=== PATIENT | female | born 1950 | race Caucasian/White ===

== ENCOUNTER 2020-03-02 07:18 | Outpatient (REF) | payer MEDICARE, OTHER, SELFPAY ==
--- NOTE | 2020-03-02 08:00 | MR_ITS ---
EXAMINATION: MR BREAST WITHOUT AND WITH CONTRAST, BILATERAL CLINICAL INFORMATION: 69 year old status post left lumpectomy for breast cancer 2017. COMPARISON: MRI of 05/20/2018 and correlation to mammogram of 08/29/2019. TECHNIQUE: Imaging was performed with a dedicated breast coil. Prior to the administration of contrast, bilateral axial T1 and bilateral axial T2 weighted sequences were obtained. After the uneventful administration of?8 mL of Gadavist, dynamic contrast-enhanced VIBRANT series through the breasts in the axial plane were performed. Subtracted images were performed and reviewed. A delayed sagittal sequence through both breasts was acquired. Additionally, CAD post-processing, including maximum intensity projections, 3-D reconstructions and kinetic analysis, were performed an independent workstation and reviewed by the interpreting radiologist is a portion of this exam. FINDINGS: The patient's fibroglandular tissue demonstrates moderate background enhancement. LEFT BREAST: There is a stable area of architectural distortion in the upper-outer quadrant from prior lumpectomy. There is no associated abnormal enhancement. There are no fluid collections. There are no new areas of mass or non-mass enhancement suspicious of malignancy. Previously described edematous changes in the anterior chest wall are less prominent at this time. There are no additional findings on T2-weighted imaging or kinetic curve analysis. RIGHT BREAST: There are no areas of mass or non-mass enhancements. There are no secondary signs of malignancy. There are no additional findings on T2-weighted imaging or kinetic curve analysis. There is no suspicious internal mammary chain or axillary adenopathy. The previously described area of enhancement along the left chest wall is less pronounced at this time. This may represent resolving postsurgical change. IMPRESSION: 1. Postlumpectomy changes left breast. 2. No new MRI suspicious findings in either breast . ASSESSMENT: LEFT BREAST: BI-RADS 2, benign. RIGHT BREAST: BI-RADS 1, negative. RECOMMENDATIONS: Routine mammographic imaging as per most recent study and MRI as per high-risk protocol.
[2020-03-02 08:01] LABS: Blood Urea Nitrogen 18 mg/dL (9-16); Estimated Glomerular Filt Rate 54
== END 2020-03-02 07:19 | disposition home or self-care (01) ==
LOC: HO.MRI 07:18
PROVIDERS: Surgery; Visit Provider Surgery Plastic and Reconstructive Surgery
DX: C50.412 Malignant neoplasm of upper-outer quadrant of left female breast (principal)
CPT/HCPCS: 77049; 82565; 84520

== ENCOUNTER → 2020-05-01 08:29 | Outpatient (BNVA) | payer MEDICARE, OTHER, SELFPAY | PROVIDERS: PCP Internal Medicine; Referring Provider Internal Medicine; Visit Provider Surgery | DX: Z85.3 Personal history of malignant neoplasm of breast (principal) | CPT/HCPCS: 99212 ==

== ENCOUNTER 2020-07-23 12:19 | Outpatient (REF) | payer MEDICARE, OTHER, SELFPAY ==
[2020-07-23 14:25] LABS: Estimated Average Glucose 105 mg/dL; Hemoglobin A1c % 5.3 %
[2020-07-23 14:55] LABS: Glucose Fasting 102 mg/dL (60-99)
[2020-07-23 15:23] LABS: TSH reflex Free T4 0.55 uIU/mL (0.32-4.0)
== END 2020-07-23 12:20 | disposition home or self-care (01) ==
LOC: HO.LNP 12:19
PROVIDERS: Visit Provider Internal Medicine
DX: E03.9 Hypothyroidism, unspecified (principal); R73.03 Prediabetes
CPT/HCPCS: 82947; 83036; 84443

== ENCOUNTER 2020-10-08 09:45 | Outpatient (REF) | payer MEDICARE, OTHER, SELFPAY ==
--- NOTE | ~2020-10-08 | MM_ITS ---
EXAMINATION: MM SCREENING DIGITAL BREAST TOMOSYNTHESIS, BILATERAL CLINICAL INFORMATION: Screening. Asymptomatic. Status post left lumpectomy for 2016 for invasive ductal cancer with focal DCIS. Due for yearly. COMPARISON: Mammography: 08/29/2019, 08/23/2018, 08/21/2017, 08/29/2016, 08/19/2016 TECHNIQUE: Digital breast tomosynthesis is performed in both the craniocaudal and mediolateral oblique views along with computer-aided detection (CAD). Synthesized 2D images are generated from the tomosynthesis. Additional left MLO view is provided. FINDINGS: There are scattered areas of fibroglandular density (ACR BI-RADS breast composition Category b). There are no significant masses, abnormal calcifications, or other abnormalities. There are post therapy changes again noted on left with mild reduced breast size and stable scarring. No significant changes from prior studies. MM/MM tomosynthesis screening BI IMPRESSION: No mammographic evidence of malignancy. Post therapy changes left breast. ASSESSMENT: BI-RADS 2: Benign RECOMMENDATION: Routine annual mammography screening. This patient's information was entered into a reminder system with a target due date for their next mammogram.
== END 2020-10-08 09:46 | disposition home or self-care (01) ==
LOC: HO.MAMMO 09:45
PROVIDERS: PCP Internal Medicine; Visit Provider Internal Medicine Medical Oncology
DX: Z12.31 Encounter for screening mammogram for malignant neoplasm of breast (principal)
CPT/HCPCS: 77063; 77067

== ENCOUNTER → 2020-10-30 08:48 | Outpatient (BNVA) | payer OTHER, MEDICARE, SELFPAY | PROVIDERS: PCP Internal Medicine; Referring Provider Internal Medicine; Visit Provider Surgery ==

== ENCOUNTER → 2020-12-13 08:54 | Outpatient (BNVA) | payer OTHER, MEDICARE, SELFPAY | PROVIDERS: PCP Internal Medicine; Referring Provider Internal Medicine; Visit Provider Surgery ==

== ENCOUNTER 2021-02-01 10:19 | Outpatient (REF) | payer MEDICARE, OTHER, SELFPAY ==
[2021-02-01 10:23] LABS: MANUAL DIFF FLAG NO
[2021-02-01 11:42] LABS: Basophils Percent Auto 0.6 % (0-2); Eosinophils Absolute Auto 0.3 X10*3/uL (0.0-0.4); Hematocrit 48.9 % (37-47); Hemoglobin 16.3 g/dl (12.0-16.0); Imm Gran Abs Auto 0.02 X10*3/uL (0.00-0.03); Imm Gran Pct Auto 0.3 % (0.0-0.4); Lymphocytes Percent Auto 30.4 % (20-40); Mean Corpuscular HGB Conc 33.3 g/dl (31.0-35.0); Mean Corpuscular Hemoglobin 29.5 pg (27.0-33.0); Mean Corpuscular Volume 88.4 fL (80-98); Mean Platelet Volume 10.2 fL (9.4-12.3); Monocytes Absolute Auto 0.7 X10*3/uL (0.1-1.2); Monocytes Percent Auto 10.2 % (2-11); Neutrophils Absolute Auto 3.6 X10*3/uL (2.0-8.3); Neutrophils Percent Auto 54.5 % (45-73); Platelet Count 250 X10*3/uL (160-400); Red Blood Count 5.53 X10*6/uL (4.20-5.50); Red Cell Distribution Width 12.1 % (11.0-16.0); White Blood Count 6.5 X10*3/uL (4.8-10.8)
[2021-02-01 11:46] LABS: Estimated Average Glucose 108 mg/dL; Hemoglobin A1c % 5.4 %
[2021-02-01 12:04] LABS: Appearance Urine CLEAR; Color Urine YELLOW; Glucose Urine UA NEG (NEG); Leukocyte Esterase Urine 2+ (NEG); Nitrite Urine NEG (NEG); Specific Gravity - Urine 1.015 (1.005-1.025); Urine Blood NEG (NEG); Urine Ketones NEG (NEG); Urine Protein NEG (NEG-TRACE)
[2021-02-01 12:10] LABS: Alanine Aminotransferase 15 U/L (0-31); Albumin Level 4.4 g/dL (3.5-5.0); Alkaline Phosphatase 34 U/L (39-117); Anion Gap 14 (12-20); Aspartate Amino Transferase 19 U/L (5-31); Bilirubin Total 0.8 mg/dL (0.0-1.0); Blood Urea Nitrogen 14 mg/dL (9-16); Calcium 9.6 mg/dL (8.4-10.2); Carbon Dioxide 26 mmol/L (22-29); Chloride 106 mmol/L (96-108); Cholesterol 194 mg/dL; Estimated Glomerular Filt Rate 48; Glucose Fasting 110 mg/dL (60-99); HDL Cholesterol 64 mg/dL; LDL Cholesterol Calculated 102 mg/dl; Potassium 3.8 mmol/L (3.3-5.1); Sodium 142 mmol/L (135-145); Triglycerides 140 mg/dL
[2021-02-01 12:19] LABS: Creatinine Urine 146.94 mg/dL; Microalbum/Creatinine Ratio Ur 5.4 ug/mg cr
[2021-02-01 12:22] LABS: TSH reflex Free T4 0.64 uIU/mL (0.32-4.0)
[2021-02-01 12:42] LABS: Bacteria Urine 4+ /LPF; RBC Urine 0 /HPF (0); Renal Epithelial Cells Urine TRACE /LPF; Squamous Epithelial Cell Urine 1+ /LPF; WBC Clumps Urine NOTED
== END 2021-02-01 10:20 | disposition home or self-care (01) ==
LOC: HO.LNP 10:19
PROVIDERS: Visit Provider Internal Medicine
DX: Z00.00 Encounter for general adult medical examination without abnormal findings (principal); E03.9 Hypothyroidism, unspecified; I10 Essential (primary) hypertension; R73.03 Prediabetes; D72.820 Lymphocytosis (symptomatic)
CPT/HCPCS: 80053; 80061; 81001; 81003; 82043; 83036; 84443; 85025

== ENCOUNTER 2021-03-20 06:49 | Day surgery (SDC) | payer MEDICARE, OTHER, SELFPAY ==
[2021-03-14 12:20] VITALS: BMI 30.9
[2021-03-15 12:22] VITALS: BMI 29.9
--- NOTE | 2021-03-19 10:00 | HO.ANESPROP2 ---
Documented by User: Alysia Bell NP 03/19/21 10:04 HPI - Anesthesia Eval Consult details Narrative: 70yo F for Colonoscopy PMFSH Active Problems Active Problems: All Active Problems (Updated 03/15/21 @ 12:20 by Renetta Stevenson, EVELYN) History of left breast cancer (Acute) Past Medical History Medical History Allergy desensitization therapy GERD (gastroesophageal reflux disease) Hiatal hernia History of left breast cancer Hypertension Hypothyroidism Migraine Murmur Family History Family History Father Hypertension Mother Hypertension Sister Cancer of unknown origin Paternal Grandfather Liver cancer Surgical History Surgical History H/O hysterectomy for benign disease H/O oophorectomy History of bunionectomy of left great toe History of cholecystectomy History of esophagogastroduodenoscopy (EGD) History of tonsillectomy Hx of colonoscopy Status post left breast lumpectomy Social History Social History 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 ( has lung cancer Stage IV) Patient Tobacco Use Status: Never used Tobacco Are you DNR?: No Advance Directives: No (will bring copy dos) Advance Directives Information Provided: No Advance Directives on File: No Meds Allergies Allergy/AdvReac Type Severity Reaction Status Date / Time oxycodone Allergy Unknown diarrhea/upset Verified 03/15/21 12:20 stomach ENVIRONMENTAL Allergy Intermediate HAYFEVER Uncoded 03/15/21 12:20 SYMPTOMS Home Medications Medication Instructions Recorded Confirmed Last Taken Type anastrozole 1 mg tablet 1 mg PO DAILY 05/01/20 03/15/21 Unknown History ascorbate calcium (vitamin C) 500 500 mg PO DAILY 05/01/20 03/15/21 Unknown History mg tablet cholecalciferol (vitamin D3) 25 25 mcg PO DAILY 05/01/20 03/15/21 Unknown History mcg (1,000 unit) capsule irbesartan 150 1 tab PO DAILY 05/01/20 03/15/21 Unknown History mg-hydrochlorothiazide 12.5 mg tablet levothyroxine 88 mcg capsule 88 mcg PO DAILY 05/01/20 03/15/21 03/20/21 History multivit with 1 tab PO DAILY 05/01/20 03/15/21 Unknown History tuqqadcq-qzqk-QP-lutein 8 mg iron-400 mcg-300 mcg tablet (Centrum Silver Women) sumatriptan succinate 100 mg 100 mg PO Q2-4H PRN 05/01/20 03/15/21 Unknown History tablet (Imitrex) calcium 03/15/21 03/15/21 Unknown History Exam Exam Date and Time: March 19, 2021 1000 Height,Weight and Vital Signs: Height 5 ft 5 in Weight 81.647 kg Pertinent Lab Results Pertinent Lab Results: Laboratory Tests 02/01/21 02/01/21 07:50 07:50 WBC 6.5 Hgb 16.3 H Hct 48.9 H Plt Count 250 Sodium 142 Potassium 3.8 Chloride 106 Carbon Dioxide 26 BUN 14 Creatinine 1.12 Assessment and Plan Assessment Anesthesia Assessment: Chart Reviewed Documented by User: Mary Anne Cardenas MD 03/20/21 08:12 [facility] Past Medical History Medical History Allergy desensitization therapy GERD (gastroesophageal reflux disease) Hiatal hernia History of left breast cancer Hypertension Hypothyroidism Migraine Murmur Family History Family History Father Hypertension Mother Hypertension Sister Cancer of unknown origin Paternal Grandfather Liver cancer Surgical History Surgical History H/O hysterectomy for benign disease H/O oophorectomy History of bunionectomy of left great toe History of cholecystectomy History of esophagogastroduodenoscopy (EGD) History of tonsillectomy Hx of colonoscopy Status post left breast lumpectomy History of Problems with Anesthesia: Yes (Ponv) Social History Social History 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 ( has lung cancer Stage IV) Patient Tobacco Use Status: Never used Tobacco Are you DNR?: No Advance Directives: No (will bring copy dos) Advance Directives Information Provided: No Advance Directives on File: No Meds Allergies Allergy/AdvReac Type Severity Reaction Status Date / Time oxycodone Allergy Unknown diarrhea/upset Verified 03/15/21 12:20 stomach ENVIRONMENTAL Allergy Intermediate HAYFEVER Uncoded 03/15/21 12:20 SYMPTOMS Home Medications Medication Instructions Recorded Confirmed Last Taken Type anastrozole 1 mg tablet 1 mg PO DAILY 05/01/20 03/15/21 Unknown History ascorbate calcium (vitamin C) 500 500 mg PO DAILY 05/01/20 03/15/21 Unknown History mg tablet cholecalciferol (vitamin D3) 25 25 mcg PO DAILY 05/01/20 03/15/21 Unknown History mcg (1,000 unit) capsule irbesartan 150 1 tab PO DAILY 05/01/20 03/15/21 Unknown History mg-hydrochlorothiazide 12.5 mg tablet levothyroxine 88 mcg capsule 88 mcg PO DAILY 05/01/20 03/15/21 03/20/21 History multivit with 1 tab PO DAILY 05/01/20 03/15/21 Unknown History yhhgzqwp-vrnb-DG-lutein 8 mg iron-400 mcg-300 mcg tablet (Centrum Silver Women) sumatriptan succinate 100 mg 100 mg PO Q2-4H PRN 05/01/20 03/15/21 Unknown History tablet (Imitrex) calcium 03/15/21 03/15/21 Unknown History Exam Airway Mallampati Class: III (Small mouth) TM Dist: >3cm Neck ROM: Full Loose/Missing/Broken Teeth: No Lungs: RRR Other: CTA Assessment and Plan Assessment Anesthesia Assessment: Anesthesia Plan Discussed Final Anesthetic Review History of Problems with Anesthesia: Yes (Ponv) NPO: Yes ASA Class: II Final Preanesthetic Review: Meds/Allgs Chart Reviewed, Consent Obtained/Reviewed and Anes Risks/Benef Reviewed Patient Risk: Low Procedure Risk: Low Anesthetic Plan Anesthetic Plan: MAC: Disposition: Standard PACU
[2021-03-20] MEDS: Lactated Ringers 1,000 ML 100 ML IVCONT (07:28)
[2021-03-20 09:07] VITALS: BP 105/54; PULSE 76; RESP 18; TEMP 36.6; O2SAT 97
--- NOTE | 2021-03-20 09:10 | P.BOP_ITS ---
Brief Operative Note Date of Service: 03/20/21 Pre-op diagnosis: Screening Post-op diagnosis: other (Colon polyps) Procedure: Colonoscopy to the cecum and TI with cold snare polypectomy x 2 Surgeon: Rubén Romero Anesthesia: MAC Was an Gripper Attacher used for this Procedure?: No Estimated blood loss (mL): 3.0 Pathology: other (A. Distal rectal polyps) Condition: stable Disposition: PACU
[2021-03-20 09:22] VITALS: BP 115/39; PULSE 75; RESP 16; TEMP 36.6; O2SAT 96
--- NOTE | 2021-03-20 10:02 | OP_ITS ---
SURGEON: Rubén Romero MD INDICATIONS: The patient presents for followup of personal history of tubular adenoma of the colon, and need for colorectal cancer screening. Full consent has been obtained from her for this, including risks of bleeding and perforation. PREOPERATIVE DIAGNOSIS: POSTOPERATIVE DIAGNOSIS: PROCEDURE PERFORMED: Colonoscopy to cecum and terminal ileum with snare polypectomy. ESTIMATED BLOOD LOSS: COMPLICATIONS: ANESTHESIA: Monitored anesthesia care. ASSISTANTS: SPECIMENS: PREOPERATIVE DIAGNOSES: Colorectal cancer screening and personal history of tubular adenoma of the colon. POSTOPERATIVE DIAGNOSES: Colorectal cancer screening and personal history of tubular adenoma of the colon, colon polyps, diverticulosis, and internal hemorrhoids. DESCRIPTION OF PROCEDURE: The patient was placed in the left lateral decubitus position. The digital rectal exam revealed no abnormalities. The Olympus video pediatric colonoscope was entered into the rectum and advanced easily to the cecum. Once in the cecum, I did identify normal-appearing cecal pouch with appendiceal orifice and a normal-appearing ileocecal valve. The terminal ileum was cannulated and appeared normal. Scope was withdrawn back in the colon. The entire cecum and ileocecal valve appeared normal. The scope was slowly withdrawn assessing all mucosal surfaces carefully. Preparation was excellent. There was a mild amount of sigmoid diverticulosis. There was no sign of colitis nor angiodysplasia. The only polyps that were visualized was seen in the retroflexed position in the rectum. There were 2 approximately 4 or 5 mm polyps, which were each snared and recovered with the cold snare. The polypectomy sites appeared clean, without any sign of residual polyp nor bleeding. There were internal hemorrhoids noted as well. The scope was straightened out and withdrawn from the patient. She tolerated the procedure well and was returned to the recovery area in stable condition. IMPRESSION: 1. Rectal polyps, status post cold snare polypectomy. 2. Diverticulosis. 3. Internal hemorrhoids. PLAN: The results of the pathology will be checked. I would recommend a repeat colonoscopy in 5 years for further screening. She was advised not to use any aspirin nor NSAIDs for 1 week. MD RAFI Hanks/JAY JAY / [id number] MTDD
== END 2021-03-20 10:23 | disposition home or self-care (01) ==
PROVIDERS: PCP Internal Medicine; Visit Provider Internal Medicine
PROC: 0DJD8ZZ Inspection of Lower Intestinal Tract, Via Natural or Artificial Opening Endoscopic (ICD-10-PCS; CPT 45378; principal; 2021-03-20 08:10)
DX: Z12.11 Encounter for screening for malignant neoplasm of colon (principal); Z86.010 Personal history of colon polyps; K62.1 Rectal polyp; K57.30 Diverticulosis of large intestine without perforation or abscess without bleeding; K64.8 Other hemorrhoids; K21.9 Gastro-esophageal reflux disease without esophagitis; I10 Essential (primary) hypertension; C50.912 Malignant neoplasm of unspecified site of left female breast; Z79.811 Long term (current) use of aromatase inhibitors; Z92.3 Personal history of irradiation; Z79.899 Other long term (current) drug therapy; Z90.49 Acquired absence of other specified parts of digestive tract; Z87.01 Personal history of pneumonia (recurrent)
CPT/HCPCS: 45385; 88305

== ENCOUNTER → 2021-07-02 11:31 | Outpatient (BNVA) | payer MEDICARE, OTHER, SELFPAY | PROVIDERS: PCP Internal Medicine; Referring Provider Internal Medicine; Visit Provider Surgery | DX: Z85.3 Personal history of malignant neoplasm of breast (principal) | CPT/HCPCS: 99212 ==

== ENCOUNTER 2021-10-07 08:50 | Outpatient (REF) | payer MEDICARE, OTHER, SELFPAY ==
--- NOTE | ~2021-10-07 | MR_ITS ---
MR LUMBAR SPINE WITHOUT IV CONTRAST CLINICAL INFORMATION: Lumbar disc disease with radiculopathy. COMPARISON: None available. TECHNIQUE: MRI of the lumbar spine was obtained using routine sequences without contrast. FINDINGS: There is transitional anatomy. For the purposes of this report there are hypoplastic ribs versus articulating transverse processes at L1, there are 5 lumbar-type vertebral bodies, and S1 is lumbarized, sharing a rudimentary disc with S2 and incorporated into the sacrum bilaterally. Please correlate with plain films prior to any percutaneous or surgical intervention. There is grade 1/2 degenerative anterolisthesis of L4 on L5 and there is grade 1 degenerative anterolisthesis of L5 on S1. Vertebral body heights are maintained. Disc desiccation at all lumbar levels with exception of L1 on L2 and L2-L3. There is no bone marrow edema. No acute fractures. Conus terminates at the L1 level. No significant extraspinal soft tissue findings. L1-L2: Slight annular disc bulge. Mild bilateral facet arthropathy and ligamentum flavum thickening. No central canal stenosis and no foraminal stenosis. L2-L3: Small annular disc bulge and moderate bilateral hypertrophic facet arthropathy and ligamentum flavum thickening. No central canal stenosis and no foraminal stenosis. L3-L4: There is a diffuse annular disc bulge with a superimposed left paracentral/left lateral disc protrusion that compresses the traversing left L4 nerve root within the left subarticular zone and that results in moderate left-sided foraminal stenosis and probable mass effect on the extraforaminal left L3 nerve root. A right lateral disc protrusion and facet arthropathy result in moderate right-sided foraminal stenosis and mild mass effect on the exiting right L3 nerve root as well. Mild central canal stenosis at this level. L4-L5: Grade 1/2 degenerative anterolisthesis in the setting of severe bilateral hypertrophic facet arthropathy. Uncovered disc osteophyte and ligamentum flavum thickening. Findings in concert result in severe central canal stenosis as well as moderate bilateral foraminal stenosis with mass effect on the exiting L4 nerve roots bilaterally. L5-S1: Grade 1 degenerative anterolisthesis. Severe bilateral hypertrophic facet arthropathy. No central canal stenosis. Mild right-sided foraminal encroachment. MR/MR lumbar spine wo con IMPRESSION: - There is transitional anatomy. For the purposes of this report there are hypoplastic ribs versus articulating transverse processes at L1, there are 5 lumbar-type vertebral bodies, and S1 is lumbarized, sharing a rudimentary disc with S2 and incorporated into the sacrum bilaterally. Please correlate with plain films prior to any percutaneous or surgical intervention. - At L4-L5, grade 1/2 degenerative anterolisthesis and advanced multifactorial degenerative changes result in severe central canal stenosis as well as moderate bilateral foraminal stenosis with mass effect on the exiting L4 nerve roots bilaterally. - At L3-L4, a left paracentral/left lateral disc protrusion compresses the traversing left L4 nerve root within the left subarticular zone and results in moderate left-sided foraminal stenosis with probable mass effect on the extraforaminal left L3 nerve root. Spondylitic changes at L3-L4 also result in moderate right-sided foraminal stenosis and mild mass effect on the exiting right L3 nerve root as well. - Additional degenerative changes as discussed above. There is grade 1 degenerative anterolisthesis of L5 on S1 in the setting of advanced bilateral facet arthropathy at this level.
== END 2021-10-07 08:51 | disposition home or self-care (01) ==
LOC: HO.MRI 08:50
PROVIDERS: Visit Provider Internal Medicine
DX: M51.16 Intervertebral disc disorders with radiculopathy, lumbar region (principal); Z85.3 Personal history of malignant neoplasm of breast
CPT/HCPCS: 72148

== ENCOUNTER 2021-10-11 07:59 | Outpatient (REF) | payer MEDICARE, OTHER, SELFPAY ==
--- NOTE | ~2021-10-11 | MM_ITS ---
EXAMINATION: MM SCREENING DIGITAL BREAST TOMOSYNTHESIS, BILATERAL CLINICAL INFORMATION: History invasive ductal cancer left breast, status post lumpectomy 09/10/2016. Due for yearly. COMPARISON: Mammography: 10/08/2020, 08/29/2019, 08/23/2018, 08/21/2017 TECHNIQUE: Digital breast tomosynthesis is performed in both the craniocaudal and mediolateral oblique views along with computer-aided detection (CAD). Synthesized 2D images are generated from the tomosynthesis. Additional exaggerated left CC view is provided. FINDINGS: There are scattered areas of fibroglandular density (ACR BI-RADS breast composition Category b). There are no significant masses, abnormal calcifications, or other abnormalities. No developing density or interval architectural changes. The axilla are unremarkable. There are stable post therapy changes left breast with mild reduced breast size and minor scarring similar to prior studies. MM/MM tomosynthesis screening BI IMPRESSION: No mammographic evidence of malignancy. Post therapy changes left breast. ASSESSMENT: BI-RADS 2: Benign RECOMMENDATION: Routine annual mammography screening. This patient's information was entered into a reminder system with a target due date for their next mammogram.
== END 2021-10-11 08:00 | disposition home or self-care (01) ==
LOC: HO.MAMMO 07:59
PROVIDERS: PCP Internal Medicine Medical Oncology; Visit Provider Internal Medicine Medical Oncology
DX: Z12.31 Encounter for screening mammogram for malignant neoplasm of breast (principal); Z85.3 Personal history of malignant neoplasm of breast
CPT/HCPCS: 77063; 77067

== ENCOUNTER 2021-12-09 08:00 | Outpatient (RCR) | payer MEDICARE, SELFPAY ==
--- NOTE | 2021-12-04 15:52 | MHC.PT.EP ---
[facility] [place] Office [place] Office [place] Office [address] [phone] F: [phone] F: [phone] F: [phone] F: [phone] Physical Therapy Plan of Care Date of Evaluation: Date of Surgery: Diagnosis: LBP with R sciatica Assessment: Pt is a 71 y/o female referred to PT for eval and treat of R LE Sciatica resulting in decreased tolerance for trunk bending, walking for duration, driving, sleeping, standing for duration, as well as performing HH chores secondary to increased R LE neural tension with radicular symptoms, decreased R LE strength, gait abnormality, lumbar hypomobility, and pain. Pt is deemed an appropriate candidate to receive skilled PT in order to address her physical limitations to improve her functional ability. Frequency and Duration: The patient will be seen 2 x / wk x 5 wks. Short Term Goals: Initiate HEP. R LE radicular Sx abolished. 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 improve core strength to at least good (-); initial: fair (+). Pt will report at most 1/4 disturbed night's sleep; initial: 1/2 disturbed. Pt will no longer be painful with travel; initial: increases pain though does not seek alternate forms of travel. Treatment Plan: Modalities to reduce pain, spasms and effusion. Manual therapy to restore motion and function. Therapeutic exercise to improve strength and flexibility. Neuromuscular re-education for posture and balance. Therapeutic activities to return to functional activities of daily living. Electronically signed by: Stanford Saab PT. Please sign and return to therapist. Thank you for your referral.
== END 2022-02-04 14:34 | disposition home or self-care (01) ==
LOC: HO.PTWFD 08:00
PROVIDERS: Visit Provider Internal Medicine
DX: M51.16 Intervertebral disc disorders with radiculopathy, lumbar region (principal)
CPT/HCPCS: 97035; 97110; 97161; 97530

== ENCOUNTER → 2022-01-07 09:41 | Outpatient (BNVA) | payer MEDICARE, SELFPAY | PROVIDERS: PCP Internal Medicine; Visit Provider Surgery | DX: Z85.3 Personal history of malignant neoplasm of breast (principal) | CPT/HCPCS: 99212 ==

== ENCOUNTER 2022-01-13 10:59 | Outpatient (REF) | payer MEDICARE, SELFPAY ==
--- NOTE | ~2022-01-13 | US_ITS ---
EXAMINATION: US ABDOMEN COMPLETE CLINICAL INFORMATION: Abdominal pain. COMPARISON: None TECHNIQUE: Real-time imaging of the abdominal viscera. FINDINGS: PANCREAS: Normal. ABDOMINAL AORTA: The proximal, mid, and distal segments are normal in caliber. INFERIOR VENA CAVA: Visualized portions are normal. LIVER: Normal. The liver is normal in size. The liver contour is normal. Parenchymal echogenicity is normal. No focal hepatic lesion. There is no intrahepatic biliary duct dilatation seen. GALLBLADDER: Surgically absent. COMMON BILE DUCT: Normal in caliber measuring 0.6 cm in diameter. RIGHT KIDNEY: Normal. No hydronephrosis. No renal calculi or focal parenchymal lesions. The kidney measures 10.8 cm in maximum dimension. LEFT KIDNEY: Normal. No hydronephrosis. No renal calculi or focal parenchymal lesions. The kidney measures 10.3 cm in maximum dimension. SPLEEN: Normal. The spleen measures 8.4 cm in maximum dimension. FREE FLUID: None. US/US abdomen complete IMPRESSION: Unremarkable complete abdomen ultrasound.
[2022-01-13 16:11] LABS: Appearance Urine Clear; Color Urine Yellow; Glucose Urine UA Negative (Negative); Leukocyte Esterase Urine Negative (Negative); Nitrite Urine Negative (Negative); PH 6.5 (5.0-8.0); Specific Gravity - Urine <= 1.005 (1.005-1.025); Urine Blood Negative (Negative); Urine Ketones Negative (Negative); Urine Protein Negative (Neg-Trace)
[2022-01-13 16:15] LABS: Bacteria Urine None Seen (None Seen); Hyaline Casts Urine 0-2 /LPF (0-2); RBC Urine 0-2 /HPF (0-2); Squamous Epithelial Cell Urine 0-2 /HPF (0-2); WBC Urine 0-5 /HPF (0-5)
== END 2022-01-13 11:00 | disposition home or self-care (01) ==
LOC: HO.US 10:59
PROVIDERS: PCP Internal Medicine; Visit Provider Internal Medicine
DX: R10.9 Unspecified abdominal pain (principal)
CPT/HCPCS: 76700; 81001; 87086

== ENCOUNTER 2022-02-03 11:47 | Outpatient (REF) | payer MEDICARE, SELFPAY ==
[2022-02-03 11:51] LABS: MANUAL DIFF FLAG NO
[2022-02-03 12:17] LABS: Basophils Absolute Auto 0.1 X10*3/uL (0.0-0.2); Basophils Percent Auto 1.1 % (0-2); Eosinophils Absolute Auto 0.4 X10*3/uL (0.0-0.4); Eosinophils Percent Auto 6.9 % (0-4); Hematocrit 44.3 % (37.0-47.0); Imm Gran Abs Auto 0.01 X10*3/uL (0.00-0.03); Imm Gran Pct Auto 0.2 % (0.0-0.4); Lymphocytes Absolute Auto 1.9 X10*3/uL (1.2-4.9); Lymphocytes Percent Auto 33.7 % (20-40); Mean Corpuscular HGB Conc 33.9 g/dl (31.0-35.0); Mean Corpuscular Hemoglobin 30.1 pg (27.0-33.0); Mean Corpuscular Volume 88.8 fL (80.0-98.0); Mean Platelet Volume 10.6 fL (9.4-12.3); Monocytes Absolute Auto 0.7 X10*3/uL (0.1-1.2); Monocytes Percent Auto 11.5 % (2-11); Neutrophils Absolute Auto 2.6 x10*3/uL (2.0-8.3); Neutrophils Percent Auto 46.6 % (45-73); Platelet Count 221 X10*3/uL (160-400); Red Blood Count 4.99 X10*6/uL (4.20-5.50); Red Cell Distribution Width 12.4 % (11.0-16.0); White Blood Count 5.6 X10*3/uL (4.8-10.8)
[2022-02-03 12:20] LABS: Appearance Urine Clear; Color Urine Yellow; Glucose Urine UA Negative (Negative); Leukocyte Esterase Urine Moderate (2+) (Negative); Nitrite Urine Negative (Negative); PH 5.5 (5.0-9.0); Specific Gravity - Urine 1.015 (1.005-1.025); Urine Blood Negative (Negative); Urine Ketones Negative (Negative); Urine Protein Negative (Neg-Trace)
[2022-02-03 12:28] LABS: Bacteria Urine None Seen (None Seen); Hyaline Casts Urine 0-2 /LPF (0-2); RBC Urine 0-2 /HPF (0-2); Squamous Epithelial Cell Urine 0-2 /HPF (0-2)
[2022-02-03 12:34] LABS: Alanine Aminotransferase 24 U/L (0-31); Alkaline Phosphatase 34 U/L (39-117); Anion Gap 15 (12-20); Aspartate Amino Transferase 20 U/L (5-31); Bilirubin Total 0.5 mg/dL (0.0-1.0); Blood Urea Nitrogen 20 mg/dL (9-16); Calcium 8.8 mg/dL (8.4-10.2); Carbon Dioxide 25 mmol/L (22-29); Chloride 104 mmol/L (96-108); Cholesterol 188 mg/dL; Estimated Glomerular Filt Rate 56; Glucose Fasting 106 mg/dL (60-99); HDL Cholesterol 62 mg/dL; LDL Cholesterol Calculated 109 mg/dl; Potassium 3.8 mmol/L (3.3-5.1); Sodium 140 mmol/L (135-145); Total Protein 6.5 g/dL (6.5-8.0); Triglycerides 89 mg/dL
[2022-02-03 12:35] LABS: Estimated Average Glucose 105 mg/dL; Hemoglobin A1c % 5.3 %
[2022-02-03 12:44] LABS: Creatinine Urine 102.13 mg/dL; Microalbum/Creatinine Ratio Ur 7.8 ug/mg cr
[2022-02-03 12:56] LABS: TSH reflex Free T4 0.69 uIU/mL (0.32-4.0)
== END 2022-02-03 11:48 | disposition home or self-care (01) ==
LOC: HO.LNP 11:47
PROVIDERS: Visit Provider Internal Medicine
DX: Z00.00 Encounter for general adult medical examination without abnormal findings (principal); I10 Essential (primary) hypertension; E03.9 Hypothyroidism, unspecified; R73.03 Prediabetes; D72.820 Lymphocytosis (symptomatic)
CPT/HCPCS: 80053; 80061; 81001; 82043; 83036; 84443; 85025

== ENCOUNTER 2022-05-01 17:16 | Outpatient (REF) | payer MEDICARE, SELFPAY ==
--- NOTE | ~2022-05-01 | XR_ITS ---
EXAMINATION: XR knee standing BI, XR knee RT 2V CLINICAL INFORMATION: Reason for Exam M25.569 - Pain in unspecified knee COMPARISON: None. TECHNIQUE: 2 views of the right knee and standing view of the bilateral knee XR/XR knee standing BI FINDINGS/IMPRESSION: * No acute fracture or dislocation. * Mild osteoarthritis of the right knee joint with tricompartmental osteophytosis and narrowing of the medial tibiofemoral compartment. * No soft tissue abnormality.
--- NOTE | ~2022-05-01 | XR_ITS ---
EXAMINATION: XR knee standing BI, XR knee RT 2V CLINICAL INFORMATION: Reason for Exam M25.569 - Pain in unspecified knee COMPARISON: None. TECHNIQUE: 2 views of the right knee and standing view of the bilateral knee XR/XR knee RT 2V FINDINGS/IMPRESSION: * No acute fracture or dislocation. * Mild osteoarthritis of the right knee joint with tricompartmental osteophytosis and narrowing of the medial tibiofemoral compartment. * No soft tissue abnormality.
== END 2022-05-01 17:17 | disposition home or self-care (01) ==
LOC: HO.HOSX 17:16
PROVIDERS: Visit Provider Orthopaedic Surgery
DX: M25.561 Pain in right knee (principal)
CPT/HCPCS: 73560; 73565

== ENCOUNTER → 2022-05-02 10:47 | Outpatient (BNVA) | payer MEDICARE, SELFPAY | PROVIDERS: PCP Internal Medicine; Visit Provider Orthopaedic Surgery | DX: M17.11 Unilateral primary osteoarthritis, right knee (principal); M21.061 Valgus deformity, not elsewhere classified, right knee; M25.561 Pain in right knee | CPT/HCPCS: 20610; 99202; J1100 ==

== ENCOUNTER → 2022-07-10 10:51 | Outpatient (BNVA) | payer MEDICARE, SELFPAY | PROVIDERS: PCP Internal Medicine; Visit Provider Surgery | DX: Z85.3 Personal history of malignant neoplasm of breast (principal) | CPT/HCPCS: 99212 ==

== ENCOUNTER 2022-08-11 11:01 | Outpatient (REF) | payer MEDICARE, SELFPAY ==
[2022-08-11 11:55] LABS: TSH reflex Free T4 0.55 uIU/mL (0.32-4.0)
== END 2022-08-11 11:02 | disposition home or self-care (01) ==
LOC: HO.LNP 11:01
PROVIDERS: Visit Provider Internal Medicine
DX: E03.9 Hypothyroidism, unspecified (principal)
CPT/HCPCS: 84443

== ENCOUNTER 2022-08-18 10:43 | Outpatient (REF) | payer MEDICARE, SELFPAY ==
[2022-08-19 18:28] LABS: Lyme Abs Screen <0.90 index
== END 2022-08-18 10:44 | disposition home or self-care (01) ==
LOC: HO.LNP 10:43
PROVIDERS: Visit Provider Internal Medicine
DX: M25.521 Pain in right elbow (principal)
CPT/HCPCS: 86617; 86618

== ENCOUNTER 2022-10-14 08:10 | Outpatient (REF) | payer MEDICARE, SELFPAY ==
--- NOTE | ~2022-10-14 | MM_ITS ---
EXAMINATION: MM SCREENING DIGITAL BREAST TOMOSYNTHESIS, BILATERAL CLINICAL INFORMATION: Due for yearly. Left IDC status post lumpectomy 09/10/2016. COMPARISON: Mammography: 10/11/2021, 10/08/2020, 08/29/2019 TECHNIQUE: Digital breast tomosynthesis is performed in both the craniocaudal and mediolateral oblique views along with computer-aided detection (CAD). Synthesized 2D images are generated from the tomosynthesis. FINDINGS: There are scattered areas of fibroglandular density (ACR BI-RADS breast composition Category b). Parenchymal pattern is similar to prior studies. There is no developing density or interval architectural abnormality. There are no significant masses, abnormal calcifications, or other abnormalities. Again, there are minor post therapy changes on the left with mild reduced breast size and stable scarring. No significant changes. MM/MM tomosynthesis screening BI IMPRESSION: No mammographic evidence of malignancy. ASSESSMENT: BI-RADS 2: Benign RECOMMENDATION: Routine annual mammography screening. This patient's information was entered into a reminder system with a target due date for their next mammogram.
== END 2022-10-14 08:11 | disposition home or self-care (01) ==
LOC: HO.MAMMO 08:10
PROVIDERS: PCP Internal Medicine; Visit Provider Internal Medicine Medical Oncology
DX: Z12.31 Encounter for screening mammogram for malignant neoplasm of breast (principal)
CPT/HCPCS: 77063; 77067

== ENCOUNTER 2023-02-05 14:16 | Outpatient (REF) | payer MEDICARE, SELFPAY ==
[2023-02-05 14:25] LABS: MANUAL DIFF FLAG NO
[2023-02-05 14:33] LABS: Basophils Percent Auto 0.8 % (0-2); Eosinophils Absolute Auto 0.2 X10*3/uL (0.0-0.4); Hematocrit 46.4 % (37.0-47.0); Hemoglobin 15.7 g/dl (12.0-16.0); Imm Gran Abs Auto 0.02 X10*3/uL (0.00-0.03); Imm Gran Pct Auto 0.4 % (0.0-0.4); Lymphocytes Absolute Auto 1.7 X10*3/uL (1.2-4.9); Lymphocytes Percent Auto 34.3 % (20-40); Mean Corpuscular HGB Conc 33.8 g/dl (31.0-35.0); Mean Corpuscular Volume 88.5 fL (80.0-98.0); Mean Platelet Volume 10.2 fL (9.4-12.3); Monocytes Absolute Auto 0.6 X10*3/uL (0.1-1.2); Monocytes Percent Auto 11.5 % (2-11); Neutrophils Absolute Auto 2.4 x10*3/uL (2.0-8.3); Platelet Count 223 X10*3/uL (160-400); Red Blood Count 5.24 X10*6/uL (4.20-5.50); Red Cell Distribution Width 12.5 % (11.0-16.0)
[2023-02-05 14:36] LABS: Appearance Urine Clear; Color Urine Yellow; Glucose Urine UA Negative (Negative); Leukocyte Esterase Urine Small (1+) (Negative); Nitrite Urine Negative (Negative); UMIC TRIGGER UACC YES; Urine Blood Negative (Negative); Urine Ketones Negative (Negative); Urine Protein Negative (Neg-Trace)
[2023-02-05 14:39] LABS: Bacteria Urine Trace (None Seen); Hyaline Casts Urine 0-2 /LPF (0-2); RBC Urine 0-2 /HPF (0-2); UACC Culture Trigger YES
[2023-02-05 14:41] LABS: Estimated Average Glucose 105 mg/dL; Hemoglobin A1c % 5.3 % (<6.0)
[2023-02-05 15:00] LABS: Alanine Aminotransferase 24 U/L (0-31); Albumin Level 4.1 g/dL (3.5-5.0); Alkaline Phosphatase 39 U/L (39-117); Anion Gap 13 (12-20); Aspartate Amino Transferase 24 U/L (5-31); Bilirubin Total 0.5 mg/dL (0.0-1.0); Blood Urea Nitrogen 22 mg/dL (9-16); Calcium 8.9 mg/dL (8.4-10.2); Carbon Dioxide 25 mmol/L (22-29); Chloride 108 mmol/L (96-108); Cholesterol 203 mg/dL (<200); Estimated Glomerular Filt Rate 52; Glucose Fasting 95 mg/dL (60-99); HDL Cholesterol 74 mg/dL (>40); LDL Cholesterol Calculated 109 mg/dL (<100); Sodium 142 mmol/L (135-145); Total Protein 6.6 g/dL (6.5-8.0); Triglycerides 104 mg/dL (<150)
[2023-02-05 15:04] LABS: TSH reflex Free T4 0.47 uIU/mL (0.32-4.0)
[2023-02-05 15:21] LABS: Creatinine Urine 146.03 mg/dL; Microalbum/Creatinine Ratio Ur 6.8 ug/mg cr (<30)
== END 2023-02-05 14:17 | disposition home or self-care (01) ==
LOC: HO.LNP 14:16
PROVIDERS: Visit Provider Internal Medicine
DX: Z00.00 Encounter for general adult medical examination without abnormal findings (principal); I10 Essential (primary) hypertension; E03.9 Hypothyroidism, unspecified; R73.03 Prediabetes; D72.820 Lymphocytosis (symptomatic)
CPT/HCPCS: 80053; 80061; 81001; 82043; 82570; 83036; 84443; 85025; 87086

== ENCOUNTER 2023-07-09 09:00 | Outpatient (AMB) | payer MEDICARE, SELFPAY ==
--- NOTE | 2023-07-09 09:00 | MHC.OFFVIS ---
Intake Vital Signs 07/09/23 09:11 Height 5 ft 5 in Weight 190 lb 6 oz BMI 31.7 BP 130/82 Blood Pressure Location Lt brachial Position Sitting Intake Visit Reasons: Yearly Breast Exam Intake Note: Patient is seen in office for yearly breast exam. Pt c/o: under arm feels tender on occasions, all done with Anastrozole since 10/2022 mm sched:10/21/23 Compliance Auditor Required: No Accompanied by: Self / Same As Patient Allergies oxycodone Allergy (Unknown, Verified 07/09/23 09:07) diarrhea/upset stomach ENVIRONMENTAL Allergy (Intermediate, Uncoded 07/09/23 09:07) HAYFEVER SYMPTOMS Medication List - Last Reconciled 07/09/23 by Ivan Sanders MD amlodipine 5 mg PO DAILY calcium carbonate 650 mg PO DAILY cholecalciferol (vitamin D3) 25 mcg PO DAILY irbesartan-hydrochlorothiazide 300-12.5 mg 1 tab PO levothyroxine 88 mcg PO DAILY zjevcgza-wsk-fslo-FA-vit K-lut 8 mg iron-400 mcg-50 mcg (Centrum Silver Women) 1 tab PO DAILY sumatriptan succinate (Imitrex) 100 mg PO Q2-4H PRN HPI HPI Comments History of Present Illness Details 72-year-old female patient for patient of Dr. Simeon returning for a breast cancer examination. She presented on July 2016 with an abnormal mammogram which revealed a rounded heterogeneous lesion at the 1 o'clock position, 3 cm from the nipple measuring 5 x 5 mm. She subsequent underwent a left breast lumpectomy with needle localization and left axillary sentinel node biopsy on 09/10/2016. Pathology was positive for infiltrating ductal carcinoma, grade 1, 7 mm in diameter, ER/NV positive, HER2 Nickolas negative, with 1 benign axillary lymph node. She underwent radiation therapy at [facility] which was completed on 11/14/2016. She was subsequently started on anastrozole and followed by Dr. Sanchez. She was treated with anastrozole for [address] Sanchez. Her last breast MRI of 06/05/2022 revealed benign findings bilaterally (BI-RADS 2 bilaterally). Her daughter was diagnosed with a low suspicion finding on mammogram and is awaiting a six-month follow-up study. The patient's last mammogram performed on 10/14/2022 revealed no mammographic evidence of malignancy ( BI-RADS 2 ). Annual screening mammography is recommended in 1 year. She feels well and denies any ongoing breast symptoms. 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 care 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 at home: Yes ( has lung cancer Stage IV) Patient Tobacco Use Status: Never used Tobacco Current occupational status: retired Review of Systems Const All systems reviewed & are unremarkable except as noted in HPI and below Denies anorexia, Denies chills and Denies fever(s) Card Denies chest pain, Denies palpitations and Denies dyspnea Resp Denies chest congestion, Denies cough, Denies hemoptysis and Denies dyspnea Denies nipple discharge Skin/Breast Denies breast swelling, Denies breast skin changes, Denies breast pain, Denies breast mass, Denies change in breast shape and Denies nipple discharge Psych Denies anxiety Endo Denies palpitations Physical Exam Const General: cooperative, comfortable, no acute distress and well developed Nutritional Appearance: well nourished Orientation/consciousness: patient oriented x3 Limitations: no limitations Chest Other: Left breast: No skin change, no nipple retraction, no nipple discharge, no palpable mass, no enlarged lymph nodes. Well-healed incision in the left upper outer quadrant. Right breast: No skin change, no nipple retraction, no nipple discharge, no palpable mass, no enlarged lymph nodes Skin General skin exam: no rashes or lesions noted Neuro General: patient oriented x3 Extrem General: Yes no clubbing, cyanosis or edema Assessment & Plan Assessment & Plan (1) History of left breast cancer: Code(s): Z85.3 - Personal history of malignant neoplasm of breast Plan: Patient returns for a follow-up breast examination , 7 years after left breast carcinoma surgery. She feels well and denies any ongoing breast symptoms. Examination today reveals no evidence of recurrence disease in either breast. Her most recent mammogram dated 10/14/2022 revealed no suspicious findings in either breast (BiRADS 2) . An annual screening mammogram is scheduled for 10/21/2023. She will follow-up in 1 year, sooner p.r.n. Coding Level of Care Code Est Pt Level 3 (90435) Diagnoses History of left breast cancer Z85.3
[2023-07-09 09:11] VITALS: BP 130/82; BMI 31.7
== END 2023-07-09 09:24 | disposition home or self-care (01) ==
PROVIDERS: PCP Internal Medicine; Visit Provider Surgery
DX: Z85.3 Personal history of malignant neoplasm of breast (principal)
CPT/HCPCS: 99213

== ENCOUNTER → 2023-07-09 09:00 | Outpatient (BNVA) | payer MEDICARE, SELFPAY | PROVIDERS: PCP Internal Medicine; Visit Provider Surgery | DX: Z85.3 Personal history of malignant neoplasm of breast (principal) | CPT/HCPCS: 99212 ==

== ENCOUNTER 2023-08-28 11:15 | Outpatient (REF) | payer MEDICARE, SELFPAY ==
[2023-08-28 13:08] LABS: TSH reflex Free T4 0.93 uIU/mL (0.32-4.0)
== END 2023-08-28 11:16 | disposition home or self-care (01) ==
LOC: HO.LNP 11:15
PROVIDERS: Visit Provider Internal Medicine
DX: E03.9 Hypothyroidism, unspecified (principal)
CPT/HCPCS: 84443

== ENCOUNTER 2023-10-21 08:08 | Outpatient (REF) | payer MEDICARE, SELFPAY ==
--- NOTE | ~2023-10-21 | MM_ITS ---
EXAMINATION: MM SCREENING DIGITAL BREAST TOMOSYNTHESIS, BILATERAL CLINICAL INFORMATION: Screening. Asymptomatic. Patient is status post left breast cancer treatment in 2017. COMPARISON: Mammography: This study is compared with prior exams dating back to 2020. TECHNIQUE: Digital breast tomosynthesis is performed in both the craniocaudal and mediolateral oblique views along with computer-aided detection (CAD). Synthesized 2D images are generated from the tomosynthesis. FINDINGS: There are scattered areas of fibroglandular density (ACR BI-RADS breast composition Category b). There are no significant masses, abnormal calcifications, or other abnormalities. Postsurgical changes are present in the upper outer quadrant of the left breast. MM/MM tomosynthesis screening BI IMPRESSION: No mammographic evidence of malignancy. ASSESSMENT: BI-RADS BI-RADS 2 - Benign Findings RECOMMENDATION: Routine annual mammography screening. 1 year F/U This examination should not preclude the clinical evaluation of a suspicious palpable abnormality. This patient's information was entered into a reminder system with a target due date for their next mammogram.
== END 2023-10-21 08:09 | disposition home or self-care (01) ==
LOC: HO.MAMMO 08:08
PROVIDERS: Absent Provider Internal Medicine Medical Oncology; PCP Internal Medicine; Visit Provider Internal Medicine
DX: Z12.31 Encounter for screening mammogram for malignant neoplasm of breast (principal)
CPT/HCPCS: 77063; 77067

== ENCOUNTER → 2023-10-21 08:15 | Outpatient (BNV) | payer MEDICARE, SELFPAY | PROVIDERS: Absent Provider Internal Medicine Medical Oncology; PCP Internal Medicine; Visit Provider Radiology Diagnostic Radiology | DX: Z12.31 Encounter for screening mammogram for malignant neoplasm of breast (principal) | CPT/HCPCS: 77063; 77067 ==

== ENCOUNTER 2024-02-05 10:42 | Outpatient (REF) | payer MEDICARE, SELFPAY ==
[2024-02-05 10:45] LABS: MANUAL DIFF FLAG NO
[2024-02-05 11:14] LABS: Appearance Urine Cloudy; Color Urine Yellow; Glucose Urine UA Negative (Negative); Leukocyte Esterase Urine Large (3+) (Negative); Nitrite Urine Negative (Negative); UMIC TRIGGER UACC YES; Urine Blood Trace (Negative); Urine Ketones Negative (Negative); Urine Protein Negative (Neg-Trace)
[2024-02-05 11:23] LABS: Bacteria Urine 4+ (None Seen); Estimated Average Glucose 108 mg/dL; Hemoglobin A1c % 5.4 % (<6.0); Hyaline Casts Urine 0-2 /LPF (0-2); RBC Urine 0-2 /HPF (0-2); Squamous Epithelial Cell Urine 0-2 /HPF (0-2); UACC Culture Trigger YES; WBC Urine >50 /HPF (0-5)
[2024-02-05 11:36] LABS: Basophils Absolute Auto 0.1 X10*3/uL (0.0-0.2); Basophils Percent Auto 0.9 % (0-2); Eosinophils Absolute Auto 0.3 X10*3/uL (0.0-0.4); Eosinophils Percent Auto 6.1 % (0-4); Hematocrit 42.8 % (37.0-47.0); Hemoglobin 14.6 g/dl (12.0-16.0); Imm Gran Abs Auto 0.02 X10*3/uL (0.00-0.03); Imm Gran Pct Auto 0.4 % (0.0-0.4); Lymphocytes Absolute Auto 1.6 X10*3/uL (1.2-4.9); Lymphocytes Percent Auto 28.7 % (20-40); Mean Corpuscular HGB Conc 34.1 g/dl (31.0-35.0); Mean Corpuscular Hemoglobin 30.3 pg (27.0-33.0); Mean Corpuscular Volume 88.8 fL (80.0-98.0); Mean Platelet Volume 10.4 fL (9.4-12.3); Monocytes Absolute Auto 0.5 X10*3/uL (0.1-1.2); Monocytes Percent Auto 9.7 % (2-11); Neutrophils Percent Auto 54.2 % (45-73); Platelet Count 265 X10*3/uL (160-400); Red Blood Count 4.82 X10*6/uL (4.20-5.50); Red Cell Distribution Width 12.4 % (11.0-16.0); White Blood Count 5.6 X10*3/uL (4.8-10.8)
[2024-02-05 11:50] LABS: Alanine Aminotransferase 23 U/L (0-31); Albumin Level 3.7 g/dL (3.5-5.0); Alkaline Phosphatase 37 U/L (39-117); Anion Gap 13 (12-20); Aspartate Amino Transferase 22 U/L (5-31); Bilirubin Total 0.7 mg/dL (0.0-1.0); Blood Urea Nitrogen 16 mg/dL (9-16); Calcium 9.4 mg/dL (8.4-10.2); Carbon Dioxide 26 mmol/L (22-29); Chloride 108 mmol/L (96-108); Cholesterol 175 mg/dL (<200); Estimated Glomerular Filt Rate 58; Glucose Fasting 107 mg/dL (60-99); HDL Cholesterol 61 mg/dL (>40); LDL Cholesterol Calculated 79 mg/dL (<100); Potassium 3.9 mmol/L (3.3-5.1); Sodium 143 mmol/L (135-145); Total Protein 6.3 g/dL (6.5-8.0); Triglycerides 179 mg/dL (<150)
[2024-02-05 11:54] LABS: TSH reflex Free T4 0.49 uIU/mL (0.32-4.0)
[2024-02-05 12:35] LABS: Creatinine Urine 178.67 mg/dL; Microalbum/Creatinine Ratio Ur 10.6 ug/mg cr (<30)
== END 2024-02-05 10:43 | disposition home or self-care (01) ==
LOC: HO.LNP 10:42
PROVIDERS: Visit Provider Internal Medicine
DX: Z00.00 Encounter for general adult medical examination without abnormal findings (principal); I10 Essential (primary) hypertension; E03.9 Hypothyroidism, unspecified; R73.09 Other abnormal glucose
CPT/HCPCS: 80053; 80061; 81001; 82043; 82570; 83036; 84443; 85025; 87086; 87088; 87186

== ENCOUNTER 2024-02-22 11:54 | Outpatient (REF) | payer MEDICARE, SELFPAY ==
[2024-02-22 12:12] LABS: Appearance Urine Clear; Color Urine Yellow; Glucose Urine UA Negative (Negative); Leukocyte Esterase Urine Trace (Negative); Nitrite Urine Negative (Negative); Specific Gravity - Urine 1.015 (1.005-1.025); UMIC TRIGGER UACC YES; Urine Blood Negative (Negative); Urine Ketones Negative (Negative); Urine Protein Negative (Neg-Trace)
[2024-02-22 12:17] LABS: Bacteria Urine None Seen (None Seen); Hyaline Casts Urine 0-2 /LPF (0-2); RBC Urine 0-2 /HPF (0-2); Squamous Epithelial Cell Urine 0-2 /HPF (0-2); WBC Urine 0-5 /HPF (0-5)
== END 2024-02-22 11:55 | disposition home or self-care (01) ==
LOC: HO.LNP 11:54
PROVIDERS: Visit Provider Internal Medicine
DX: Z48.89 Encounter for other specified surgical aftercare (principal)
CPT/HCPCS: 81001; 81003

== ENCOUNTER → 2024-02-23 10:23 | Outpatient (REF) | payer MEDICARE, SELFPAY ==
--- NOTE | 2024-02-23 10:28 | CA_ITS ---
Acquisition Time: 2024-02-23 10:24:53 Total Exercise Time: 00:03:29 Test Indications: CP Medications: LEVOTHYROXINE GABAPENTIN AMLODIPINE IRBESARTAN/HCTZ Protocol: MAHIN Max HR: 193 BPM 133% of Pred: 145 BPM Max BP: 166/080 mmHG Max Work Load: 4.6 METS Exercise stress test exercise 3 min 29 sec of Mahin protocol stage one (terminated to to HR) approximately 111% MPHR (artifact noted throughout test), with moderate SOB, no chest discofmort, with isolated PVC noted through artifact, with normotensive response to exercise, without EKG changes for ischemia. Test reviewed with Dr Huerta. Recommend if further testing needed pharmacological stress test with nuclear imaging. Referred By: Sonny Llanes Overread By: Farnaz Howe
== END ==
LOC: HO.CARD 10:23
PROVIDERS: PCP Internal Medicine; Visit Provider Internal Medicine
DX: R07.89 Other chest pain (principal)
CPT/HCPCS: 93017

== ENCOUNTER → 2024-02-23 10:28 | Outpatient (BNV) | payer MEDICARE, SELFPAY | PROVIDERS: PCP Internal Medicine; Visit Provider Nurse Practitioner | DX: R06.02 Shortness of breath (principal); I49.3 Ventricular premature depolarization | CPT/HCPCS: 93016; 93018 ==

== ENCOUNTER 2024-02-26 10:14 | Outpatient (AMB) | payer MEDICARE, SELFPAY ==
--- NOTE | 2024-02-26 10:16 | A.OFFVIS_ITS ---
Intake Visit Reasons: OV- Right Knee pain, last inj 05/02/22 Intake Note: Renetta is a 73 year old female who presents today for a follow up visit of her right knee OA. Last right knee cortisone injection was on 05/02/2022. Patient reports that this last injection was helpful and she is interested in repeat in repeat injection if the doctor reccomends. Patient reports that she has intermittent pain of the right knee, some days are better than others. She takes occasionally ibuprofen with good releif. Allergies oxycodone Allergy (Unknown, Verified 07/09/23 09:07) diarrhea/upset stomach ENVIRONMENTAL Allergy (Intermediate, Uncoded 07/09/23 09:07) HAYFEVER SYMPTOMS HPI HPI OV- Right Knee pain, last inj 05/02/22: Details: Renetta is a 73 year old female who presents today for a follow up visit of her right knee OA. Last right knee cortisone injection was on 05/02/2022. Patient reports that this last injection was helpful and she is interested in repeat in repeat injection if the doctor recommends. Patient reports that she has intermittent pain of the right knee, some days are better than others. She takes occasionally ibuprofen with good relief. [facility] Medical History Murmur Allergy desensitization therapy Hiatal hernia Hypothyroidism Migraine GERD (gastroesophageal reflux disease) Hypertension History of left breast cancer Surgical History Hx of colonoscopy History of esophagogastroduodenoscopy (EGD) History of bunionectomy of left great toe Status post left breast lumpectomy History of tonsillectomy History of cholecystectomy H/O hysterectomy for benign disease H/O oophorectomy Family History Father Hypertension Mother Hypertension Sister Cancer of unknown origin Paternal Grandfather Liver cancer Social History 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 care 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 a 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 at home: Yes ( has lung cancer Stage IV) Patient Tobacco Use Status: Never used Tobacco Current occupational status: retired Physical Exam Const General: no acute distress, alert and awake Orientation/consciousness: patient oriented x3 HEENT Head: Yes normocephalic and Yes atraumatic Eyes EOM: EOMs intact bilaterally Resp Effort & Inspection: normal respiratory effort and able to speak in complete sentences Cardio Jugular venous distension: no JVD Skin General skin exam: turgor normal Rashes: no rashes Neuro General: patient oriented x3 Extrem Other: Right Knee: mild-moderate valgus deformity minimal ttp posterolaterally Psych Appearance: grossly normal Affect: normal affect Attitude: cooperative Assessment & Plan Assessment & Plan (1) Osteoarthritis of right knee: Code(s): M17.11 - Unilateral primary osteoarthritis, right knee Category: Medical Plan: 73-year-old woman with osteoarthritis, valgus alignment, of the right knee. No really having that much discomfort now and I do not think an injection would make that any better. I think the injection should be reserved for when her pain is worse. I discussed this with her. She agrees and will follow up with me accordingly. Continue activity as tolerated. No additional orthopedic intervention warranted at this time. Coding Level of Care Code Est Pt Level 3 (07742) Diagnoses Osteoarthritis of right knee M17.11
== END 2024-02-26 10:54 | disposition home or self-care (01) ==
PROVIDERS: PCP Internal Medicine; Visit Provider Orthopaedic Surgery
DX: M17.11 Unilateral primary osteoarthritis, right knee (principal)
CPT/HCPCS: 99213

== ENCOUNTER → 2024-02-26 10:14 | Outpatient (BNVA) | payer MEDICARE, SELFPAY | PROVIDERS: PCP Internal Medicine; Visit Provider Orthopaedic Surgery | DX: M17.11 Unilateral primary osteoarthritis, right knee (principal) | CPT/HCPCS: 99212 ==

== ENCOUNTER 2024-07-05 08:50 | Outpatient (AMB) | payer MEDICARE, SELFPAY ==
--- NOTE | 2024-07-05 08:52 | A.OFFVIS_ITS ---
Vital Signs 07/05/24 08:58 Height 5 ft 5 in Weight 198 lb BMI 32.9 BP 146/72 H Blood Pressure Location Rt brachial Position Sitting Pulse 94 Intake Visit Reasons: Yearly Breast Exam Intake Note: Patient is seen in office for yearly breast exam. Pt c/o: no concerns. Denies breast rash, nipple discharge. mm sched:10/24/24 Traveling Passenger Agent Required: No Accompanied by: Self / Same As Patient Allergies oxycodone Allergy (Unknown, Verified 07/05/24 08:58) diarrhea/upset stomach ENVIRONMENTAL Allergy (Intermediate, Uncoded 07/05/24 08:58) HAYFEVER SYMPTOMS Medication List - Last Reconciled 07/05/24 by Juan Carlos Sandoval, RN amlodipine 5 mg PO DAILY calcium carbonate 650 mg PO DAILY cetirizine (Zyrtec) 10 mg PO DAILY PRN cholecalciferol (vitamin D3) 25 mcg PO DAILY gabapentin 100 mg PO DAILY irbesartan-hydrochlorothiazide 300-12.5 mg 1 tab PO levothyroxine 88 mcg PO DAILY nsvpptwl-uww-btzh-FA-vit K-lut 8 mg iron-400 mcg-50 mcg (Centrum Silver Women) 1 tab PO DAILY sumatriptan succinate (Imitrex) 100 mg PO Q2-4H PRN HPI Comments Details: 73-year-old female patient for patient of Dr. Simeon returning for a breast cancer examination. She presented on July 2016 with an abnormal mammogram which revealed a rounded heterogeneous lesion at the 1 o'clock position, 3 cm from the nipple measuring 5 x 5 mm. She subsequent underwent a left breast lumpectomy with needle localization and left axillary sentinel node biopsy on 09/10/2016. 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 She underwent radiation therapy at [facility] which was completed on 11/14/2016. She was subsequently started on anastrozole and followed by Dr. Sanchez. She was treated with anastrozole for [address] Sanchez. Her last breast MRI of 06/05/2022 revealed benign findings bilaterally (BI-RADS 2 bilaterally). Her daughter was diagnosed with a low suspicion finding on mammogram and is awaiting a six-month follow-up study. The patient's last mammogram performed on 10/21/2023 revealed no mammographic evidence of malignancy ( BI-RADS 2 ). Annual screening mammography is recommended in 1 year. She feels well and denies any ongoing breast symptoms. [facility] Medical History Murmur Allergy desensitization therapy Hiatal hernia Hypothyroidism Migraine GERD (gastroesophageal reflux disease) Hypertension History of left breast cancer Surgical History Hx of colonoscopy History of esophagogastroduodenoscopy (EGD) History of bunionectomy of left great toe Status post left breast lumpectomy History of tonsillectomy History of cholecystectomy H/O hysterectomy for benign disease H/O oophorectomy Family History Father Hypertension Mother Hypertension Sister Cancer of unknown origin Paternal Grandfather Liver cancer Social History Are you a primary manager care management to a 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 at home: Yes ( has lung cancer Stage IV) Patient Tobacco Use Status: Never used Tobacco Current occupational status: retired Review of Systems Const All systems reviewed & are unremarkable except as noted in HPI and below Denies anorexia, Denies chills and Denies fever(s) Card Denies chest pain, Denies palpitations and Denies dyspnea Resp Denies chest congestion, Denies cough, Denies hemoptysis and Denies dyspnea Denies nipple discharge Skin/Breast Denies breast swelling, Denies breast skin changes, Denies breast pain, Denies breast mass, Denies change in breast shape and Denies nipple discharge Psych Denies anxiety Endo Denies palpitations Physical Exam Const General: cooperative, comfortable, no acute distress and well developed Nutritional Appearance: well nourished Orientation/consciousness: patient oriented x3 Limitations: no limitations Chest Other: Left breast: No skin change, no nipple retraction, no nipple discharge, no palpable mass, no enlarged lymph nodes. Well-healed incision in the left upper outer quadrant. Right breast: No skin change, no nipple retraction, no nipple discharge, no palpable mass, no enlarged lymph nodes Skin General skin exam: no rashes or lesions noted Neuro Other: Mobility Assessment: 1. 3 meter assessment time (seconds) 5 2. Gait observations: Normal balance and gait General: patient oriented x3 Extrem General: Yes no clubbing, cyanosis or edema Assessment & Plan Assessment & Plan (1) History of left breast cancer: Code(s): Z85.3 - Personal history of malignant neoplasm of breast Category: Medical Plan: Patient returns for a follow-up breast examination , 8 years after left breast carcinoma surgery. She feels well and denies any ongoing breast symptoms. Examination today reveals no evidence of recurrence disease in either breast. Her most recent mammogram dated 10/21/2023 revealed no mammographic evidence of malignancy either breast (BiRADS 2) . An annual screening mammogram is scheduled for 10/24/2024. She will follow-up in 1 year, sooner p.r.n. Orders: Orders MM screening mammo BI 10/24/24 Z85.3 - Personal history of malignant neoplasm of breast Coding Level of Care Code Est Pt Level 3 (66896) Diagnoses History of left breast cancer Z85.3
[2024-07-05 08:58] VITALS: BP 146/72; PULSE 94; BMI 32.9
== END 2024-07-05 09:13 | disposition home or self-care (01) ==
PROVIDERS: PCP Internal Medicine; Visit Provider Surgery
DX: Z85.3 Personal history of malignant neoplasm of breast (principal)
CPT/HCPCS: 99213

== ENCOUNTER → 2024-07-05 08:50 | Outpatient (BNVA) | payer MEDICARE, SELFPAY | PROVIDERS: PCP Internal Medicine; Visit Provider Surgery | DX: Z12.39 Encounter for other screening for malignant neoplasm of breast (principal); Z85.3 Personal history of malignant neoplasm of breast | CPT/HCPCS: 99212 ==

== ENCOUNTER 2024-08-12 11:30 | Outpatient (REF) | payer MEDICARE, SELFPAY ==
[2024-08-12 12:52] LABS: TSH reflex Free T4 0.91 uIU/mL (0.32-4.0)
== END 2024-08-12 11:31 | disposition home or self-care (01) ==
LOC: HO.LNP 11:30
PROVIDERS: Visit Provider Internal Medicine
DX: E03.9 Hypothyroidism, unspecified (principal)
CPT/HCPCS: 84443

== ENCOUNTER 2024-10-24 08:03 | Outpatient (REF) | payer MEDICARE, SELFPAY ==
--- OUTSIDE RECORDS SUMMARY | 2024-10-24 08:08 | XMS_ITS | Patient Health Record ---
Author Organization Sonny Llanes MD Address [address] [place] [phone] Care Team Providers Care Dental Hygienist Name Role Phone Sonny Llanes Primary Care Provider Allergies No Known Allergies Results Component Value Reference Range Notes Complete Blood Count Auto Di ff Reviewed date:02/05/2024 03:48:43 PM Interpretation: Performing Lab:[facility], [address] [place] [phone] Notes/Report: White Blood Count 5.6 4.8-10.8 X10*3/uL Red Blood Count 4.82 4.20-5.50 X10*6/uL Hemoglobin 14.6 12.0-16.0 g/dl Hematocrit 42.8 37.0-47.0 % Mean Corpuscular Volume 88.8 80.0-98.0 fL Mean Corpuscular Hemoglobin 30.3 27.0-33.0 pg Mean Corpuscular HGB Conc 34.1 31.0-35.0 g/dl Red Cell Distribution Width 12.4 11.0-16.0 % Platelet Count 265 160-400 X10*3/uL Mean Platelet Volume 10.4 9.4-12.3 fL Neutrophils Percent Auto 54.2 45-73 % Imm Gran Pct Auto 0.4 0.0-0.4 % Lymphocytes Percent Auto 28.7 20-40 % Monocytes Percent Auto 9.7 2-11 % Eosinophils Percent Auto 6.1 0-4 % Basophils Percent Auto 0.9 0-2 % NRBC Pct Auto 0.0 0.0-0.2 /100WBC Neutrophils Absolute Auto 3.0 2.0-8.3 x10*3/u L Imm Gran Abs Auto 0.02 0.00-0.03 X10*3/uL Lymphocytes Absolute Auto 1.6 1.2-4.9 X10*3/u L Monocytes Absolute Auto 0.5 0.1-1.2 X10*3/uL Eosinophils Absolute Auto 0.3 0.0-0.4 X10*3/u L Basophils Absolute Auto 0.1 0.0-0.2 X10*3/uL NRBC Abs Auto 0.000 0.0-0.012 X10*3/uL Comprehensive Davis. Panel Fa st Reviewed date:02/05/2024 03:49:32 PM Interpretation: Performing Lab:[facility], [address] [place] [phone] Notes/Report: Sodium 143 135-145 mmol/L Potassium 3.9 3.3-5.1 mmol/L Chloride 108 96-108 mmol/L Carbon Dioxide 26 22-29 mmol/L Anion Gap 13 12-20 Blood Urea Nitrogen 16 9-16 mg/dL Creatinine 0.94 0.5-1.4 mg/dL Estimated Glomerular Filt Rate 58 NOTE: For -Cypriot individuals, multiply the result by 1.210. Chronic Kidney Disease: Estimated GFR < 60 mL/min/1.73m2 Severe Kidney Disease: Estimated GFR < 15 mL/min/1.73m2 Glucose Fasting 107 60-99 mg/dL A fasting glucose from 100-125 mg/dl is considered impaired (pre-diabetes). Calcium 9.4 8.4-10.2 mg/dL Bilirubin Total 0.7 0.0-1.0 mg/dL Aspartate Amino Transferase 22 5-31 U/L Alanine Aminotransferase 23 0-31 U/L Total Protein 6.3 6.5-8.0 g/dL Albumin Level 3.7 3.5-5.0 g/dL Alkaline Phosphatase 37 39-117 U/L Lipid Panel Reviewed date:02/05/2024 03:48:52 PM Interpretation: Performing Lab:[address] [phone] Notes/Report: Triglycerides 179 <150 mg/dL Desirable Triglyceride: less than 150 mg/dL Borderline High Triglyceride 150-199 mg/dL High Triglyceride: 200-499 mg/dL Very High Triglyceride: greater than or equal to 5OO mg/dL Cholesterol 175 <200 mg/dL Desirable Cholesterol: less than 200 mg/dL Borderline High Cholesterol: 200-239 mg/dL High Cholesterol: greater than 239 mg/dL LDL Cholesterol Calculated 79 <100 mg/dL Desirable LDL: less than 100 mg/dL Near Optimal/Above Optimal LDL: 110-129 mg/dL Borderline High LDL: 130-159 mg/dL High LDL: 160-189 mg/dL Very High LDL: greater than or equal to 190 mg/dL HDL Cholesterol 61 >40 mg/dL Desirable HDL: greater than 40 mg/dL Note: This HDL assay may give artificially low results in patients with liver disease. TSH reflex Free T4 Reviewed date:02/05/2024 03:47:18 PM Interpretation: Performing Lab:[address] [phone] Notes/Report: TSH reflex Free T4 0.49 0.32-4.0 uIU/mL Microalbumin, Random Reviewed date:02/05/2024 03:52:10 PM Interpretation: Performing Lab:[address] [phone] Notes/Report: Creatinine Urine 178.67 Microalbumin Urine 19.0 Microalbum/Creatinine Ratio Ur 10.6 <30 ug/mg cr Albumin/Creatinine Ratio Reference Ranges: Normal: < 30 ug/mg creatinine Microalbuminuria: 30 - 300 ug/mg creatinine Clinical Albuminuria: > 300 ug/mg creatinine Hemoglobin A1c Reviewed date:02/05/2024 03:50:32 PM Interpretation: Performing Lab:[facility], [address] [place] [phone] Notes/Report: Hemoglobin A1c % 5.4 <6.0 % Hemoglobin A1C Reference Range Adults: 4.8 - 6.0 % Non diabetic: < 6.0 % Goal: < 7.0 % Additional Action Suggested: > 8.0 % Note: Hemoglobin A1c results are invalid for patients with abnormal amounts of HbF. Blood transfusions may impact the HbA1c concentration in the patient sample. Estimated Average Glucose 108 eAG = Estimated average glucose which is %A1C expressed as average glucose, using the formula of the [id number] Average Glucose study (ADAG), Diabetes Care, Vol.31,#8, 2007 UA ClnCatch+Micro w/rflx Cul t Reviewed date:02/07/2024 05:02:30 PM Interpretation: Performing Lab:[facility], [address] [place] [phone] Notes/Report: Urine, Clean Catch Color Urine Yellow Appearance Urine Cloudy PH 6.0 5.0-9.0 Glucose Urine UA Negative Negative mg/dL Urine Blood Trace Negative Specific [place] - Urine 1.020 1.005-1.025 Urine Protein Negative Neg-Trace mg/dL Urine Ketones Negative Negative mg/dL Nitrite Urine Negative Negative Leukocyte Esterase Urine Large (3+) Negative RBC Urine 0-2 0-2 /HPF WBC Urine >50 0-5 /HPF Squamous Epithelial Cell Urine 0-2 0-2 /HPF Bacteria Urine 4+ None Seen Hyaline Casts Urine 0-2 0-2 /LPF UA ClnCatch+Micro w/rflx Cul t Reviewed date:02/22/2024 12:29:26 PM Interpretation: Performing Lab:[facility], [address] [place] [phone] Notes/Report: Urine, Clean Catch Color Urine Yellow Appearance Urine Clear PH 6.0 5.0-9.0 Glucose Urine UA Negative Negative mg/dL Urine Blood Negative Negative Specific [place] - Urine 1.015 1.005-1.025 Urine Protein Negative Neg-Trace mg/dL Urine Ketones Negative Negative mg/dL Nitrite Urine Negative Negative Leukocyte Esterase Urine Trace Negative RBC Urine 0-2 0-2 /HPF WBC Urine 0-5 0-5 /HPF Squamous Epithelial Cell Urine 0-2 0-2 /HPF Bacteria Urine None Seen None Seen Hyaline Casts Urine 0-2 0-2 /LPF TSH reflex Free T4 Reviewed date:08/12/2024 12:55:39 PM Interpretation: Performing Lab:[facility], [address] [place] [phone] Notes/Report: TSH reflex Free T4 0.91 0.32-4.0 uIU/mL Jimena Treviño Reviewed date:02/05/2024 03:45:51 PM Interpretation: Performing Lab:[facility], [address] [place] [phone] Notes/Report: Hold Hudson See Note Specimen held untested for 24 hours; Call to request Chemistry testing. Urine Culture Reviewed date:02/08/2024 12:48:41 PM Interpretation: Performing Lab:[facility], [address] [place] [phone] Notes/Report: O:KLEPNE Klebsiella pneumoniae Urine Culture Quant Urine Culture > 100,000 cfu/mL Ampicillin 16 Cefazolin <=4 Ceftriaxone <=0.25 Gentamicin <=1 Levofloxacin <=0.12 Nitrofurantoin <=16 Trimethoprim/Sulfamethoxaz ole <=20 Jimena Hudson Reviewed date:08/12/2024 12:23:17 PM Interpretation: Performing Lab:[facility], [address] [place] [phone] Notes/Report: Jimena Treviño See Note Specimen held untested for 24 hours; Call to request Chemistry testing. Reason For Referral No Information Medications Medication SIG (Take, Route, Frequency, Duration) Notes Start Date End Date Status Gabapentin 100 MG 1 capsule Orally Onc e a day for 30 day(s) Active traMADol HCl 50 MG 1 tablet as needed Orally 3 times a day as needed for 10 days 10/01/2021 Not-Taking Calcium 500 MG 1 tablet with meals Orally Twice a day for 30 day(s) Active Imitrex 100 MG 1 tablet Orally once a day for 30 days Not-Taking Centrum Silver Ultra Womens Orally Active Ciclopirox 0.77% as directed applied topically twice a day for 14 days 02/07/2021 Not-Taking Vitamin D 1000 UNIT 1 tablet Orally Once a day Active ProAir RespiClick 108 (90 Base) MCG/ACT 1 puff as needed Inhalation every 4 hrs for 90 days 02/16/2017 Not-Taking Anastrozole 1 MG 1 tablet Orally Once a day Not-Taking Ativan 0.5 MG 1 tablet Orally as needed for 10 days 08/18/2022 Not-Taking dexAMETHasone 4 MG 1 tablet Orally Thre e times a day for 7 days 10/01/2021 Not-Takin g traMADol HCl 50 MG 1 tablet as needed Orally 3 times a day as needed for 10 days 10/01/2021 Not-Taking ZyrTEC 10mg Once a day Not-Kyree ing amLODIPine Besylate 5 MG TAKE 1 TABLET B Y MOUTH EVERY DAY Active Levothyroxine Sodium 88 MCG take one by mouth every morning Orally Once a day Active Irbesartan-hydroCHLOROthia zide 300-12.5 MG 1 tablet Orally Once a day Active Immunizations Vaccine Route Administration Date Status Comme nts Flu Vaccine IM Intramuscular 02/24/2011 Administered Shingles IM Intramuscular 09/01/2011 Administered Flu Vaccine IM Intramuscular 03/15/2012 Administered Flu Vaccine IM Intramuscular 03/28/2013 Administered PPSV23 (Pnemovax) IM Intramuscular 10/20/2013 Administered Flu Vaccine Unknown 02/24/2014 Administered [facility] Prevnar 13 IM Intramuscular 11/09/2014 Administered TDaP IM Intramuscular 11/09/2014 Administered Fluarix Quadrivalent IM Intramuscular 02/20/2015 Administe red Fluarix Quadrivalent IM Intramuscular 02/12/2016 Administe red Fluarix Quadrivalent IM Intramuscular 04/09/2017 Administe red Fluarix Quadrivalent IM Intramuscular 02/08/2018 Administe red PPSV23 (Pnemovax) IM Intramuscular 01/03/2019 Administered Fluarix Quadrivalent IM Intramuscular 02/15/2019 Administe red Influenza High Dose Unknown 02/07/2020 [address] [facility] Covid Vaccine Unknown 07/21/2020 Administered Moderna Covid Vaccine Unknown 08/18/2020 Administered Moderna Influenza High Dose IM Intramuscular 02/01/2021 Administer ed SARS-COV-2 Moderna Unknown 03/22/2021 Administered SARS-COV-2 Moderna Unknown 09/05/2021 Administered Influenza High Dose IM Intramuscular 02/03/2022 Administer ed Influenza High Dose IM Intramuscular 02/05/2024 Administer ed Social History Tobacco Use: Social History Observation Description Date Details (start date - stop date) Former Smoker NA - NA Tobacco Use/Smoking Question Answer Notes Patient is a former smoker How long has it been since y ou last smoked? > 10 years Additional Findings: Tobacco Non-User Fo rmer smoker, currently using no form of tobacco Alcohol Screen Question Answer Notes Did you have a drink contain ing alcohol in the past year? Yes How often did you have a dri nk containing alcohol in the past year? Monthly or less (1 point) How many drinks did you have on a typical day when you were drinking in the past year? 1 or 2 drinks (0 point) How often did you have 6 or more drinks on one occasion in the past year? Never (0 point) Points 1 Interpretation Negative Problems Problem Type SNOMED Code ICD Code Onset Dates Problem Status W/U Status Risk Notes Problem 86274194 Lymphocytosis (D72.820) Active confirmed Problem 626701340 Tubular adenoma (D36.9) Active confirmed Problem 615867547 Other specified menopausal and perimenopausal disorders (N95.8) Active confirmed Problem Disorder of lumbar disc (676429282) Lumbar disc disease (M51.9) Active confirmed Problem 612607212 Gastroesophageal reflux disease without esophagitis (K21.9) Active confirmed Problem 47678428 Essential hypertension (I10) Active confirmed Problem 699256533 Acquired hypothyroidism (E03.9) Active confirmed Problem 2067787 Prediabetes (R73.09) Active confirmed Problem 879360648 History of breas t cancer (Z85.3) Active confirmed Problem 2336705 Migraine with au ra and without status migrainosus, not intractable (G43.109) Active confirmed Problem 547671737 Lymphocele (I89.8) Active confirmed Problem Grief (902333525) Grief (F43.20) Active confirmed Problem 657611706 Arthritis of kne e (M17.10) Active confirmed Problem 5637488640381 Wrist arthritis (M19.039) Active confirmed Problem 384331503 Age-related incipient cataract, unspecified laterality (H25.099) Active confirmed Vital Signs Blood pressure diastolic 80 mm Hg 08/15/2024 juan jose ght is up 3 pounds since 02-15-24 Height 65 in 08/15/2024 weight is up 3 pounds since 02-15-24 Blood pressure systolic 142 mm Hg 08/15/2024 weig ht is up 3 pounds since 02-15-24 Weight 200 lbs 08/15/2024 weight is up 3 pounds since 02-15-24 BMI 33.28 kg/m2 08/15/2024 weight is up 3 pounds since 02-15-24 Encounters Encounter Location Date Provider Diagnosis Sonny Llanes MD [address] [place] [address] [id number] 02/05/2024 Sonny Llanes Annual physical exam Z00.00 ; Encounter for immunization Z23 ; Essential hypertension I10 ; Acquired hypothyroidism E03.9 and Prediabetes R73.09 Sonny Llanes MD [address] [place] [id number] 02/22/2024 Sonny Llanes After-treatment Z51. 89 Sonny Llanes MD [address] [place] [address] [id number] 08/12/2024 Sonny Llanes Acquired hypothyroidism E03.9 Sonny Llanes MD [address] [place] [id number] 02/15/2024 Sonny Llanes Atypical chest pain R07.89 ; Annual physical exam Z00.00 ; Acute UTI N39.0 ; Essential hypertension I10 ; Acquired hypothyroidism E03.9 ; Prediabetes R73.09 and Depression screening Z13.31 Sonny Llanes MD [address] [place] [address] [id number] 08/15/2024 Sonny Llanes Essential hypertensi on I10 and Acquired hypothyroidism E03.9 Sonny Llanes MD [address] [place] [address] [id number] 02/08/2024 Sonny Llanes MD [address] [place] [address] [id number] 02/15/2024 Sonny Llanes MD [address] [place] [address] [id number] 04/01/2024 Sonny Llanes Acquired hypothyroidism E03.9 Sonny Llanes MD [address] [place] [address] [id number] 04/05/2024 Sonny Llanes Acquired hypothyroidism E03.9 Sonny Llanes MD [address] [place] [address] [id number] 06/07/2024 Sonny Llanes Essential hypertensi on I10 Assessments Encounter Date Diagnosis (ICD Code) Assessment Notes Treatment Notes Treatment Clinical Notes Section Notes 02/05/2024 Annual physical exam (ICD-10 - Z00.00) 02/05/2024 Encounter for immunization (ICD-10 - Z23) 08/12/2024 Acquired hypothyroidism (ICD-10 - E03.9) 02/15/2024 Atypical chest pain (ICD-10 - R07.89) seems very unlikely to be cardiac. but will get stress test to be certain/ STRESS TEST SCHEDULED FOR 02/23/24 AT 10:30AM 02/15/2024 Annual physical exam (ICD-10 - Z00.00) labs reviewed and discussed with patient 08/15/2024 Essential hypertension (ICD-10 - I10) doing well on meds, will continue current regiment 04/01/2024 Acquired hypothyroidism (ICD-10 - E03.9) 04/05/2024 Acquired hypothyroidism (ICD-10 - E03.9) 06/07/2024 Essential hypertension (ICD-10 - I10) 02/05/2024 Essential hypertension (ICD-10 - I10) 02/22/2024 After-treatment (ICD-10 - Z51.89) 02/15/2024 Acute UTI (ICD-10 - N39.0) pending labs 08/15/2024 Acquired hypothyroidism (ICD-10 - E03.9) good tsh.will continue current regiment 02/05/2024 Acquired hypothyroidism (ICD-10 - E03.9) 02/15/2024 Essential hypertension (ICD-10 - I10) stable, at goal, will contnue current regiment 02/05/2024 Prediabetes (ICD-10 - R73.09) 02/15/2024 Acquired hypothyroidism (ICD-10 - E03.9) stable, at goal, will continue current regiment 02/15/2024 Prediabetes (ICD-10 - R73.09) stable, no need for medication at this time 02/15/2024 Depression screening (ICD-10 - Z13.31) negative screen 08/15/2024 Other depression well controlled Plan Of Treatment Pending Test Test Name Order Date Electrocardiogram (EKG) 11/22/2015 Electrocardiogram (EKG) 12/09/2016 Electrocardiogram (EKG) 01/06/2019 BONE DENSITY DEXA 10/14/2012 US ABD 01/13/2022 Stress Test 02/15/2024 US BREAST LEFT 08/21/2016 Next Appt Details Provider Name:Sonny Hartman ier, 02/13/2025 07:30:00 AM, [address], [address], [place], [place], [id number], Provider Name:Sonny Hartman ier, 02/20/2025 08:30:00 AM, [address], [address], [place], [place], [phone], Insurance Providers Payer Name Payer Address Payer Phone Subscriber Number Group Number Insured Name Patient Relationship to Insured Coverage Start Date Coverage End Date [employer] [address] [place], [place] [phone] [id number] Renetta Walters Self - patient is the insured Medical (General) History Medical History History ICD Code herpes zoster 2009 colonoscopy 02/2008 hyperpla stic due in 2017 Dr. Romero; 01/28/18 colonoscopy w/Dr. Romero - repeat 2020: Colonoscopy 2020 due 5yrs ( 2025) ANESTHESIA DIRECTOR, Dr. Brink Endo 01/28/18 - Dr. Romero fecal occult blood 2024 negative Surgical History Surgery Date(Month/Year) cholecystectomy hysterectomy, total with bilateral salpi fallon-oophorectomy (BSO) partial lt breast mastectomy 08/2016
== END 2024-10-24 08:04 | disposition home or self-care (01) ==
LOC: HO.MAMMO 08:03
PROVIDERS: PCP Internal Medicine; Visit Provider Internal Medicine
DX: Z12.31 Encounter for screening mammogram for malignant neoplasm of breast (principal)
CPT/HCPCS: 77063; 77067

== ENCOUNTER → 2024-10-24 08:15 | Outpatient (BNV) | payer MEDICARE, SELFPAY | PROVIDERS: PCP Internal Medicine; Visit Provider Internal Medicine | DX: Z12.31 Encounter for screening mammogram for malignant neoplasm of breast (principal) | CPT/HCPCS: 77063; 77067 ==

== ENCOUNTER 2025-01-16 10:10 | Outpatient (AMB) | payer MEDICARE, SELFPAY ==
--- OUTSIDE RECORDS SUMMARY | 2025-01-16 11:15 | XMS_ITS | Encounter Summary ---
Author Organization [facility] Address [address] [place] [phone] Phone Care Team Providers Care Alternative Dispute Resolution Mediator Name Role Phone Sonny Llanes MD Primary Care Provider Encounter Details Date Type Department Care Team (Latest Contact Info) Description 03/29/2024 Ancillary Orders [facility], X-Ray - [address] [address] Mary Pressley, [facility] [address] [place] [phone] [email or web address] Bilateral primary osteoarthritis of knee (Primary Dx) Social History Tobacco Use Types Packs/Day Years Used Date Smoking Tobacco: Never Assessed Education Answer Date Recorded Are you interested in more education? Not on shahid e 09/19/2022 Are you concerned about learning? Not on file 09/19/2022 No 09/19/2022 No 09/19/2022 Digital Access Answer Date Recorded No 10/18/2022 No 10/18/2022 Reliable internet access at home? Not on file 10/18/2022 Device with a working camera? Not on file Comments Unknown Sex and Gender Information Value Date Recorded Sex Assigned at Not on file Legal Sex Female 10:04 PM EDT Gender Identity Not on file Sexual Orientation Not on file documented as of this encounter Plan of Treatment Not on file documented as of this encounter Results * XR KNEE 1-2 VIEWS (BILATERAL) (03/29/2024 9:58 AM EST) Anatomical Region Laterality Modality Knee Bilateral, Knee Right, Knee Left Computed Radiography 03/29/2024 11:4 7 AM EST Impressions 03/29/2024 11:48 AM EST No acute fracture or dislocation in either knee. Bilateral tricompartmental changes greatest in the lateral femoral tibial compartments Narrative 03/29/2024 11:48 AM EST XR KNEE 1-2 VIEWS (BILATERAL) Referring clinician's provided indication for this examination in [facility]: Pain COMPARISON: None FINDINGS: Left knee: No acute fracture or dislocation. There is mild tricompartmental degenerative changes greatest in the lateral femoral tibial compartment with some mild marginal osteophytes off the femoral condyles and tibial plateau. No significant joint effusion Right knee: No acute fracture or dislocation. Moderate joint space narrowing in the lateral femoral tibial compartment and lesser extent patellofemoral joint and medial femoral tibial compartment with mild marginal osteophytes off the femoral condyles tibial plateau and patella. No significant joint effusion Procedure Note David Chapman MD - 03/29/2024 XR KNEE 1-2 VIEWS (BILATERAL) Referring clinician's provided indication for this examination in Epic:Pain COMPARISON: None FINDINGS: Left knee: No acute fracture or dislocation. There is mildtricompartmental degenerative changes greatest in the lateral femoraltibial compartment with some mild marginal osteophytes off the femoralcondyles and tibial plateau. No significant joint effusion Right knee: No acute fracture or dislocation. Moderate joint spacenarrowing in the lateral femoral tibial compartment and lesser extentpatellofemoral joint and medial femoral tibial compartment with mildmarginal osteophytes off the femoral condyles tibial plateau and patella.No significant joint effusion IMPRESSION: No acute fracture or dislocation in either knee. Bilateral tricompartmental changes greatest in the lateral femoral tibialcompartments us Mary Pressley [facility] IMG XR LOWER EXTREMITY Final Res ult documented in this encounter Visit Diagnoses Diagnosis Bilateral primary osteoarthritis of knee- Primary Bilateral primary osteoarthritis of knee documented in this encounter Care Teams Alternative Dispute Resolution Mediator Relationship Specialty Start Date End Date Sonny Llanes MD [address] [place] [address] [place], [place] [address] PCP - General 05/28/17 documented as of this encounter Additional Source Comments The information contained in this document represents components of the legal health record. It is not the complete legal health record.[facility]
--- OUTSIDE RECORDS SUMMARY | 2025-01-16 11:15 | XMS_ITS | Clinical Summary ---
Author Organization [facility] Address [address] [place] [address] Care Team Providers Care Gear Shaper Name Role Phone Sonny Llanes MD Primary Care Provider [phone] Allergies No known active allergies Medications Medication Sig Dispensed Refills Start Date End Date Status levothyroxine (SYNTHROID, LEVOXYL) tablet 100 mcg Take 1 tablet (100 mcg total) by mouth every morning on an empty stomach. 0 Active valsartan 80 MG TABS 1 tablet, hydrochlorothiazide 12.5 MG CAPS 1 capsule Take 1 tablet by mouth daily. 0 Active omeprazole (PRILOSEC) 20 MG capsule Take 1 capsule (20 mg total) by mouth daily. 0 Active Multiple Vitamins-Minerals (CENTRUM SILVER PO) Take by mouth. 0 A ctive Cetirizine HCl (ZYRTEC PO) Take by mouth as needed. 0 Active SUMAtriptan Succinate (IMITREX PO) Take by mouth. 0 Active levothyroxine (SYNTHROID, LEVOXYL) tablet 88 mcg Take 1 tablet (88 mcg total) by mouth every morning on an empty stomach. 0 Active cholecalciferol (VITAMIN D3) 1000 UNITS tablet Take 1 tablet (1,000 Units total) by mouth daily. 0 Active valsartan 160 MG TABS 1 tablet, hydrochlorothiazide 12.5 MG CAPS 1 capsule Take 1 tablet by mouth daily. 0 Active irbesartan-hydroCHLOROthi azide (AVALIDE) 300-12.5 MG per tablet Take 1 tablet by mouth daily. 0 Active nystatin (MYCOSTATIN) powder Apply topically to axillary region twice a day. 30 g 1 10/12/2020 Active anastrozole (ARIMIDEX) 1 MG tablet TAKE 1 TABLET(1 MG) BY MOUTH DAILY 90 tablet 3 10/22/2022 Active amLODIPine (NORVASC) tablet 5 mg Take 1 tablet (5 mg total) by mouth daily. 0 Active Active Problems Problem Noted Date Diagnosed Date Malignant neoplasm of lower- outer quadrant of left female breast 12/31/2016 Family History Medical History Relation Name Comments Hypertension Father Cancer Maternal Aunt liver Diabetes Maternal Grandmother Cancer Mother Hypotension Mother Cancer Paternal Grandfather liver Cancer Sister Vulva Relation Name Status Comments Father Maternal Aunt Maternal Grandmother Mother Paternal Grandfather Sister Social History Tobacco Use Types Packs/Day Years Used Date Smoking Tobacco: Never Smokeless Tobacco: Never Alcohol Use Standard Drinks/Week Comments No 0 (1 standard drink = 0.6 oz pur e alcohol) Sex and Gender Information Value Date Recorded Sex Assigned at Not on file Gender Identity Not on file Sexual Orientation Not on file Job Start Date Occupation Industry Not on file Not on file Not on file Last Filed Vital Signs Vital Sign Reading Time Taken Comments Blood Pressure 174/71 10/27/2023 9:02 AM EDT Pulse 70 10/27/2023 9:02 AM EDT Temperature 36.4 C (97.6 F) 10/27/2023 9:02 AM EDT Respiratory Rate - - Oxygen Saturation 95% 10/27/2023 9:02 AM EDT Inhaled Oxygen Concentration - - Weight 86.2 kg (190 lb) 12/09/2022 9:28 AM EDT Height 165.1 cm (5' 5 ) 12/09/2022 9:28 AM EDT Body Mass Index 31.62 12/09/2022 9:28 AM EDT Plan of Treatment Health Maintenance Due Date Last Done Comments Hepatitis C Screening 1950 COVID-19 Vaccine (#1) 1953 Pneumococcal Vaccine (1 of 2 - PCV) 1954 Depression Screening 1960 BMI Counseling 1966 Preventative Health Evaluation 1966 DTap / Tdap / Td (1 - Tdap) 09/01/1967 Shingrix-Zoster Vaccine (1 of 2) 09/01/1967 Fall Risk Assessment 2013 Osteoporosis Screening (DEXA Scan) 2013 RSV Adult > 60+ Yrs or Pregn ant (1 - 1-dose 75+ series) 09/01/2023 Influenza Vaccine (#1) 2025 Hepatitis B Vaccines Aged Out No long er eligible based on patient's age to complete this topic RSV Ped < 20 months Aged Out No longe r eligible based on patient's age to complete this topic Care Teams Gear Shaper Relationship Specialty Start Date End Date Sonny Llanes MD [address] [place] [phone] PCP - General Internal Medicine 12/24/16
--- OUTSIDE RECORDS SUMMARY | 2025-01-16 11:15 | XMS_ITS | Patient Health Record ---
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 Panel Fa st Reviewed date:02/05/2024 03:49:32 PM Interpretation: Performing Lab:[facility], [address] [place] [phone] Notes/Report: Sodium 143 135-145 mmol/L Potassium 3.9 3.3-5.1 mmol/L Chloride 108 96-108 mmol/L Carbon Dioxide 26 22-29 mmol/L Anion Gap 13 12-20 Blood Urea Nitrogen 16 9-16 mg/dL Creatinine 0.94 0.5-1.4 mg/dL Estimated Glomerular Filt Rate 58 NOTE: For -[place]and[place] individuals, multiply the result by 1.210. Chronic [...] Panel Reviewed date:02/05/2024 03:48:52 PM Interpretation: Performing Lab:[address] [phone] Notes/Report: Triglycerides 179 <150 mg/dL Desirable Triglyceride: [...] T4 Reviewed date:02/05/2024 03:47:18 PM Interpretation: Performing Lab:[address] [phone] Notes/Report: TSH reflex Free T4 0.49 0.32-4.0 uIU/mL Microalbumin, Random Reviewed date:02/05/2024 03:52:10 PM Interpretation: Performing Lab:[address] [phone] Notes/Report: Creatinine Urine 178.67 Microalbumin Urine 19.0 Microalbum/Creatinine Ratio Ur 10.6 <30 ug/mg cr Albumin/Creatinine Ratio Reference Ranges: Normal: < 30 ug/mg creatinine Microalbuminuria: 30 - 300 ug/mg creatinine Clinical Albuminuria: > 300 ug/mg creatinine Hemoglobin A1c Reviewed date:02/05/2024 03:50:32 PM Interpretation: Performing Lab:[facility], [address] [place] [phone] Notes/Report: Hemoglobin A1c % 5.4 <6.0 % [...] average glucose, using the formula of the H8W-Rpjyhwn Average Glucose study (ADAG), Diabetes Care, Vol.31,#8, 2007 UA ClnCatch+Micro w/rflx Cul t Reviewed date:02/07/2024 05:02:30 PM Interpretation: Performing Lab:[facility], [address] [place] [phone] Notes/Report: Urine, Clean Catch Color Urine Yellow Appearance Urine Cloudy PH 6.0 5.0-9.0 Glucose Urine UA Negative Negative mg/dL Urine Blood Trace Negative Specific Tanner - Urine 1.020 1.005-1.025 Urine Protein Negative Neg-Trace mg/dL Urine Ketones Negative Negative mg/dL Nitrite Urine Negative Negative Leukocyte Esterase Urine Large (3+) Negative RBC Urine 0-2 0-2 /HPF WBC Urine >50 0-5 /HPF Squamous Epithelial Cell Urine 0-2 0-2 /HPF Bacteria Urine 4+ None Seen Hyaline Casts Urine 0-2 0-2 /LPF UA ClnCatch+Micro w/rflx Cul t Reviewed date:02/22/2024 12:29:26 PM Interpretation: Performing Lab:[facility], [address] [place] [phone] Notes/Report: Urine, Clean Catch Color Urine Yellow Appearance Urine Clear PH 6.0 5.0-9.0 Glucose Urine UA Negative Negative mg/dL Urine Blood Negative Negative Specific Tanner - Urine 1.015 1.005-1.025 Urine Protein Negative Neg-Trace mg/dL Urine Ketones Negative Negative mg/dL Nitrite Urine Negative Negative Leukocyte Esterase Urine Trace Negative RBC Urine 0-2 0-2 /HPF WBC Urine 0-5 0-5 /HPF Squamous Epithelial Cell Urine 0-2 0-2 /HPF Bacteria Urine None Seen None Seen Hyaline Casts Urine 0-2 0-2 /LPF TSH reflex Free T4 Reviewed date:08/12/2024 12:55:39 PM Interpretation: Performing Lab:[facility], [address] [place] [phone] Notes/Report: TSH reflex Free T4 0.91 0.32-4.0 uIU/mL Hold Gold Reviewed date:02/05/2024 03:45:51 PM Interpretation: Performing Lab:[facility], [address] [place] [phone] Notes/Report: Hold Gold See Note Specimen held untested for 24 hours; Call to request Chemistry testing. Urine Culture Reviewed date:02/08/2024 12:48:41 PM Interpretation: Performing Lab:[facility], [address] [place] [phone] Notes/Report: O:KLEPNE Klebsiella pneumoniae Urine Culture Quant Urine Culture > 100,000 cfu/mL Ampicillin 16 Cefazolin <=4 Ceftriaxone <=0.25 Gentamicin <=1 Levofloxacin <=0.12 Nitrofurantoin <=16 Trimethoprim/Sulfamethoxa zole <=20 Hold Gold Reviewed date:08/12/2024 12:23:17 PM Interpretation: Performing Lab:[facility], [address] [place] [phone] Notes/Report: Hold Gold See Note Specimen held untested for 24 hours; Call to request Chemistry testing. MM tomosynthesis screening B I Reviewed date:10/31/2024 05:04:11 PM Interpretation: Performing Lab: Notes/Report: [facility] [address] [place] [address] Mammography Report Signed Patient: Renetta Walters MR#: [id number] : 1950 Acct:[id number] Age/Sex: 74 / F ADM Date: 10/24/24 Loc: HO.MAMMO Attending Dr: Sonny Llanes MD Ordering Physician: Ivan Sanders MD Results: 2Beni gn Findings Date of Service: 10/24/24 Follow Up: 1 Year From Orig inal Mammogram Procedure(s): MM tomosynthesis screening BI Accession Number(s): [id number] cc: Sonny Llanes MD; CHERY SILVA MD; Ivan Sanders MD; Cadence Capone DO EXAMINATION: MM SCREENING DIGITAL BREAST TOMOSYNTHESIS, BILATERAL CLINICAL INFORMATION: Screening. Asymptomatic. COMPARISON: Mammography: Comparison is made with available priors TECHNIQUE: Digital breast mammography with tomosynthesis is performed in both the craniocaudal and mediolateral oblique views along with computer-aided detection (CAD). FINDINGS: There are scattered areas of fibroglandular density (ACR BI-RADS breast composition Category b). Left lumpectomy changes are stable. There are no significant masses, abnormal calcifications, or other abnormalities. MM/MM tomosynthesis screening BI IMPRESSION: No mammographic evidence of malignancy. ASSESSMENT: BI-RADS BI-RADS 2 - Benign Findings RECOMMENDATION: Routine annual mammography screening. 1 year F/U This examination should not preclude the clinical evaluation of a suspicious palpable abnormality. This patient's information was entered into a reminder system with a target due date for their next mammogram. 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 [place] [id number] Mammography Report Signed Patient: Renetta Walters MR#: [id number] : 1950 Acct:[id number] Age/Sex: 74 / F ADM Date: 10/24/24 Loc: SAM Attending Dr: Sonny Llanes MD Ordering Physician: Ivan Sanders MD Results: 2Beni gn Findings Date of Service: 10/24/24 Follow Up: 1 Year From Orig inal Mammogram Procedure(s): MM tomosynthesis screening BI Accession Number(s): [id number] cc: Sonny Llanes MD; CHERY SILVA MD; Ivan Sanders MD; Cadence Capone DO EXAMINATION: MM SCREENING DIGITAL BREAST TOMOSYNTHESIS, BILATERAL CLINICAL INFORMATION: Screening. Asymptomatic. COMPARISON: Mammography: Comparison is made with available priors TECHNIQUE: Digital breast mammography with tomosynthesis is performed in both the craniocaudal and mediolateral oblique views along with computer-aided detection (CAD). FINDINGS: There are scattered areas of fibroglandular density (ACR BI-RADS breast composition Category b). Left lumpectomy changes are stable. There are no significant masses, abnormal calcifications, or other abnormalities. MM/MM tomosynthesis screening BI IMPRESSION: No mammographic evidence of malignancy. ASSESSMENT: BI-RADS BI-RADS 2 - Benign Findings RECOMMENDATION: Routine annual mammography screening. 1 year F/U This examination should not preclude the clinical evaluation of a suspicious palpable abnormality. This patient's information was entered into a reminder system with a target due date for their next mammogram. Electronically leila d by: Monika Guerrero DO 10/29/2024 04:07 PM EDT Dictated By: Monika Guerrero DO Signed By: <Electronically signed by Monika Guerrero DO in OV> 10/29/24 1607 DD/ 0815 TD/TT: 10/24/24 0830 Maintenance Supervisor Electrical: Reason For Referral No Information Medications Medication SIG (Take, Route, Frequency, Duration) Notes Start Date End Date Status Levothyroxine Sodium 88 MCG TAKE ONE BY MOUTH EVERY MORNING for 90 Active Gabapentin 100 MG 1 capsule Orally Onc [...] TABLET B Y MOUTH EVERY DAY Active Irbesartan-hydroCHLOROthia zide 300-12.5 MG 1 tablet [...] Problem Status W/U Status Risk Notes Problem 65850828 Lymphocytosis (D72.820) Active confirmed Problem 414184967 Tubular adenoma (D36.9) Active confirmed Problem 648006022 Other specified menopausal and perimenopausal disorders (N95.8) Active confirmed Problem Disorder of lumbar disc (296729715) Lumbar disc disease (M51.9) Active confirmed Problem 447350230 Gastroesophageal reflux disease without esophagitis (K21.9) Active confirmed Problem 35069669 Essential hypertension (I10) Active confirmed Problem 058521250 Acquired hypothyroidism (E03.9) Active confirmed Problem 2089089 Prediabetes (R73.09) Active confirmed Problem 112820893 History of breas t cancer (Z85.3) Active confirmed Problem 9792187 Migraine with au ra and without status migrainosus, not intractable (G43.109) Active confirmed Problem 589765602 Lymphocele (I89.8) Active confirmed Problem Grief (422371180) Grief (F43.20) Active confirmed Problem 444508585 Arthritis of kne e (M17.10) Active confirmed Problem 3340182757680 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 89 Sonny Llanes MD [address] [place] [address] [id number] 08/12/2024 Sonny Llanes Acquired hypothyroidism E03.9 Sonny Llanes MD [address] [place] [address] [id number] 02/15/2024 Sonny Llanes Atypical chest pain R07.89 ; Annual physical exam Z00.00 ; Acute UTI N39.0 ; Essential hypertension I10 ; Acquired hypothyroidism E03.9 ; Prediabetes R73.09 and Depression screening Z13.31 Sonny Llanes MD [address] [place] [address] [id number] 08/15/2024 Sonny Llaens Essential hypertensi on I10 and Acquired hypothyroidism E03.9 Sonny Llanes MD [address] [place] [address] [id number] 02/08/2024 Sonny Llanes MD [address] [place] [address] [id number] 02/15/2024 Sonny Llanes MD [address] [place] [address] [id number] 04/01/2024 Sonny Llanes Acquired hypothyroidism E03.9 Sonny Llanes MD [address] [place] [address] [id number] 04/05/2024 Sonny Llanes Acquired hypothyroidism E03.9 Sonny Llanes MD [address] [place] [address] [id number] 06/07/2024 Sonny Llanes Essential hypertensi on I10 [...] Name:Sonny Hartman ier, 02/13/2025 07:30:00 AM, [address], [address], [place], [place], [phone], Provider Name:Sonny Hartman ier, 02/20/2025 08:30:00 AM, [address], [address], [place], [place], [phone], Insurance Providers Payer Name Payer Address Payer Phone Subscriber Number Group Number Insured Name Patient Relationship to Insured Coverage Start Date Coverage End Date [employer] [address] [place], [place] [id number] Renetta Walters Self - patient is the insured Medical (General) History Medical History History ICD Code herpes zoster 2009 colonoscopy 02/2008 hyperpla stic due in 2017 Dr. Romero; 01/28/18 colonoscopy w/Dr. 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 Birnk Endo 01/28/18 - Dr. Romero fecal occult blood 2024 negative Surgical History Surgery Date(Month/Year) cholecystectomy hysterectomy, total with bilateral salpi fallon-oophorectomy (BSO) partial lt breast mastectomy 08/2016
--- OUTSIDE RECORDS SUMMARY | 2025-01-16 11:16 | XMS_ITS | Patient Health Record ---
Author Organization [facility] Address [address] [place] [address] Care Team Providers Care Cost Clerk Name Role Phone Mario Alberto GARCIA, Sonny Primary Care Provider Shikha Chapman Unavailable [phone] Allergies No Known Allergies Reason For Referral No Information Medications Medication SIG (Take, Route, Frequency, Duration) Notes Start Date End Date Status Calcium Active Centrum Silver 50+Women - one tablet Ora lly once a day Active Imitrex 100 MG 1 tablet as needed Orally Once a day Active Vitamin D3 25 MCG (1000 UT) 1 capsule Or ally Once a day Active Anastrozole 1 MG 1 tablet Orally Once a day Active Irbesartan-hydroCHLOROthiazi de 150-12.5 MG 1 tablet Orally Once a day Active Levothyroxine Sodium 88 MCG 1 tablet on an empty stomach in the morning Orally Once a day Active Immunizations Vaccine Route Administration Date Status Comme nts Influenza Unknown 04/24/2017 Administered Influenza Unknown 01/23/2021 Administered Social History Tobacco Use: Social History Observation Description Date Details (start date - stop date) Never Smoker NA - NA Tobacco Use/Smoking Question Answer Notes Patient is a nonsmoker Alcohol Screen Question Answer Notes Did you have a drink contain ing alcohol in the past year? Yes How often did you have a dri nk containing alcohol in the past year? 2 to 4 times a month (2 points) How many drinks did you have on a typical day when you were drinking in the past year? 1 or 2 drinks (0 point) How often did you have 6 or more drinks on one occasion in the past year? Never (0 point) Points 2 Interpretation Negative Section Notes: Nonsmoker; no sig alcohol Nonsmoker; no sig alcohol Problems Problem Type SNOMED Code ICD Code Onset Dates Problem Status W/U Status Risk Notes Problem 904261198 Encounter for screening for malignant neoplasm of colon (Z12.11) Active confirmed Problem 761785688 History of adenomatous polyp of colon (Z86.010) Active confirmed Problem 542518789755283 Preprocedural examination (Z01.818) Active confirmed Problem 353981690 Gastroesophageal reflux disease, esophagitis presence not specified (K21.9) Active confirmed Problem Diverticulosis of colon (910862732) Diverticulosis of colon (K57.30) Active confirmed Plan Of Treatment Future Test Test Name Order Date UPPER GI ENDOSCOPY 12/16/2017 COLONOSCOPY 12/16/2017 COLONOSCOPY 02/21/2021 Insurance Providers Payer Name Payer Address Payer Phone Subscriber Number Group Number Insured Name Patient Relationship to Insured Coverage Start Date Coverage End Date MEDICARE OF [place] [address] [place] [address] [id number] KENDRA SOTO Self - patient is the insured [employer] [employer] [address] [place] [address] [id number] KENDRA SOTO Self - patient is the insured Medical (General) History Medical History History ICD Code Breast cancer 07/2016--left--surgery as b elow Pneumonia 2016 Denies [place],DM,CVA,Lung disease,renal dise ase Seasonal allergies HTN GERD--EGD in January revealed a minimal hiatal hernia and benign gastric polyp, without any evidence of esophagitis nor Rosa's esophagus Neg screening colonoscopy in 09/2007--diverticulosis, internal hemorrhoids, hyperplastic polyps Screening colonoscopy in Jan revealed a flat tubular adenoma removed from the transverse colon Surgical History Surgery Date(Month/Year) Lumpectomy, left breast and XRT for nitesh st cancer 08/2016 Cholecystectomy 2001 [facility] Bunionectomy left foot
--- OUTSIDE RECORDS SUMMARY | 2025-01-16 11:16 | XMS_ITS | Clinical Summary ---
Author Organization [facility] Address [address] [place] [address] Phone Care Team Providers Care Director Of Music Therapy Name Role Phone Sonny Llanes MD Primary Care Provider [phone] Allergies No known active allergies Medications amLODIPine (NORVASC) 5 mg tablet Take 1 tablet (5 mg total) by mouth daily. Active cetirizine HCl (ZYRTEC ORAL) Take by mouth as needed. Active cholecalciferol (VITAMIN D-3) 25 mcg (1,000 unit) tablet Take 1 tablet (1,000 Units total) by mouth daily. Active irbesartan-hydr oCHLOROthiazide (AVALIDE) 300-12.5 mg per tablet Take 1 tablet by mouth daily. Active levothyroxine (SYNTHROID, LEVOTHROID) 88 mcg tablet Take 1 tablet (88 mcg total) by mouth every morning on an empty stomach. Active folic acid/multivit-m in/lutein (CENTRUM SILVER ORAL) Take by mouth. Activ e nystatin (MYCOSTATIN) 100,000 unit/gram powder Apply topically to axillary region twice a day. 1 Active SUMATRIPTAN SUCCINATE ORAL Take by mouth. Active gabapentin (NEURONTIN) 100 mg capsule Take 2 capsules (200 mg total) by mouth 1 (one) time each day in the evening. 5 Active Active Problems Problem Noted Date Diagnosed Date Other specified hypothyroidism 11/07/2024 Primary hypertension 11/07/2024 Malignant neoplasm of lower- outer quadrant of left female breast (CMS/HCC V24, CMS/HCC V28) 12/31/2016 Encounters Date Type Department Care Team Description 11/07/2024 9:00 AM EDT Office Visit [facility] Hematology Oncology [address] [place] [address] Cadence Capone DO Malignant neoplasm of lower-outer quadrant of left breast of female, estrogen receptor positive ([facility] V24, [facility] V28) (Primary Dx) from Last 3 Months Surgical History Surgery Date Site/Laterality Comments CHOLECYSTECTOMY PROCEDURE:CHOLECYSTECTOMY TONSILLECTOMY PROCEDURE:TONSILLECTOMY HYSTERECTOMY PROCEDURE:HYSTERECTOMY OOPHORECTOMY PROCEDURE:OOPHORECTOMY BUNIONECTOMY PROCEDURE:BUNIONECTOMY Medical History Medical History Date Comments Hypertension DX:Hypertension GERD (gastroesophageal reflux disease) DX:GERD (gastroesophageal reflux disease) Disease of thyroid gland DX:Dise ase of thyroid gland Breast cancer ([facility] V24, [facility] V28) DX:Breast cancer (HCC) Heart murmur DX:Heart murmur Pneumonia DX:Pneumonia Pneumonia DX:Pneumonia Family History Medical History Relation Name Comments Hypertension Father Diabetes Maternal Grandmother Cancer Mother Hypotension Mother Cancer Mother's Sister liver Cancer Paternal Grandfather liver Cancer Sister Vulva Relation Name Status Comments Father Maternal Grandmother Mother Mother's Sister Paternal Grandfather Sister Social History Tobacco Use Types Packs/Day Years Used Date Smoking Tobacco: Never Smokeless Tobacco: Never Alcohol Use Standard Drinks/Week Comments No 0 (1 standard drink = 0.6 oz pur e alcohol) Comments Unknown Sex and Gender Information Value Date Recorded Sex Assigned at Not on file Legal Sex Female 9:26 PM EST Gender Identity Not on file Sexual Orientation Not on file Obstetrics History Last Filed Vital Signs Vital Sign Reading Time Taken Comments Blood Pressure 143/77 11/07/2024 9:11 AM EDT Pulse 91 11/07/2024 9:11 AM EDT Temperature 36.6 C (97.9 F) 11/07/2024 9:11 AM EDT Respiratory Rate - - Oxygen Saturation 96% 11/07/2024 9:11 AM EDT Inhaled Oxygen Concentration - - Weight 89.9 kg (198 lb 3.2 oz) 11/07/2024 9:11 A M EDT Height 165.1 cm (5' 5 ) 11/07/2024 9:11 AM EDT Body Mass Index 32.98 11/07/2024 9:11 AM EDT Plan of Treatment Upcoming Encounters Date Type Department Care Team (Late st Contact Info) Description 11/07/2025 9:00 AM EDT Office Visit [facility] Hematology Oncology [address] [place] [phone] Cadence Capone, DO [address] [place] [address] Health Maintenance Due Date Last Done Comments DTaP,Tdap,and Td Vaccines (1 - Tdap) 09/01/1967 Zoster Vaccines (1 of 2) 09/01/1967 Pneumococcal Vaccine: 50+ Years (2 of 2 - PCV) 01/04/2020 01/03/2019 Cholesterol Screening (Lipid Panel) 05/01/2022 Falls Risk Assessment 05/01/2022 Hepatitis C Screening 05/01/2022 Social Influencers of Health Screening 05/01/2022 Depression Screening 05/25/2024 COVID-19 Vaccine (8 - Moderna risk season) 2024 02/24/2024, 02/24/2023, 03/17/2022, Additional history exists Hypertension/CHF/CAD Annual BMP Blood Test 11/07/2024 Influenza Vaccine (#1) 2025 , 02/12/2023, 02/03/2022, Additional history exists Osteoporosis Screening (Bone Density Screening) 03/04/2033 03/04/2023, 02/24/2022, 02/22/2019 RSV Immunization Adult Patients Completed 03/19/2023 HIB Vaccines Aged Out No longer eligi ble based on patient's age to complete this topic HPV Vaccines Aged Out No longer eligi ble based on patient's age to complete this topic Hepatitis A Vaccines Aged Out No long er eligible based on patient's age to complete this topic Hepatitis B Vaccines Aged Out No long er eligible based on patient's age to complete this topic IPV Vaccines Aged Out No longer eligi ble based on patient's age to complete this topic MMR Vaccines Aged Out No longer eligi ble based on patient's age to complete this topic Meningococcal ACWY Vaccine Aged Out N o longer eligible based on patient's age to complete this topic Meningococcal B Vaccine Aged Out No l onger eligible based on patient's age to complete this topic RSV Immunization Patients Under 20 months Aged Out No longer eligible based on patient's age to complete this topic Varicella Vaccines Aged Out No longer eligible based on patient's age to complete this topic Procedures Procedure Name Priority Date/Time Associated Diagnosis Comments HISTORICAL IMAGING SCAN RESULT 11/07/2024 [facility] DEXA AXIAL SKELETON Routine 03/04/2023 10:03 AM EDT Other specified disorders of bone density and structure, multiple sites from Last 3 Months or Most Recently Relevant to Health Maintenance Results * HISTORICAL IMAGING SCAN RESULT (11/07/2024) Anatomical Region Laterality Modality Ultrasound us Provider Onbase MD BOX US PROCEDURES Final Resul t * [facility] DEXA AXIAL SKELETON (03/04/2023 10:03 AM EDT) Anatomical Region Laterality Modality Mammography 03/04/2023 8:47 AM EDT Narrative 03/04/2023 10:03 AM EDT [facility] Diagnostic Imaging Department [address] [place] [address] Patient: YAWYENNYRENETTA /Age/Sex: 1950 - 72 - F Unit#: [id number] Location/Status: SPDIMAM/REG CLI Mnem[facility] Ordering Physician: ELIER SILVA MD [facility] Dexa Axial Skeleton - 10/11/23 - 0923 Report Status:Signed HISTORY: The patient is a 72-year-old postmenopausal female with clinical concern for metabolic bone disease. FINDINGS: Dual energy x-ray absorptiometry of the lumbar spine and femurs is performed. The mean bone mineral density at L1-L4 (with the exclusion of L3) is 1.415 gm/cm2 which is 121% of that of young normals and 135% of that of age matched controls. This yields a T-score of 2.0 and a Z-score of 3.0 and there is therefore no evidence of osteoporosis or osteopenia here. The mean bone mineral density of the femurs bilaterally is 0.917 gm/cm2 which is 91% of that of young normals and 107% of that of age matched controls. This yields a T-score of -0.7 and a Z-score of 0.5 and there is therefore no evidence of osteoporosis or osteopenia here. However, the T-score of the right femoral neck is -1.3 and that of the left femoral neck is -1.2 which is diagnostic of osteopenia. IMPRESSION: 1. Osteopenia. There has been a decrease of 1.3% in bone mineral density in the lumbar spine since the prior examination of 02/24/2022. There has been a decrease of 2.2% in bone mineral density in the right femur and an increase of 2.2% in bone mineral density in the left femur. 2. FRAX analysis yields a 10-year probability of major osteoporotic fracture of 10.0% and a 10-year probability of hip fracture of 1.7%. Code 59096 Dictating Physician: VAIBHAV MUIR MD Electronically Signed by: VAIBHAV MUIR MD Dic Date/Time: 03/04/23 1001 Sign date/Time: 03/04/23 1003 Procedure Note Vaibhav Muir MD - 06/30/2023 [facility] Diagnostic Imaging Department [address] [place] [address] Patient: RENETTA WALTERS /Age/Sex: 1950 - 72 - F Unit#: [id number] [facility] Ordering Physician: ELIER SILVA MD [facility] Dexa Axial Skeleton - 03/04/23922 Report Status:Signed HISTORY: The patient is a 72-year-old postmenopausal female withclinical concern for metabolic bone disease. FINDINGS: Dual energy x-ray absorptiometry of the lumbar spine and femursis performed. The mean bone mineral density at L1-L4 (with the exclusion ofL3) is 1.415 gm/cm2 which is 121% of that of young normals and 135% of that ofage matched controls. This yields a T-score of 2.0 and a Z-score of 3.0 andthere is therefore no evidence of osteoporosis or osteopenia here. The mean bone mineral density of the femurs bilaterally is 0.917 gm/cy0kjttr is 91% of that of young normals and 107% of that of age matched controls.This yields a T-score of -0.7 and a Z-score of 0.5 and there is therefore noevidence of osteoporosis or osteopenia here. However, the T-score of the rightfemoral neck is -1.3 and that of the left femoral neck is -1.2 which is diagnosticof osteopenia. IMPRESSION: 1. Osteopenia. There has been a decrease of 1.3% in bone mineral densityin the lumbar spine since the prior examination of 02/24/2022. There has joseph decrease of 2.2% in bone mineral density in the right femur and anincrease of 2.2% in bone mineral density in the left femur. 2. FRAX analysis yields a 10-year probability of major osteoporoticfracture of 10.0% and a 10-year probability of hip fracture of 1.7%. Code 43188 Dictating Physician: VAIBHAV MUIR MD Electronically Signed by: VAIBHAV MUIR MD Dic Date/Time: 03/04/23 1001 Sign date/Time: 03/04/23 1003 Elier Silva MD IMG BI PROCEDURES Final Result from Last 3 Months or Most Recently Relevant to Health Maintenance Insurance [facility]) Care Teams Director Of Music Therapy Relationship Specialty Start Date End Date Sonny Llanes MD [address] [place] [address] PCP - General Internal Medicine 12/24/16
== END 2025-01-16 16:17 | disposition home or self-care (01) ==
LOC: HO.HMGAL 10:10
PROVIDERS: PCP Internal Medicine; Visit Provider Registered Nurse Emergency
DX: J30.89 Other allergic rhinitis (principal)
CPT/HCPCS: 95117; 95165

== ENCOUNTER 2025-02-06 09:56 | Outpatient (AMB) | payer MEDICARE, SELFPAY ==
--- OUTSIDE RECORDS SUMMARY | 2024-04-01 07:04 | XMS_ITS ---
Author Organization Sonny Llanes MD Address [address] [place] [phone] Care Team Providers Care Toy Department Manager Name Role Phone Sonny Llanes Primary Care Provider REASON FOR VISIT RF Medications Medication SIG (Take, Route, Frequency, Duration) Notes Start Date End Date Status Levothyroxine Sodium 88 MCG take one by mouth every morning Orally Once a day for 90 days Active Encounters Encounter Location Date Provider Diagnosis Sonny Llanes MD [address] [place] [phone] 04/01/2024 Sonny Llanes Acquired hypothyroidism E03.9 Assessments Encounter Date Diagnosis (ICD Code) Assessment Notes Treatment Notes Treatment Clinical Notes Section Notes 04/01/2024 Acquired hypothyroidism (ICD-10 - E03.9) Plan Of Treatment Medication Medication Name Sig Start Date Stop Date Notes Levothyroxine Sodium 88 MCG take one by mouth every morning Orally Once a day for 90 days Next Appt Details Provider Name:Sonny Hartman ier, 02/13/2025 08:30:00 AM, [address] [place] [address], [place] [address], [place], [place], [phone], Provider Name:Sonny Hartman ier, 02/20/2025 08:30:00 AM, [address] [place] [address], [place] [address], [place], [place], [phone], Progress Notes * Renetta WALTERS LDOB:[birth year] (73 yo F)Acc No.[id number]:04/01/2024 Patient: Victor Hugo Renetta geller :1950 A ge:73 Y S ex:Female Address:[address] [place] [id number] * Refills Refill Levothyroxine Sodium Tablet, 88 MCG, Orally, 90, take one by mouth every morning, Once a day, 90 days, Refills=3 * true * Date: Generated for Ramsey copeland/Abilio/Willsmitting on: 0 02/06/2025 12:19 PM EDT
--- OUTSIDE RECORDS SUMMARY | 2024-04-05 04:02 | XMS_ITS ---
Author Organization Sonny Llanes MD Address [address] [place] [phone] Care Team Providers Care Retail Director Name Role Phone Sonny Llanes Primary Care Provider REASON FOR VISIT RF Levothyroxine Medications Medication SIG (Take, Route, Frequency, Duration) Notes Start Date End Date Status Levothyroxine Sodium 88 MCG take one by mouth every morning Orally Once a day for 90 days Active Encounters Encounter Location Date Provider Diagnosis Sonny Llanes MD [address] [place] [phone] 04/05/2024 Sonny Llanes Acquired hypothyroidism E03.9 Assessments [...] Provider Name:Sonny Hartman ier, 02/13/2025 08:30:00 AM, [address] [place] [address], [place] [address], [place], [place], [phone], Provider Name:Sonny Hartman ier, 02/20/2025 08:30:00 AM, [address] [place] [address], [place] [address], [place], [place], [phone], Progress Notes * Renetta WALTERS LDOB:[birth year] (73 yo F)Acc No.[id number]:04/05/2024 Patient: Victor Hugo Renetta geller :1950 A ge:73 Y S ex:Female Address:[address] [place] [address] , [place] [address] * Refills Refill Levothyroxine Sodium Tablet, 88 MCG, Orally, 90, take one by mouth every morning, Once a day, 90 days, Refills=3 * true * Date: Generated for Ramsey copeland/Abilio/Willsmitting on: 0 02/06/2025 12:19 PM EDT
--- OUTSIDE RECORDS SUMMARY | 2024-06-07 06:34 | XMS_ITS ---
Author Organization Sonny Llanes MD Address [address] [place] [phone] Care Team Providers Care Shop Manager Name Role Phone Sonny Llanes Primary Care Provider [phone] REASON FOR VISIT refill Medications Medication SIG (Take, Route, Frequency, Duration) Notes Start Date End Date Status Irbesartan-hydroCHLOROthia zide 300-12.5 MG 1 tablet Orally Once a day for 90 days Active Encounters Encounter Location Date Provider Diagnosis Sonny Llanes MD [address] [place] [phone] 06/07/2024 Sonny Llaens Essential hypertension I10 Assessments Encounter Date Diagnosis (ICD Code) Assessment Notes Treatment Notes Treatment Clinical Notes Section Notes 06/07/2024 Essential hypertension (ICD-10 - I10) Plan Of Treatment Medication Medication Name Sig Start Date Stop Date Notes Irbesartan-hydroCHLOROthiazi de 300-12.5 MG 1 tablet Orally Once a day for 90 days Next Appt Details Provider Name:Sonny Hartman ier, 02/13/2025 08:30:00 AM, [address] [place] [address], [place] [address], [place], [place], [phone], Provider Name:Sonny Hartman ier, 02/20/2025 08:30:00 AM, [address] [place] [address], [place] [address], [place], [place], [phone], Progress Notes * Renetta WALTERS LDOB:[birth year] (73 yo F)Acc No.[id number]:06/07/2024 Patient: Victor Hugo Renetta geller :1950 A ge:73 Y S ex:Female Address:[address] [place] [address] , [place] [address] * Refills Refill Irbesartan-hydroCHLOROthiazide Tablet, 300-12.5 MG, Orally, 90 Tablet, 1 tablet, Once a day, 90 days, Refills=3 * true * Date: Generated for Ramsey copeland/Abilio/Justineitting on: 0 02/06/2025 12:20 PM EDT
--- OUTSIDE RECORDS SUMMARY | 2024-08-12 05:00 | XMS_ITS ---
Author Organization Sonny Llanes MD Address [address] [place] [phone] Care Team Providers Care Tumbler Plater Name Role Phone Sonny Llanes Primary Care Provider [phone] Results Component Value Reference Range Notes TSH reflex Free T4 Reviewed date:08/12/2024 12:55:39 PM Interpretation: Performing Lab:[facility], [address] [place] [phone] Notes/Report: TSH reflex Free T4 0.91 0.32-4.0 uIU/mL REASON FOR VISIT TSH Encounters Encounter Location Date Provider Diagnosis Sonny Llanes MD [address] [place] [phone] 08/12/2024 Sonny Llanes Acquired hypothyroidism E03.9 Assessments Encounter Date Diagnosis (ICD Code) Assessment Notes Treatment Notes Treatment Clinical Notes Section Notes 08/12/2024 Acquired hypothyroidism (ICD-10 - E03.9) Plan Of Treatment Next Appt Details Provider Name:Sonny Hartman ier, 02/13/2025 08:30:00 AM, [address], Suite [facility], [place], [place], [phone], Provider Name:Sonny Hartman ier, 02/20/2025 08:30:00 AM, 10 [facility], Suite [place] [facility], [place], [place], [phone], Progress Notes * Renetta WALTERS LDOB:[birth year] (74 yo F)Acc No.[id number]:08/12/2024 Progress Note Patient: Renetta POTTER Provider: Cliff Llanes MD :1950 A ge:73 Y S ex:Female Date:08/12/2024 Address:[address] [place], [place] [phone] Subjective: * Chief Complaints: * 1 . [...] Pending * Provider: Cliff Llanes MD Date: 08/12/2024 Generated for Ramsey copeland/Abilio/Willsmitting on: 0 02/06/2025 12:19 PM EDT
--- OUTSIDE RECORDS SUMMARY | 2024-08-15 05:00 | XMS_ITS ---
Author Organization Sonny Llanes MD Address [address] [place] [phone] Care Team Providers Care Diorama Model Maker Name Role Phone Sonny Llanes Primary Care Provider [phone] Allergies No Known Allergies REASON FOR VISIT [...] Location Date Provider Diagnosis Sonny Llanes MD [address] [place] [address] [place] [phone] 08/15/2024 Sonny Llanes Essential hypertensi on I10 [...] Name:Sonny Hartman ier, 02/13/2025 08:30:00 AM, [address] [facility] [address], [address], [place], [place], [phone], Provider Name:Sonny Hartman ier, 02/20/2025 08:30:00 AM, 10 [facility], [address], [place], [place], [phone], Progress Notes * Renetta WALTERS LDOB:[birth year] (73 yo F)Acc No.[id number]:08/15/2024 Progress Notes Patient: Renetta POTTER Provider: Cliff Llanes MD :1950 A ge:73 Y S ex:Female Date:08/15/2024 Address:[address] [place] [address] , [facility] Subjective: * Chief Complaints: * 6 MO [...] true * Provider: Cliff Llanes MD Date: 08/15/2024 Generated for Ramsey copeland/Abilio/eTransmitting on: 02/06/2025 12:19 PM EDT History and Physical Notes * [...]
--- OUTSIDE RECORDS SUMMARY | 2025-02-06 12:19 | XMS_ITS | Patient Health Record ---
Author Organization [facility] Address [address] [place] [address] Care Team Providers Care Ell Tutor Name Role Phone Mario Alberto GARCIA, Sonny Primary Care Provider Shikha Chapman Unavailable [phone] Allergies No Known Allergies Reason For Referral [...] Problem Status W/U Status Risk Notes Problem 686646176 Encounter for screening for malignant neoplasm of colon (Z12.11) Active confirmed Problem 875466320 History of adenomatous polyp of colon (Z86.010) Active confirmed Problem [id number] Preprocedural examination (Z01.818) Active confirmed Problem 689088238 Gastroesophageal reflux disease, esophagitis presence not specified (K21.9) Active confirmed Problem Diverticulosis of colon (269076151) Diverticulosis of colon (K57.30) Active confirmed Plan Of Treatment Future Test Test Name Order Date UPPER GI ENDOSCOPY 12/16/2017 COLONOSCOPY 12/16/2017 COLONOSCOPY 02/21/2021 Insurance Providers Payer Name Payer Address Payer Phone Subscriber Number Group Number Insured Name Patient Relationship to Insured Coverage Start Date Coverage End Date MEDICARE OF [place] [address] [place] [address] [id number] KENDRA SOTO Self - patient is the insured [place] [employer] [address] [place] [address] [id number] KENDRA SOTO Self - patient is the insured Medical (General) History Medical History History ICD Code Breast cancer 07/2016--left--surgery as b elow Pneumonia 2016 Denies IN,DM,CVA,Lung disease,renal dise ase Seasonal allergies HTN GERD--EGD [...]
--- OUTSIDE RECORDS SUMMARY | 2025-02-06 12:19 | XMS_ITS | Encounter Summary ---
Author Organization [facility] Address [address] [facility] [address] [place] [address] Phone Care Team Providers Care Educational Institution President Name Role Phone Sonny Llanes MD Primary Care Provider Encounter Details Date Type Department Care Team (Latest Contact Info) Description 03/29/2024 Ancillary Orders [facility], X-Ray - [address] [address] Mary Pressley, TRIMMER OPERATOR [address] [place] [phone] [email or web address] Bilateral primary osteoarthritis of knee (Primary Dx) [...] clinician's provided indication for this examination in [facility]: Pain COMPARISON: None FINDINGS: Left knee: [...] the lateral femoral tibialcompartments us Mary Pressley TRIMMER OPERATOR IMG XR LOWER EXTREMITY Final Res ult documented in this encounter Visit Diagnoses Diagnosis Bilateral primary osteoarthritis of knee- Primary Bilateral primary osteoarthritis of knee documented in this encounter Care Teams Educational Institution President Relationship Specialty Start Date End Date Sonny Llanes MD [address] [place] [address] Dr [place], [place] [address] PCP - General 05/28/17 documented as of this encounter Additional Source Comments The information contained in this document represents components of the legal health record. It is not the complete legal health record.[facility]
--- OUTSIDE RECORDS SUMMARY | 2025-02-06 12:19 | XMS_ITS | Clinical Summary ---
Author Organization [facility] Address [address] [facility] [address] [place] [address] Phone Care Team Providers Care Cotton Feeder Name Role Phone Sonny Llanes MD Primary Care Provider Medications Medication-Free Text Vitamin D 2000 UNIT Tablet, Si tablet Orally Once a day Active levothyroxine (TIROSINT) 88 mcg Cap Take 88 mcg by mouth daily. Active multivitamin-mi nerals-lutein (CENTRUM SILVER) Tab Take 1 tablet by mouth daily. Active SUMATRIPTAN SUCCINATE ORAL 1 cap(s) p.o. Once a day Active valsartan-hydro CHLOROthiazide (DIOVAN HCT) 160-12.5 mg per tablet 1 cap(s) Orally daily Active omeprazole (PRILOSEC) 20 mg TbEC 1 tab(s) p.o. Once daily Active anastrozole (ARIMIDEX) 1 mg tablet Take 1 tablet by mouth daily. 11/22/2016 Active CETIRIZINE HCL (ZYRTEC ORAL) 1 cap(s) orally daily Active Family History Medical History Relation Comments COPD Father Heart attack Maternal Grandfather Asthma Maternal Grandmother Asthma Mother Other Mother ? lung embolism Pneumonia Mother Liver cancer Paternal Grandfather Heart attack Paternal Grandmother Relation Status Comments Father Alive Maternal Grandfather Maternal Grandmother Mother Paternal Grandfather Paternal Grandmother Social History Tobacco Use Types Packs/Day Years [...] on file Sexual Orientation Not on file Last Filed Vital Signs Vital Sign Reading Time Taken Comments Blood Pressure 126/80 02/06/2017 8:37 AM EDT Pulse - - Temperature - - Respiratory Rate - - Oxygen Saturation - - Inhaled Oxygen Concentration - - Weight 84.7 kg (186 lb 12.8 oz) 02/06/2017 8:37 AM EDT Height 162.6 cm (5' 4 ) 02/06/2017 8:37 AM EDT Body Mass Index 32.06 02/06/2017 8:37 AM EDT Plan of Treatment Health Maintenance Due Date Last Done Comments Adult Td,Tdap Booster 1950 CREATININE LEVEL 1950 LIPID PANEL 1950 POTASSIUM LEVEL 1950 TSH LEVEL 1950 DEPRESSION SCREENING 1960 SMOKING Hx and SMOKELESS TOBACCO SCREENING 1961 HEPATITIS C SCREENING 1966 ZOSTER VACCINES (1 of 2) 1998 OSTEOPOROSIS SCREENING INITIAL (ONE-TIME) 2013 PNEUMOCOCCAL VACCINES (50+ years) (2 of 2 - PCV) 01/04/2020 01/03/2019 RSV VACCINE (1 - 1-dose 75+ series) 09/01/2023 INFLUENZA VACCINE (#1) 2024 0, 02/15/2019, 02/08/2018, Additional history exists COVID-19 VACCINE (2 - 2024- season) 2025 07/21/2020 HEPATITIS A VACCINES Aged Out No long er eligible based on patient's age to complete this topic HIB VACCINES Aged Out No longer eligi ble based on patient's age to complete this topic MENINGOCOCCAL VACCINES (ACWY) Aged Out No longer eligible based on patient's age to complete this topic MENINGOCOCCAL VACCINES (B) Aged Out N o longer eligible based on patient's age to complete this topic Medical Devices Not on file Insurance MEDICARE PART A & B [facility] MEDICARE PART A & B [facility] MEDICARE PART A & B MEDICARE PART A & B MEDICARE PART A & [place] [address] [place] [address] MEDICARE PART A & B MEDICARE PART A & B Member Subscriber Plan / Payer (Ef fective 2013-Present) Name:Renetta Walters Member ID:[id number] Relation to Subscriber:Self Name:Renetta Walters Subscriber ID:[id number] Payer ID:[id number] Group ID:Not on file Type:Medicare Address: [facility] [address] [place] [address] [place] [address] MEDICARE PART A & B Member Subscriber Plan / Payer (Ef fective 2013-Present) Name:Renetta Walters Member ID:[id number] Relation to Subscriber:Self Name:Renetta Walters Subscriber ID:[id number] Payer ID:[id number] Group ID:Not on file Type:Medicare Address: [facility] [address] [facility] MEDICARE PART A & B [facility] Care Teams Cotton Feeder Relationship Specialty Start Date End Date Sonny Llanes MD [address] [place] [address] [place] [address] PCP - General 05/28/17 Additional Source Comments The information contained in this document represents components of the legal health record. It is not the complete legal health record.[facility]
--- OUTSIDE RECORDS SUMMARY | 2025-02-06 12:19 | XMS_ITS | Clinical Summary ---
Author Organization [facility] Address [address] [place] [address] Care Team Providers Care Itinerant Teacher Assistant Name Role Phone Sonny Llanes MD Primary Care Provider [phone] Allergies No known active allergies Medications Medication [...] age to complete this topic Care Teams Itinerant Teacher Assistant Relationship Specialty Start Date End Date Sonny Llanes MD [address] [place] [phone] PCP - General Internal Medicine 12/24/16
--- OUTSIDE RECORDS SUMMARY | 2025-02-06 12:19 | XMS_ITS | Patient Health Record ---
Author Organization Sonny Llanes MD Address [address] [place] [phone] Care Team Providers Care Bowling Teacher Name Role Phone Sonny Llanes Primary Care Provider [phone] Allergies No Known Allergies Results Component Value Reference Range Notes UA ClnCatch+Micro w/rflx Cul t Reviewed date:02/22/2024 12:29:26 PM Interpretation: Performing Lab:[facility], [address] [place] [phone] Notes/Report: Urine, Clean Catch Color Urine Yellow Appearance Urine Clear PH 6.0 5.0-9.0 Glucose Urine UA Negative Negative mg/dL Urine Blood Negative Negative Specific [place] - Urine 1.015 1.005-1.025 Urine Protein Negative Neg-Trace mg/dL Urine Ketones Negative Negative mg/dL Nitrite Urine Negative Negative Leukocyte Esterase Urine Trace Negative RBC Urine 0-2 0-2 /HPF WBC Urine 0-5 0-5 /HPF Squamous Epithelial Cell Urine 0-2 0-2 /HPF Bacteria Urine None Seen None Seen Hyaline Casts Urine 0-2 0-2 /LPF TSH reflex Free T4 Reviewed date:08/12/2024 12:55:39 PM Interpretation: Performing Lab:[address] [phone] Notes/Report: TSH reflex Free T4 0.91 0.32-4.0 uIU/mL Hold Gold Reviewed date:08/12/2024 12:23:17 PM Interpretation: Performing Lab:[facility], [address] [place] [phone] Notes/Report: Hold Gold See Note Specimen held untested for 24 hours; Call to request Chemistry testing. MM tomosynthesis screening B I Reviewed date:10/31/2024 05:04:11 PM Interpretation: Performing Lab: Notes/Report: [address] [place] [address] Mammography Report Signed Patient: Renetta Walters MR#: [id number] : 1950 Acct:[id number] Age/Sex: 74 / F ADM Date: 10/24/24 Loc: HO.MAMMO Attending Dr: Sonny Llanes MD Ordering Physician: Ivan Sanders MD Results: 2Beni gn Findings Date of Service: 10/24/24 Follow Up: 1 Year From [facility] Mammogram Procedure(s): MM tomosynthesis screening BI Accession Number(s): [id number] cc: Sonny Llanes MD; CHERY SILVA MD; [...] 10/29/24 1607 DD/ 0815 TD/TT: 10/24/24 0830 Charger Operator: [place] [facility] [address] [place] [address] Mammography Report Signed Patient: Shyanne Walters MR#: [id number] : 1950 Acct:[id number] Age/Sex: 74 / F ADM Date: 10/24/24 Loc: HO.MAMMO Attending Dr: Sonny Llanes MD Ordering Physician: Ivan Sanders MD Results: 2Beni gn Findings Date of Service: 07/19 Follow Up: 1 Year From [facility] Mammogram Procedure(s): MM tomosynthesis screening BI Accession Number(s): [id number] cc: Sonny Llanes MD; CHERY SILVA MD; Ivan Sanders MD; Cadence Capone DO EXAMINATION: MM SCREENING DIGITAL BREAST TOMOSYNTHESIS, BILATERAL CLINICAL INFORMATION: Screening. Asymptomatic. COMPARISON: Mammography: Compari son is made with available priors TECHNIQUE: Digital breast mammography with tomosynthesis is performed in both the craniocaudal and mediolateral oblique views along with computer-aided detection (CAD). FINDINGS: There are scattered areas of fibroglandular density (ACR BI-RADS breast composition Category b). Left lumpectomy black ges are stable. There are no signifi cant masses, abnormal calcifications, or other abnormalities. M M/MM tomosynthesis screening BI IMPRESSION: No mammographic evid ence of malignancy. ASSESSMENT: BI-RADS BI-RADS 2 - Benign Findings RECOMMENDATION: Routine annual mammography screening. 1 year F/U This examination job uld not preclude the clinical evaluation of a suspicious palpable abnormality. This patient's information was entered into a reminder system with a target due date for their next mammogram. Electronically leila d by: Monika Guerrero DO 10/29/2024 04:07 PM EDT Dictated By: Monika Guerrero DO Signed By: <Electronically signed by Monika Guerrero DO in OV> 10/29/24 1607 DD/ 0815 TD/TT: 10/24/24 0830 Charger Operator: Reason For Referral No Information Medications Medication [...] Problem Status W/U Status Risk Notes Problem 84273668 Lymphocytosis (D72.820) Active confirmed Problem 583354307 Tubular adenoma (D36.9) Active confirmed Problem 726627713 Other specified menopausal and perimenopausal disorders (N95.8) Active confirmed Problem Disorder of lumbar disc (622865826) Lumbar disc disease (M51.9) Active confirmed Problem 582246128 Gastroesophageal reflux disease without esophagitis (K21.9) Active confirmed Problem 13090018 Essential hypertension (I10) Active confirmed Problem 238826305 Acquired hypothyroidism (E03.9) Active confirmed Problem 5136461 Prediabetes (R73.09) Active confirmed Problem 960346565 History of breas t cancer (Z85.3) Active confirmed Problem 8498277 Migraine with au ra and without status migrainosus, not intractable (G43.109) Active confirmed Problem 946739579 Lymphocele (I89.8) Active confirmed Problem Grief (406058189) Grief (F43.20) Active confirmed Problem 040759865 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 89 Sonny Llanes MD [address] [place] [id number] 08/12/2024 Sonny Llanes Acquired hypothyroidism E03.9 Sonny Llanes MD [address] [place] [address] [id number] 02/15/2024 Sonny Llanes Atypical chest pain R07.89 ; Annual physical exam Z00.00 ; Acute UTI N39.0 ; Essential hypertension I10 ; Acquired hypothyroidism E03.9 ; Prediabetes R73.09 and Depression screening Z13.31 Sonny Llanes MD [address] [place] [id number] 08/15/2024 Sonny Llanes Essential hypertensi on I10 and Acquired hypothyroidism E03.9 Sonny Llanes MD [address] [place] [id number] 02/08/2024 Sonny Llanes MD [address] [place] [address] [id number] 02/15/2024 Sonny Llanes MD [address] [place] [id number] 04/01/2024 Sonny Llanes Acquired hypothyroidism E03.9 Sonny Llanes MD [address] [place] [id number] 04/05/2024 Sonny Llanes Acquired hypothyroidism E03.9 Sonny Llanes MD [address] [place] [id number] 06/07/2024 Sonny Llanes Essential hypertensi on I10 Assessments Encounter Date Diagnosis (ICD Code) Assessment Notes Treatment Notes Treatment Clinical Notes Section Notes 08/12/2024 Acquired hypothyroidism (ICD-10 - E03.9) 02/15/2024 [...] E03.9) 06/07/2024 Essential hypertension (ICD-10 - I10) 02/22/2024 After-treatment (ICD-10 - Z51.89) 02/15/2024 Acute UTI (ICD-10 - N39.0) pending labs 08/15/2024 Acquired hypothyroidism (ICD-10 - E03.9) good tsh.will continue current regiment 02/15/2024 Essential hypertension (ICD-10 - I10) stable, at goal, will contnue current regiment 02/15/2024 Acquired hypothyroidism (ICD-10 - E03.9) stable, [...] Provider Name:Sonny Hartman ier, 02/13/2025 08:30:00 AM, [address] [place] [address], [address], [phone], Provider Name:Sonny Hartman ier, 02/20/2025 08:30:00 AM, [address] [place] [address], [place] [address], [place], [place], [id number], Insurance Providers Payer Name Payer Address Payer Phone Subscriber Number Group Number Insured Name Patient Relationship to Insured Coverage Start Date Coverage End Date [employer] [address] [place], [place] [id number] Renetta Walters Self - patient is the insured Medical (General) History Medical History History ICD Code herpes zoster 2009 colonoscopy 02/2008 hyperpla stic due in 2017 Dr. Romero; 01/28/18 colonoscopy w/Dr. Romero - repeat 2020: Colonoscopy 2020 due 5yrs ( 2025) [facility], Dr. Keena Callahan 01/28/18 - Dr. Romero fecal occult blood 2024 negative Surgical History Surgery Date(Month/Year) cholecystectomy hysterectomy, total with bilateral salpi fallon-oophorectomy (BSO) partial lt breast mastectomy 08/2016
--- OUTSIDE RECORDS SUMMARY | 2025-02-06 12:20 | XMS_ITS | Patient Health Record ---
Author Organization [facility] Address [address] [place] [address] Care Team Providers Care Television Audio Engineer Name Role Phone Sonny Llanes MD Primary Care Provider Mai Garcia Unavailable [phone] Allergies No Known Allergies Reason For Referral No Information Medications Medication SIG (Take, Route, Frequency, Duration) Notes Start Date End Date Status amLODIPine Besylate 5 MG TAKE 1 TABLET B Y MOUTH EVERY DAY Oral; Duration: 30 Days Active Irbesartan-hydroCHLOROthiazi de 300-12.5 MG TAKE 1 TABLET BY MOUTH EVERY DAY FOR 14 DAYS Oral; Duration: 14 Days Active Imitrex PRN Active Calcium Active Biotin 5000 Active ZyrTEC Allergy PRN Activ e vitamin D Active Levothyroxine Sodium 88 MCG 1 tablet in the morning on an empty stomach Orally Once a day Active Social History Tobacco Use: Social History Observation Description Date Details (start date - stop date) Never Smoker NA - NA Tobacco Use/Smoking Question Answer Notes Are you a: nonsmoker Additional Findings: Tobacco Non-User Aggressive non-smoker Alcohol Screen Question Answer Notes Did you have a drink contain ing alcohol in the past year? Yes How often did you have a dri nk containing alcohol in the past year? Monthly or less (1 point) Points 1 Interpretation Negative Tobacco use other than smoking: Question Answer Notes Are you an other tobacco user? No Problems Problem Type SNOMED Code ICD Code Onset Dates Problem Status W/U Status Risk Notes Problem Acquired hallux valgus (38345740) Hallux valgus (acquired), left foot (M20.12) Active confirmed Problem Acquired hallux valgus (84270867) Hallux valgus (acquired), right foot (M20.11) Active confirmed Plan Of Treatment Pending Test Test Name Order Date X ray : Foot, left 3V 11/28/2022 X ray : Foot, right 3V 11/28/2022 Insurance Providers Payer Name Payer Address Payer Phone Subscriber Number Group Number Insured Name Patient Relationship to Insured Coverage Start Date Coverage End Date [facility] [address] [place] [address] [id number] Contreras Self - patient is the insured Medical (General) History Medical History History ICD Code Back,Hip,and Knee pain Cancer covid-19 Gall bladder Headaches/Migraines High blood pressure Reflux ( GERD) Sciatica chronic sinusitis thyroid Measles Chicken pox Surgical History Surgery Date(Month/Year) tonsillectomy 1969 hysterectomy 1999 gall bladder 2000 bunionectomy L foot 2015
--- OUTSIDE RECORDS SUMMARY | 2025-02-06 12:20 | XMS_ITS | Clinical Summary ---
Author Organization [facility] Address [address] [place] [address] Phone Care Team Providers Care Visual Effects Artist Name Role Phone Sonny Llanes MD Primary Care Provider [phone] Allergies No known active allergies Medications amLODIPine [...] Description 11/07/2024 9:00 AM EDT Office Visit [facility] Hematology Oncology [address] [place] [address] Cadence Capone DO Malignant neoplasm of lower-outer quadrant of left breast of female, estrogen receptor positive ([facility] V24, [facility] V28) (Primary Dx) from Last 3 Months Surgical History Surgery Date Site/Laterality Comments CHOLECYSTECTOMY PROCEDURE:CHOLECYSTECTOMY TONSILLECTOMY PROCEDURE:TONSILLECTOMY HYSTERECTOMY PROCEDURE:HYSTERECTOMY OOPHORECTOMY PROCEDURE:OOPHORECTOMY BUNIONECTOMY PROCEDURE:BUNIONECTOMY Medical History Medical History Date Comments Hypertension DX:Hypertension GERD (gastroesophageal reflux disease) DX:GERD (gastroesophageal reflux disease) Disease of thyroid gland DX:Dise ase of thyroid gland Breast cancer ([facility] V24, [facility] V28) DX:Breast cancer (HCC) Heart murmur DX:Heart [...] Description 11/07/2025 9:00 AM EDT Office Visit [facility] Hematology Oncology [address] [place] [address] Cadence Capone, [address] [place] [address] Health Maintenance Due Date Last Done Comments DTaP,Tdap,and Td Vaccines (1 - Tdap) 09/01/1967 Zoster Vaccines (1 of 2) 09/01/1967 Pneumococcal Vaccine: 50+ Years (2 of 2 - PCV) 01/04/2020 01/03/2019 Cholesterol Screening (Lipid Panel) 05/01/2022 Falls Risk Assessment 05/01/2022 Hepatitis C Screening 05/01/2022 Social Influencers of Health Screening 05/01/2022 Depression Screening 05/25/2024 Hypertension/CHF/CAD Annual BMP Blood Test 11/07/2024 COVID-19 Vaccine (8 - Moderna risk 2023- season) 2025 02/24/2024, 02/24/2023, 03/17/2022, Additional history exists Influenza Vaccine (#1) 2025 , 02/12/2023, 02/03/2022, [...] Diagnosis Comments HISTORICAL IMAGING SCAN RESULT 11/07/2024 [facility] DEXA AXIAL SKELETON Routine 03/04/2023 10:03 AM EDT Other specified disorders of bone density and structure, multiple sites from Last 3 Months or Most Recently Relevant to Health Maintenance Results * HISTORICAL IMAGING SCAN RESULT (11/07/2024) Anatomical Region Laterality Modality Ultrasound us Provider Onbase MD BOX US PROCEDURES Final Resul t * [facility] DEXA AXIAL SKELETON (03/04/2023 10:03 AM EDT) Anatomical Region Laterality Modality Mammography 03/04/2023 8:47 AM EDT Narrative 03/04/2023 10:03 AM EDT [facility] Diagnostic Imaging Department [address] [place] [address] Patient: YAWYENNYRENETTA /Age/Sex: 1950 - 72 - F Unit#: [id number] Location/Status: SPDIMAM/REG CLI Mnemonic[facility] Ordering Physician: ELIER SILVA MD [facility] Dexa Axial Skeleton - 10/11/23 - 0923 [...] probability of hip fracture of 1.7%. Code 68663 Dictating Physician: VAIBHAV MUIR MD Electronically Signed by: VAIBHAV MUIR MD Dic Date/Time: 03/04/23 1001 Sign date/Time: 03/04/23 1003 Procedure Note Vaibhav Muir MD - 06/30/2023 [facility] Diagnostic Imaging Department [address] [place] [address] Patient: RENETTA WALTERS /Age/Sex: 1950 - 72 - F Unit#: [id number] [facility] Ordering Physician: ELIER SILVA MD [facility] Dexa Axial Skeleton - 03/04/23922 Report Status:Signed [...] density of the femurs bilaterally is 0.917 gm/hr5qyavf is 91% of that of young normals [...] probability of hip fracture of 1.7%. Code 41715 Dictating Physician: VAIBHAV MUIR MD Electronically Signed by: VAIBHAV MUIR MD Dic Date/Time: 03/04/23 1001 Sign date/Time: 03/04/23 1003 Elier Silva MD IMG BI PROCEDURES Final Result from Last 3 Months or Most Recently Relevant to Health Maintenance Insurance [facility] Care Teams Visual Effects Artist Relationship Specialty Start Date End Date Sonny Llanes MD [address] [place] [address] PCP - General Internal Medicine 12/24/16
== END 2025-02-06 10:13 | disposition home or self-care (01) ==
LOC: HO.HMGAL 09:56
PROVIDERS: PCP Internal Medicine; Visit Provider Registered Nurse Emergency
DX: J30.89 Other allergic rhinitis (principal)
CPT/HCPCS: 95117; 95165

== ENCOUNTER 2025-02-13 08:30 | Outpatient (REF) | payer MEDICARE, SELFPAY ==
--- OUTSIDE RECORDS SUMMARY | 2024-06-07 06:34 | XMS_ITS ---
Author Organization Sonny Llanes MD Address [address] [place] [phone] Care Team Providers Care Community Theater Actor Name Role Phone Sonny Llanes Primary Care Provider REASON FOR VISIT refill Medications Medication SIG (Take, Route, Frequency, Duration) Notes Start Date End Date Status Irbesartan-hydroCHLOROthia zide 300-12.5 MG 1 tablet Orally Once a day for 90 days Active Encounters Encounter Location Date Provider Diagnosis Sonny Llanes MD [address] [place] [phone] 06/07/2024 Sonny Llanes Essential hypertension I10 Assessments Encounter Date Diagnosis (ICD Code) Assessment Notes Treatment Notes Treatment Clinical Notes Section Notes 06/07/2024 Essential hypertension (ICD-10 - I10) Plan Of Treatment Medication Medication Name Sig Start Date Stop Date Notes Irbesartan-hydroCHLOROthiazi de 300-12.5 MG 1 tablet Orally Once a day for 90 days Next Appt Details Provider Name:Sonny Hartman ier, 02/20/2025 08:30:00 AM, 10 [facility], [place] [address], [place], [place], [phone], Progress Notes * Renetta WALTERS LDOB:[birth year] (73 yo F)Acc No.[id number]:06/07/2024 Patient: Victor Hugo Renetta geller :1950 A ge:73 Y S ex:Female Address:[address] [place] [address] , [place] [address] * Refills Refill Irbesartan-hydroCHLOROthiazide Tablet, 300-12.5 MG, Orally, 90 Tablet, 1 tablet, Once a day, 90 days, Refills=3 * true * Date: Generated for Ramsey copeland/Abilio/Justineitting on: 0 02/13/2025 12:30 PM EDT
--- OUTSIDE RECORDS SUMMARY | 2024-08-15 05:00 | XMS_ITS ---
Author Organization Sonny Llanes MD Address [address] [place] [phone] Care Team Providers Care Civil Preparedness Officer Name Role Phone Sonny Llanes Primary Care Provider [phone] Allergies No Known Allergies REASON FOR VISIT [...] Location Date Provider Diagnosis Sonny Llanes MD [address] [place] [address] [place] [phone] 08/15/2024 Sonny Llanes Essential hypertensi on I10 [...] Name:Sonny Hartman ier, 02/20/2025 08:30:00 AM, [address], [address], [place], [place], [phone], Progress Notes * Renetta WALTERS LDOB:[birth year] (73 yo F)Acc No.[id number]:08/15/2024 Progress Notes Patient: Renetta POTTER Provider: Cliff Llanes MD :1950 A ge:73 Y S ex:Female Date:08/15/2024 Address:[address] [place] [address] , [id number] Subjective: * Chief Complaints: * 6 MO [...] 0 08/15/2024 Generated for Ramsey copeland/Abilio/Justineitting on: 0 02/13/2025 12:29 PM EDT History and Physical Notes * HPI (History [...]
--- OUTSIDE RECORDS SUMMARY | 2025-02-13 04:30 | XMS_ITS ---
Author Organization Sonny Llanes MD Address [address] [place] [phone] Care Team Providers Care Morgue Technician Name Role Phone Sonny Llanes Primary Care Provider Results Component Value Reference Range Notes Complete Blood Count Auto Di ff (Not yet reviewed by provider) Interpretation: Performing Lab:[facility], [address] [place] [phone] Notes/Report: White Blood Count 6.1 4.8-10.8 X10*3/uL [...] NRBC Abs Auto 0.000 0.0-0.012 X10*3/uL Comprehensive [place]. Panel Fa st (Not yet reviewed by provider) Interpretation: Performing Lab:[facility], [address] [place] [phone] Notes/Report: Sodium 140 135-145 mmol/L Potassium 3.8 [...] Alkaline Phosphatase 42 39-117 U/L Lipid Panel (Not yet reviewe d by provider) Interpretation: Performing Lab:[address] [phone] Notes/Report: Triglycerides 163 <150 mg/dL Desirable Triglyceride: [...] with liver disease. TSH reflex Free T4 (Not yet reviewed by provider) Interpretation: Performing Lab:[address] [phone] Notes/Report: TSH reflex Free T4 0.73 0.32-4.0 uIU/mL Microalbumin, Random (Not ye t reviewed by provider) Interpretation: Performing Lab:[address] [phone] Notes/Report: Creatinine Urine 95.53 Microalbumin Urine < 5.0 Microalbum/Creatinine Ratio Ur TNP <30 ug/mg cr Unable to calculate albumin/creatinine ratio due to low microalbumin or creatinine result. UA ClnCatch+Micro w/rflx Cul t (Not yet reviewed by provider) Interpretation: Performing Lab:[address] [phone] Notes/Report: Urine, Clean Catch Color Urine Yellow Appearance Urine Clear PH 5.5 5.0-9.0 Glucose Urine UA Negative Negative mg/dL Urine Blood Negative Negative Specific [place] - Urine 1.015 1.005-1.025 Urine Protein Negative Neg-Trace mg/dL Urine Ketones Negative Negative mg/dL Nitrite Urine Negative Negative Leukocyte Esterase Urine Trace Negative RBC Urine 0-2 0-2 /HPF WBC Urine 0-5 0-5 /HPF Squamous Epithelial Cell Urine 11-20 0-2 /HPF Bacteria Urine None Seen None Seen Hyaline Casts Urine 0-2 0-2 /LPF Hemoglobin A1c Reviewed date:02/13/2025 10:53:20 AM Interpretation: Performing Lab:[facility], [address] [place] [phone] Notes/Report: Hemoglobin A1c % 5.6 <6.0 % [...] average glucose, using the formula of the F8T-Olyqrev Average Glucose study (ADAG), Diabetes Care, Vol.31,#8, Dec. 2007 REASON FOR VISIT FASTING LABS Immunizations Vaccine Route Administration Date Status Comme nts Influenza High Dose IM Intramuscular 02/13/2025 Administer ed Encounters Encounter Location Date Provider Diagnosis Sonny Llanes MD [address] [place] [address] [address] [place], [place] [phone] 02/13/2025 Sonny Llanes Blood tests for routine general physical examination Z00.00 ; Essential hypertension I10 ; Acquired hypothyroidism E03.9 ; Prediabetes R73.09 ; Lymphocytosis D72.820 and Encounter for administration of vaccine Z23 Assessments Encounter Date Diagnosis (ICD Code) Assessment Notes Treatment Notes Treatment Clinical Notes Section Notes 02/13/2025 Blood tests for routine general physical examination (ICD-10 - Z00.00) oo 02/13/2025 Essential hypertension (ICD-10 - I10) oo 02/13/2025 Acquired hypothyroidism (ICD-10 - E03.9) oo 02/13/2025 Prediabetes (ICD-10 - R73.09) oo 02/13/2025 Lymphocytosis (ICD-10 - D72.820) oo 02/13/2025 Encounter for administration of vaccine (ICD-10 - Z23) oo Plan Of Treatment Pending Test Test Name Order Date Complete Blood Count Auto Diff Comprehensive [place]. Panel Fast Lipid Panel 02/13/2025 TSH reflex Free T4 02/13/2025 Microalbumin, Random 02/13/2025 UA ClnCatch+Micro w/rflx Cult 02/13/2025 Next Appt Details Provider Name:Sonny Hartman ier, 02/20/2025 08:30:00 AM, [address] [place] [address], [address], [place], [place], [phone], Progress Notes * Renetta WALTERS LDOB:[birth year] (74 yo F)Acc No.[id number]:02/13/2025 Progress Note Patient: Renetta POTTER Provider: Cliff Llanes MD :1950 A ge:74 Y S ex:Female Date:02/13/2025 Address:[address] [place], [place] [phone] Subjective: * Chief Complaints: * 1 . FASTING LABS. * Medical History: Objective: * Vitals: Assessment: * Assessment: 1. B lood tests for routine general physical examination - Z00.00 (Primary) 2 .?Essential hypertension - I10 3 . A cquired hypothyroidism - E03.9 ? 4 . P rediabetes - R73.09 5 . L ymphocytosis - D72.820 6. E ncounter for administration of vaccine - Z23 oo Plan: * Treatment: 2. E ssential hypertension L AB: Complete Blood Count Auto Diff (Collection Date & Time - 02/13/2025 08:30 AM) L AB: Comprehensive [place]. Panel Fast (Collection Date & Time - [...] - 02/13/2025 08:30 AM) L AB: Comprehensive [place]. Panel Fast (Collection Date & Time - [...] - 02/13/2025 08:30 AM) L AB: Comprehensive [place]. Panel Fast (Collection Date & Time - [...] - 02/13/2025 08:30 AM) L AB: Comprehensive [place]. Panel Fast (Collection Date & Time - [...] * Procedure Codes: 3 6415 VENIPUNCT, ROUTINE*, 42705 FLU VACC PRSV FREE INC ANTIG, 41120 IMMUNIZATION ADMIN * * The named appointment provid er may or may not be the originator of this progress note, and it is not deemed complete until electronically signed by the appointment provider. Sign off status: Pending * Provider: Cliff Llanes MD Date: 0 02/13/2025 Generated for Ramsey copeland/Abilio/Justineitting on: 02/13/2025 12:30 PM EDT
[2025-02-13 10:12] LABS: MANUAL DIFF FLAG NO
[2025-02-13 10:26] LABS: Appearance Urine Clear; Glucose Urine UA Negative (Negative); PH 5.5 (5.0-9.0); Specific Gravity - Urine 1.015 (1.005-1.025); UMIC TRIGGER UACC YES
[2025-02-13 10:27] LABS: Hematocrit 44.6 % (37.0-47.0); Hemoglobin 15.4 g/dl (12.0-16.0); Imm Gran Abs Auto 0.01 X10*3/uL (0.00-0.03); Imm Gran Pct Auto 0.2 % (0.0-0.4); Lymphocytes Absolute Auto 2.1 X10*3/uL (1.2-4.9); Mean Corpuscular HGB Conc 34.5 g/dl (31.0-35.0); Mean Corpuscular Hemoglobin 30.2 pg (27.0-33.0); Mean Corpuscular Volume 87.5 fL (80.0-98.0); NRBC Abs Auto 0.000 X10*3/uL (0.0-0.012); NRBC Pct Auto 0.0 /100WBC (0.0-0.2); Platelet Count 254 X10*3/uL (160-400); Red Blood Count 5.10 X10*6/uL (4.20-5.50); White Blood Count 6.1 X10*3/uL (4.8-10.8)
[2025-02-13 10:42] LABS: Hemoglobin A1C 153.1907 umol/L; Total Hemoglobin (HGBA1C) 4014.1607 umol/L
[2025-02-13 11:16] LABS: Alanine Aminotransferase 25 U/L (0-31); Albumin Level 4.2 g/dL (3.5-5.0); Alkaline Phosphatase 42 U/L (39-117); Anion Gap 12 (12-20); Aspartate Amino Transferase 30 U/L (5-31); Blood Urea Nitrogen 16 mg/dL (9-16); Calcium 9.0 mg/dL (8.4-10.2); Carbon Dioxide 25 mmol/L (22-29); Chloride 107 mmol/L (96-108); Cholesterol 218 mg/dL (<200); Estimated Glomerular Filt Rate 54; HDL Cholesterol 62 mg/dL (>40); Potassium 3.8 mmol/L (3.3-5.1); Sodium 140 mmol/L (135-145); Total Protein 6.7 g/dL (6.5-8.0); Triglycerides 163 mg/dL (<150)
--- OUTSIDE RECORDS SUMMARY | 2025-02-13 12:30 | XMS_ITS | Clinical Summary ---
Author Organization [facility] Address [address] [place] [address] Phone Care Team Providers Care Knockout Man Name Role Phone Sonny Llanes MD Primary Care Provider [phone] Allergies No known active allergies Medications amLODIPine [...] female breast (CMS/HCC V24, CMS/HCC V28) 12/31/2016 Surgical History Surgery Date Site/Laterality Comments CHOLECYSTECTOMY PROCEDURE:CHOLECYSTECTOMY TONSILLECTOMY PROCEDURE:TONSILLECTOMY HYSTERECTOMY PROCEDURE:HYSTERECTOMY OOPHORECTOMY PROCEDURE:OOPHORECTOMY BUNIONECTOMY PROCEDURE:BUNIONECTOMY Medical History Medical History Date Comments Hypertension DX:Hypertension GERD (gastroesophageal reflux disease) DX:GERD (gastroesophageal reflux disease) Disease of thyroid gland DX:Dise ase of thyroid gland Breast cancer (CMS/HCC V24, CMS/HCC V28) DX:Breast cancer (HCC) Heart murmur DX:Heart [...] Description 11/07/2025 9:00 AM EDT Office Visit [facility] Hematology Oncology [address] [place] [phone] Cadence Capone, [address] [place] [address] Health Maintenance Due Date Last Done Comments [...] 11/07/2024 COVID-19 Vaccine (8 - Moderna risk season) 2025 02/24/2024, 02/24/2023, 03/17/2022, Additional history [...] Procedure Name Priority Date/Time Associated Diagnosis Comments SUZANNE DEXA AXIAL SKELETON Routine 03/04/2023 10:03 AM EDT Other specified disorders of bone density and structure, multiple sites from Last 3 Months or Most Recently Relevant to Health Maintenance Results * [place] DEXA AXIAL SKELETON (03/04/2023 10:03 AM EDT) Anatomical Region Laterality Modality Mammography 03/04/2023 8:47 AM EDT Narrative 03/04/2023 10:03 AM EDT [facility] Diagnostic Imaging Department [address] [place] [address] Patient: RENETTA WALTERS /Age/Sex: 1950 - 72 - F Unit#: [id number] [facility] Ordering Physician: ELIER SILVA MD [facility] Dexa Axial Skeleton - 03/04/23922 [...] probability of hip fracture of 1.7%. Code 26959 Dictating Physician: VAIBHAV MUIR MD Electronically Signed by: VAIBHAV MUIR MD Dic Date/Time: 03/04/23 100 Sign date/Time: 03/04/23 100 Procedure Note Vaibhav Muir MD - 06/30/2023 [facility] Diagnostic Imaging Department [address] [place] [address] Patient: RENETTA WALTERS/Age/Sex: 1950 - 72 - F Unit#: [id number] Location/Status: [facility] CLI Mnemonic/Ordering Site[facility] Ordering Physician: ELIER SILVA MD Suzanne Dexa Axial Skeleton - 03/04/23922 Report Status:Signed [...] density of the femurs bilaterally is 0.917 gm/og3dhsxl is 91% of that of young normals [...] probability of hip fracture of 1.7%. Code 66817 Dictating Physician: VAIBHAV MUIR MD Electronically Signed by: VAIBHAV MUIR MD Dic Date/Time: 03/04/23 1001 Sign date/Time: 03/04/23 1003 Elier Silva MD IMG BI PROCEDURES Final Result from Last 3 Months or Most Recently Relevant to Health Maintenance Insurance [employer] ([place]) Care Teams Knockout Man Relationship Specialty Start Date End Date Sonny Llanes MD [address] [place] [address] [place] [address] PCP - General Internal Medicine 12/24/16
--- OUTSIDE RECORDS SUMMARY | 2025-02-13 12:30 | XMS_ITS | Patient Health Record ---
Author Organization [facility] Address [address] [place] [address] Care Team Providers Care Splicing Machine Operator Automatic Name Role Phone Mario Alberto GARCIA, Sonny Primary Care Provider Shikha Chapman Unavailable [phone] Allergies No Known Allergies Reason For Referral [...] Problem Status W/U Status Risk Notes Problem 156581764 Encounter for screening for malignant neoplasm of colon (Z12.11) Active confirmed Problem 973953421 History of adenomatous polyp of colon (Z86.010) Active confirmed Problem 214397798989619 Preprocedural examination (Z01.818) Active confirmed Problem 932824532 Gastroesophageal reflux disease, esophagitis presence not specified (K21.9) Active confirmed Problem Diverticulosis of colon (378030831) Diverticulosis of colon (K57.30) Active confirmed Plan Of Treatment Future Test Test Name Order Date UPPER GI ENDOSCOPY 12/16/2017 COLONOSCOPY 12/16/2017 COLONOSCOPY 02/21/2021 Insurance Providers Payer Name Payer Address Payer Phone Subscriber Number Group Number Insured Name Patient Relationship to Insured Coverage Start Date Coverage End Date MEDICARE OF [place] [address] [facility] [address] [id number] KENDRA SOTO Self - patient is the insured [employer] Workers Benefits [address] [place] [address] [id number] KENDRA SOTO Self - patient is the insured Medical (General) History Medical History History ICD Code Breast cancer 07/2016--left--surgery as b elow Pneumonia 2016 Denies [place],DM,CVA,Lung disease,renal dise ase Seasonal allergies HTN GERD--EGD [...]
--- OUTSIDE RECORDS SUMMARY | 2025-02-13 12:30 | XMS_ITS | Clinical Summary ---
Author Organization [facility] Address [address] [facility] [address] [place] [address] Phone Care Team Providers Care Library Director Name Role Phone Sonny Llanes MD Primary [...] Insurance MEDICARE PART A & B [facility] MEDICARE PART A & B [facility] MEDICARE PART A & B MEDICARE PART A & B MEDICARE PART A & [place] [address] [address] MEDICARE PART A & B MEDICARE PART A & B Member Subscriber Plan / Payer (Ef fective 2013-Present) Name:Renetta Walters Member ID:[id number] Relation to Subscriber:Self Name:Renetta Walters Subscriber ID:[id number] Payer ID:[id number] Group ID:Not on file Type:Medicare Address: [facility] [employer] [facility] [address] [place] [address] [place] [address] MEDICARE PART A & B Member Subscriber Plan / Payer (Ef fective 2013-Present) Name:Renetta Walters Member ID:[id number] Relation to Subscriber:Self Name:Renetta Walters Subscriber ID:[id number] Payer ID:[id number] Group ID:Not on file Type:Medicare [facility] [address] [facility] MEDICARE PART A & B [facility] Care Teams Library Director Relationship Specialty Start Date End Date Sonny Llanes MD [address] [place] [address] [place] [address] PCP - General 05/28/17 Additional Source Comments The information contained in this document represents components of the legal health record. It is not the complete legal health record.[facility]
--- OUTSIDE RECORDS SUMMARY | 2025-02-13 12:30 | XMS_ITS | Patient Health Record ---
Author Organization Sonny Llanes MD Address [address] [place] [phone] Care Team Providers Care Emergency Manager Name Role Phone Sonny Llanes Primary Care Provider [phone] Allergies No Known Allergies Results Component Value Reference Range Notes UA ClnCatch+Micro w/rflx Cul t Reviewed date:02/22/2024 12:29:26 PM Interpretation: Performing Lab:[facility], [address] [place] [phone] Notes/Report: Urine, Clean Catch Color Urine Yellow Appearance Urine Clear PH 6.0 5.0-9.0 Glucose Urine UA Negative Negative mg/dL Urine Blood Negative Negative Specific [place] - Urine 1.015 1.005-1.025 Urine Protein Negative Neg-Trace mg/dL Urine Ketones Negative Negative mg/dL Nitrite Urine Negative Negative Leukocyte Esterase Urine Trace Negative RBC Urine 0-2 0-2 /HPF WBC Urine 0-5 0-5 /HPF Squamous Epithelial Cell Urine 0-2 0-2 /HPF Bacteria Urine None Seen None Seen Hyaline Casts Urine 0-2 0-2 /LPF TSH reflex Free T4 Reviewed date:08/12/2024 12:55:39 PM Interpretation: Performing Lab:[facility], [address] [place] [phone] Notes/Report: TSH reflex Free T4 0.91 0.32-4.0 uIU/mL Complete Blood Count Auto Di ff (Not yet reviewed by provider) Interpretation: Performing Lab:[facility], [address] [place] [phone] Notes/Report: White Blood Count 6.1 4.8-10.8 X10*3/uL [...] NRBC Abs Auto 0.000 0.0-0.012 X10*3/uL Comprehensive [place]. Panel Fa st (Not yet reviewed by provider) Interpretation: Performing Lab:[facility], [address] [place] [phone] Notes/Report: Sodium 140 135-145 mmol/L Potassium 3.8 [...] yet reviewe d by provider) Interpretation: Performing Lab:[facility], [address] [place] [phone] Notes/Report: Triglycerides 163 <150 mg/dL Desirable Triglyceride: [...] (Not yet reviewed by provider) Interpretation: Performing Lab:[address] [phone] Notes/Report: TSH reflex Free T4 0.73 0.32-4.0 uIU/mL Microalbumin, Random (Not ye t reviewed by provider) Interpretation: Performing Lab:[address] [phone] Notes/Report: Creatinine Urine 95.53 Microalbumin Urine < 5.0 Microalbum/Creatinine Ratio Ur TNP <30 ug/mg cr Unable to calculate albumin/creatinine ratio due to low microalbumin or creatinine result. UA ClnCatch+Micro w/rflx Cul t (Not yet reviewed by provider) Interpretation: Performing Lab:[address] [phone] Notes/Report: Urine, Clean Catch Color Urine Yellow Appearance Urine Clear PH 5.5 5.0-9.0 Glucose Urine UA Negative Negative mg/dL Urine Blood Negative Negative Specific [place] - Urine 1.015 1.005-1.025 Urine Protein Negative Neg-Trace mg/dL Urine Ketones Negative Negative mg/dL Nitrite Urine Negative Negative Leukocyte Esterase Urine Trace Negative RBC Urine 0-2 0-2 /HPF WBC Urine 0-5 0-5 /HPF Squamous Epithelial Cell Urine 11-20 0-2 /HPF Bacteria Urine None Seen None Seen Hyaline Casts Urine 0-2 0-2 /LPF Hemoglobin A1c Reviewed date:02/13/2025 10:53:20 AM Interpretation: Performing Lab:[facility], [address] [place] [phone] Notes/Report: Hemoglobin A1c % 5.6 <6.0 % [...] average glucose, using the formula of the Q5W-Xfanwqs Average Glucose study (ADAG), Diabetes Care, Vol.31,#8, 2007 Jimena Treviño Reviewed date:08/12/2024 12:23:17 PM Interpretation: Performing Lab:[facility], [address] [place] [address], [place] [address] Notes/Report: Jimena Treviño See Note Specimen held untested for 24 hours; Call to request Chemistry testing. MM tomosynthesis screening B I Reviewed date:10/31/2024 05:04:11 PM Interpretation: Performing Lab: Notes/Report: [facility] [address] [place] [address] Mammography Report Signed Patient: Renetta Walters MR#: [id number] : 1950 Acct:[id number] Age/Sex: 74 / F ADM Date: 10/24/24 Loc: HO.MAMMO Attending Dr: Sonny Llanes MD Ordering Physician: Ivan Sanders MD Results: 2Beni gn Findings Date of Service: 10/24/24 Follow Up: [facility] Procedure(s): MM tomosynthesis screening BI Accession Number(s): [id number] cc: Sonny Llanes MD; CHERY SILVA MD; [...] 10/29/24 1607 DD/ 0815 TD/TT: 10/24/24 0830 Compensation Coordinator: [place] [facility] [address] [place] [address] Mammography Report Signed Patient: Renetta Walters MR#: [id number] : 1950 Acct:[id number] Age/Sex: 74 / F ADM Date: 10/24/24 Loc: HO.MAMMO Attending Dr: Sonny Llanes MD Ordering Physician: Ivan Sanders MD Results: 2Beni gn Findings Date of Service: 10/24/24 Follow Up: 1 Year From [facility] Mammogram Procedure(s): MM tomosynthesis screening BI Accession Number(s): [id number] cc: Sonny Llanes MD; CHERY SILVA MD; [...] 10/29/24 1607 DD/ 0815 TD/TT: 10/24/24 0830 Compensation Coordinator: Jimena Treviño Reviewed date:02/13/2025 10:53:03 AM Interpretation: Performing Lab:[facility], [address] [place] [phone] Notes/Report: Jimena Treviño See Note Specimen held [...] 10/20/2013 Administered Flu Vaccine Unknown 02/24/2014 Administered Elijahgrjodi's Prevnar 13 IM Intramuscular 11/09/2014 Administered TDaP [...] High Dose IM Intramuscular 02/05/2024 Administer ed Influenza High Dose IM Intramuscular 02/13/2025 Administer ed Social History Tobacco Use: Social [...] Problem Status W/U Status Risk Notes Problem 83266306 Lymphocytosis (D72.820) Active confirmed Problem 208589604 Tubular adenoma (D36.9) Active confirmed Problem 800598027 Other specified menopausal and perimenopausal disorders (N95.8) Active confirmed Problem Disorder of lumbar disc (853111677) Lumbar disc disease (M51.9) Active confirmed Problem 286218604 Gastroesophageal reflux disease without esophagitis (K21.9) Active confirmed Problem 62993195 Essential hypertension (I10) Active confirmed Problem 942231735 Acquired hypothyroidism (E03.9) Active confirmed Problem 9368630 Prediabetes (R73.09) Active confirmed Problem 403208010 History of breas t cancer (Z85.3) Active confirmed Problem 1644781 Migraine with au ra and without status migrainosus, not intractable (G43.109) Active confirmed Problem 901843111 Lymphocele (I89.8) Active confirmed Problem Grief (147862398) Grief (F43.20) Active confirmed Problem 942392588 Arthritis of kne e (M17.10) Active confirmed Problem 1150744446280 Wrist arthritis (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 89 Sonny Llanes MD [address] [place] [id number] 08/12/2024 Sonny Llanes Acquired hypothyroidism E03.9 [address]ny Ll[address] MD [address] [place] [id number] 02/13/2025 Sonny Llanes Blood tests for routine general physical examination Z00.00 ; Essential hypertension I10 ; Acquired hypothyroidism E03.9 ; Prediabetes R73.09 ; Lymphocytosis D72.820 and Encounter for administration of vaccine Z23 Sonny Llanes MD [address] [place] [id number] 02/15/2024 Sonny Llanes Atypical chest pain R07.89 ; Annual physical exam Z00.00 ; Acute UTI N39.0 ; Essential hypertension I10 ; Acquired hypothyroidism E03.9 ; Prediabetes R73.09 and Depression screening Z13.31 Sonny Llanes MD [address] [place] [id number] 08/15/2024 Sonny Llanes Essential hypertensi on I10 and Acquired hypothyroidism E03.9 Sonny Llanes MD [address] [place] [id number] 02/15/2024 Sonny Llanes MD [address] [place] [id number] 04/01/2024 Sonny Llanes Acquired hypothyroidism E03.9 Sonny Llanes MD [address] [place] [id number] 04/05/2024 Sonny Llanes Acquired hypothyroidism E03.9 Sonny Llanes MD [address] [place] [address] [id number] 06/07/2024 Sonny Llanes Essential hypertensi on I10 Assessments Encounter Date Diagnosis (ICD Code) Assessment Notes Treatment Notes Treatment Clinical Notes Section Notes 08/12/2024 Acquired hypothyroidism (ICD-10 - E03.9) 02/13/2025 Blood tests for routine general physical examination (ICD-10 - Z00.00) oo 02/13/2025 Essential hypertension (ICD-10 - I10) oo 02/15/2024 Atypical chest pain (ICD-10 - R07.89) [...] - I10) 02/22/2024 After-treatment (ICD-10 - Z51.89) 02/13/2025 Acquired hypothyroidism (ICD-10 - E03.9) oo 02/15/2024 Acute UTI (ICD-10 - N39.0) pending labs 08/15/2024 Acquired hypothyroidism (ICD-10 - E03.9) good tsh.will continue current regiment 02/13/2025 Prediabetes (ICD-10 - R73.09) oo 02/15/2024 Essential hypertension (ICD-10 - I10) stable, at goal, will contnue current regiment 02/13/2025 Lymphocytosis (ICD-10 - D72.820) oo 02/15/2024 Acquired hypothyroidism (ICD-10 - E03.9) stable, at goal, will continue current regiment 02/13/2025 Encounter for administration of vaccine (ICD-10 - Z23) oo 02/15/2024 Prediabetes (ICD-10 - R73.09) stable, no need for medication at this time 02/15/2024 Depression screening (ICD-10 - Z13.31) negative screen 08/15/2024 Other depression well controlled Plan Of Treatment Pending Test Test Name Order Date Electrocardiogram (EKG) 12/09/2016 Electrocardiogram (EKG) 01/06/2019 Electrocardiogram (EKG) 11/22/2015 BONE DENSITY DEXA 10/14/2012 US ABD 01/13/2022 Stress Test 02/15/2024 US BREAST LEFT 08/21/2016 Complete Blood Count Auto Diff 5 Comprehensive [place]. Panel Fast 5 Lipid Panel 02/13/2025 TSH reflex Free T4 02/13/2025 Microalbumin, Random 02/13/2025 UA ClnCatch+Micro w/rflx Cult 02/13/2025 Next Appt Details Provider Name:Sonny ross, 02/20/2025 08:30:00 AM, [address] [place] [address], [place] [address], [place], [place], [phone], Insurance Providers Payer Name Payer Address Payer Phone Subscriber Number Group Number Insured Name Patient Relationship to Insured Coverage Start Date Coverage End Date [employer] [address] [place], [place] [id number] Renetta Walters Self - patient is the insured Medical (General) History Medical History History ICD Code herpes zoster 2009 colonoscopy 02/2008 hyperpla stic due in 2017 Dr. Romero; 01/28/18 colonoscopy w/Dr. Romero - repeat 2020: Colonoscopy 2020 due 5yrs ( 2025) [facility] MAN, Dr. Brink Endo 01/28/18 - Dr. Romero fecal occult blood 2024 negative Surgical History Surgery Date(Month/Year) cholecystectomy hysterectomy, total with bilateral salpi fallon-oophorectomy (BSO) partial lt breast mastectomy 08/2016
--- OUTSIDE RECORDS SUMMARY | 2025-02-13 12:30 | XMS_ITS | Encounter Summary ---
Author Organization [facility] Address [address] [facility] [address] [place] [address] Phone Care Team Providers Care Band Sawmill Operator Name Role Phone Sonny Llanes MD Primary Care Provider Encounter Details Date Type Department Care Team (Latest Contact Info) Description 03/29/2024 Ancillary Orders [facility], X-Ray - [address] [address] Mary Pressley, FINANCIAL ADVISOR [address] [place] [phone] [email or web address] Bilateral primary osteoarthritis of knee (Primary Dx) [...] clinician's provided indication for this examination in [facility]: Pain COMPARISON: None FINDINGS: Left knee: [...] the lateral femoral tibialcompartments us Mary Pressley FINANCIAL ADVISOR IMG XR LOWER EXTREMITY Final Res ult documented in this encounter Visit Diagnoses Diagnosis Bilateral primary osteoarthritis of knee- Primary Bilateral primary osteoarthritis of knee documented in this encounter Care Teams Band Sawmill Operator Relationship Specialty Start Date End Date Sonny Llanes MD [address] [place] [address] Dr [place], [place] [address] PCP - General 05/28/17 documented as of this encounter Additional Source Comments The information contained in this document represents components of the legal health record. It is not the complete legal health record.[facility]
--- OUTSIDE RECORDS SUMMARY | 2025-02-13 12:30 | XMS_ITS | Patient Health Record ---
Author Organization [facility] Address [address] [place] [address] Care Team Providers Care Accounts Receivable Coordinator Name Role Phone Sonny Llanes MD Primary Care Provider Mai Garcia Unavailable [phone] Allergies No Known Allergies Reason For Referral [...] Status Risk Notes Problem Acquired hallux valgus (85265710) Hallux valgus (acquired), left foot (M20.12) Active confirmed Problem Acquired hallux valgus (32732957) Hallux valgus (acquired), right foot (M20.11) Active confirmed Plan Of Treatment Pending Test Test Name Order Date X ray : Foot, left 3V 11/28/2022 X ray : Foot, right 3V 11/28/2022 Insurance Providers Payer Name Payer Address Payer Phone Subscriber Number Group Number Insured Name Patient Relationship to Insured Coverage Start Date Coverage End Date [employer] [facility] [address] [place] [address] [id number] Contreras Self - patient is the insured Medical (General) History Medical History History ICD Code Back,Hip,and Knee pain Cancer covid-19 Gall bladder Headaches/Migraines High blood pressure Reflux ( GERD) Sciatica chronic sinusitis thyroid Measles Chicken pox Surgical History Surgery Date(Month/Year) tonsillectomy 1969 hysterectomy 1999 gall bladder 2000 bunionectomy L foot 2015
--- OUTSIDE RECORDS SUMMARY | 2025-02-13 12:30 | XMS_ITS | Clinical Summary ---
Author Organization [facility] Address [address] [place] [address] Care Team Providers Care Resource Forester Name Role Phone Sonny Llanes MD Primary Care Provider [phone] Allergies No known active allergies Medications Medication [...] age to complete this topic Care Teams Resource Forester Relationship Specialty Start Date End Date Sonny Llanes MD [address] [place] [phone] PCP - General Internal Medicine 12/24/16
== END 2025-02-13 08:31 | disposition home or self-care (01) ==
LOC: HO.LNP 08:30
PROVIDERS: Visit Provider Internal Medicine
DX: Z00.00 Encounter for general adult medical examination without abnormal findings (principal); I10 Essential (primary) hypertension; E03.9 Hypothyroidism, unspecified; R73.09 Other abnormal glucose; D72.820 Lymphocytosis (symptomatic)
CPT/HCPCS: 80053; 80061; 81001; 82043; 82570; 83036; 84443; 85025

== ENCOUNTER 2025-03-13 10:23 | Outpatient (AMB) | payer MEDICARE, SELFPAY ==
--- OUTSIDE RECORDS SUMMARY | 2025-03-13 12:04 | XMS_ITS | Clinical Summary ---
Author Organization [facility] Address [address] [place] [address] Care Team Providers Care Supply Person Name Role Phone Sonny Llanes MD Primary Care Provider [phone] Allergies No known active allergies Medications Medication [...] age to complete this topic Care Teams Supply Person Relationship Specialty Start Date End Date Sonny Llanes MD [address] [place] [phone] PCP - General Internal Medicine 12/24/16
--- OUTSIDE RECORDS SUMMARY | 2025-03-13 12:04 | XMS_ITS | Encounter Summary ---
Author Organization [facility] Address [address] [facility] [address] [place] [phone] Phone Care Team Providers Care Crab Steamer Name Role Phone Sonny Llanes MD Primary Care Provider Encounter Details Date Type Department Care Team (Latest Contact Info) Description 03/29/2024 Ancillary Orders [facility], X-Ray - [address] [address] Mary Pressley, PLASTICS ENGINEERING TEACHER [address] [place] [phone] [email or web address] Bilateral primary osteoarthritis of knee (Primary Dx) [...] clinician's provided indication for this examination in [facility]: Pain COMPARISON: None FINDINGS: Left knee: No [...] the lateral femoral tibialcompartments us Mary Pressley PLASTICS ENGINEERING TEACHER IMG XR LOWER EXTREMITY Final Res ult documented in this encounter Visit Diagnoses Diagnosis Bilateral primary osteoarthritis of knee- Primary Bilateral primary osteoarthritis of knee documented in this encounter Care Teams Crab Steamer Relationship Specialty Start Date End Date Sonny Llanes MD [address] [place] [address] Dr [place], [place] [address] PCP - General 05/28/17 documented as of this encounter Additional Source Comments The information contained in this document represents components of the legal health record. It is not the complete legal health record.[facility]
--- OUTSIDE RECORDS SUMMARY | 2025-03-13 12:05 | XMS_ITS | Clinical Summary ---
Author Organization [facility] Address [address] [place] [address] Phone Care Team Providers Care General Production Worker Name Role Phone Sonny Llanes MD Primary Care Provider [phone] Allergies No known active allergies Medications amLODIPine [...] Description 11/07/2025 9:00 AM EDT Office Visit [facility] Hematology Oncology [address] [place] [phone] Cadence Capone, [address] [place] [address] Health Maintenance Due Date Last Done Comments [...] Recently Relevant to Health Maintenance Results * [facility] DEXA AXIAL SKELETON (03/04/2023 10:03 AM EDT) Anatomical Region Laterality Modality Mammography 03/04/2023 8:47 AM EDT Narrative 03/04/2023 10:03 AM EDT [facility] Diagnostic Imaging Department [address] [place] [address] Patient: RENETTA WALTERS /Age/Sex: 1950 - 72 - F Unit#: [id number] [facility] Ordering Physician: ELIER SILVA MD [facility] Dexa Axial Skeleton - 03/04/[address]22 Report Status:Signed [...] probability of hip fracture of 1.7%. Code 42787 Dictating Physician: VAIBHAV MUIR MD Electronically Signed by: VAIBHAV MUIR MD Dic Date/Time: 03/04/23 100 Sign date/Time: 03/04/23 100 Procedure Note Vaibhav Muir MD - 06/30/2023 [facility] Diagnostic Imaging Department [address] [place] [address] Patient: RENETTA WALTERS/Age/Sex: 1950 - 72 - F Unit#: [id number] Location/Status: [facility]IMA/REG CLI [facility]em[facility] Ordering Physician: ELIER SILVA MD [...] density of the femurs bilaterally is 0.917 gm/dp1tqhla is 91% of that of young normals [...] probability of hip fracture of 1.7%. Code 44370 Dictating Physician: VAIBHAV MUIR MD Electronically Signed by: VAIBHAV MUIR MD Dic Date/Time: 03/04/23 1001 Sign date/Time: 03/04/23 1003 Elier Silva MD IMG BI PROCEDURES Final Result from Last 3 Months or Most Recently Relevant to Health Maintenance Insurance [place]) Care Teams General Production Worker Relationship Specialty Start Date End Date Sonny Llanes MD [address] [place] [address] [place] [id number] PCP - General Internal Medicine 12/24/16
--- OUTSIDE RECORDS SUMMARY | 2025-03-13 12:05 | XMS_ITS | Clinical Summary ---
Author Organization [facility] Address [address] [facility] [address] [place] [address] Phone Care Team Providers Care Dehydrator Name Role Phone Sonny Llanes MD Primary [...] file Insurance MEDICARE PART A & B [facility] MEDICARE PART A & B [facility] MEDICARE PART A & B MEDICARE PART A & B MEDICARE PART A & [place] [address] [address] [address] MEDICARE PART A & B MEDICARE PART A & B Member Subscriber Plan / Payer (Ef fective 2013-Present) Name:Renetta Walters Member ID:[id number] Relation to Subscriber:Self Name:Renetta Walters Subscriber ID:[id number] Payer ID:[id number] Group ID:Not on file Type:Medicare Address: [facility] [employer] [facility] [address] [place] [address] [place] [address] MEDICARE PART A & B Member Subscriber Plan / Payer (Ef fective 2013-Present) Name:Renetta Walters Member ID:[id number] Relation to Subscriber:Self Name:Renetta Walters Subscriber ID:[id number] Payer ID:[id number] Group ID:Not on file Type:Medicare Address: [facility] [address] [facility] MEDICARE PART A & B [facility] Care Teams Dehydrator Relationship Specialty Start Date End Date Sonny Llanes MD [address] [place] [address] [place] [address] PCP - General 05/28/17 Additional Source Comments The information contained in this document represents components of the legal health record. It is not the complete legal health record.[facility]
== END 2025-03-13 10:23 | disposition home or self-care (01) ==
LOC: HO.HMGAL 10:23
PROVIDERS: PCP Internal Medicine; Visit Provider Registered Nurse Emergency
DX: J30.89 Other allergic rhinitis (principal)
CPT/HCPCS: 95117; 95165

== ENCOUNTER 2025-04-10 10:35 | Outpatient (AMB) | payer MEDICARE, SELFPAY | END 2025-04-10 10:35 | disposition home or self-care (01) | LOC: HO.HMGAL 10:35 | PROVIDERS: PCP Internal Medicine; Visit Provider Registered Nurse Emergency | DX: J30.89 Other allergic rhinitis (principal) | CPT/HCPCS: 95117; 95165 ==

== ENCOUNTER 2025-05-10 10:02 | Outpatient (AMB) | payer MEDICARE, SELFPAY ==
--- OUTSIDE RECORDS SUMMARY | 2024-02-15 03:50 | XMS_ITS ---
Author Organization Sonny Llanes MD Address [address] [place] [phone] Care Team Providers Care Retail Account Representative Name Role Phone Sonny Llanes Primary Care Provider [phone] REASON FOR VISIT STRESS TEST DATE Encounters Encounter Location Date Provider Diagnosis Sonny Llanes MD [facility] [address] [place] [phone] 02/15/2024 Sonny Llanes Plan Of Treatment Next Appt Details Provider Name:Sonny ross, 08/21/2025 07:30:00 AM, [address] [place] [address], [address], [phone], Provider Name:Sonny ross, 08/28/2025 09:00:00 AM, [address] [place] [address], [address], [phone], Provider Name:Sonny Hartman ier, 02/15/2026 07:15:00 AM, [address], [address], [place], [place], [phone], Provider Name:Sonny Hartman ier, 02/22/2026 08:30:00 AM, [address], [address], [place], [place], [phone], Progress Notes * Renetta WALTERS LDOB:[birth year] (73 yo F)Acc No.[id number]:02/15/2024 Patient: Victor Hugo marshbuzzshanice Renetta Medina :1950 A ge:73 Y S ex:Female Address:[address] [place] [address] , [place] [address] * true * Date: Generated for Ramsey copeland/Abilio/Justineitting on: 07/11/2024 12:11 PM EST
--- OUTSIDE RECORDS SUMMARY | 2024-02-22 03:15 | XMS_ITS ---
Author Organization Sonny Llanes MD Address [address] [place] [phone] Care Team Providers Care Lower In Supervisor Name Role Phone Sonny Llanes Primary Care Provider [phone] Results Component Value Reference Range Notes UA ClnCatch+Micro w/rflx Cul t Reviewed date:02/22/2024 12:29:26 PM Interpretation: Performing Lab:[facility], [address] [place] [phone] Notes/Report: Urine, Clean Catch Color Urine Yellow Appearance Urine Clear PH 6.0 5.0-9.0 Glucose Urine UA Negative Negative mg/dL Urine Blood Negative Negative Specific Coyote - Urine 1.015 1.005-1.025 Urine Protein Negative Neg-Trace mg/dL Urine Ketones Negative Negative mg/dL Nitrite Urine Negative Negative Leukocyte Esterase Urine Trace Negative RBC Urine 0-2 0-2 /HPF WBC Urine 0-5 0-5 /HPF Squamous Epithelial Cell Urine 0-2 0-2 /HPF Bacteria Urine None Seen None Seen Hyaline Casts Urine 0-2 0-2 /LPF REASON FOR VISIT U/A Encounters Encounter Location Date Provider Diagnosis Sonny Llanes MD [address] [place] [address] [place] [phone] 02/22/2024 Sonny Llanes After-treatment Z51.89 Assessments Encounter Date Diagnosis (ICD Code) Assessment Notes Treatment Notes Treatment Clinical Notes Section Notes 02/22/2024 After-treatment (ICD-10 - Z51.89) Plan Of Treatment Next Appt Details Provider Name:Sonny Hartman ieyamileth, 08/21/2025 07:30:00 AM, [address] [place] [address], [address] [place] [address], [phone], Provider Name:Sonny ross, 08/28/2025 09:00:00 AM, [address] [place] [address], [address], [phone], Provider Name:Sonny ross, 02/15/2026 07:15:00 AM, [address] [place] [address], Suite [facility], [place], [place], [phone], Provider Name:Sonny ross, 02/22/2026 08:30:00 AM, [address] [place] [address], [address], [phone], Progress Notes * Renetta WALTERS LDOB:[birth year] (74 yo F)Acc No.[id number]:02/22/2024 Progress Note Patient: Renetta POTTER Provider: Cliff Llanes MD :1950 A ge:73 Y S ex:Female Date:02/22/2024 Address:[address] [place], [place] [phone] Subjective: * Chief Complaints: * 1 . U/A. * Medical History: Objective: * Vitals: Assessment: * Assessment: 1. A fter-treatment - Z51.89 Plan: * Treatment: * * The named appointment provid er may or may not be the originator of this progress note, and it is not deemed complete until electronically signed by the appointment provider. Sign off status: Pending * Provider: Cliff Llanes MD Date: 0 02/22/2024 Generated for Ramsey copeland/Abilio/Brendan on: 1 07/11/2024 12:11 PM EST
--- OUTSIDE RECORDS SUMMARY | 2024-04-01 06:04 | XMS_ITS ---
Author Organization Sonny Llanes MD Address [address] [place] [phone] Care Team Providers Care Earth Science Professor Name Role Phone Sonny Llanes Primary Care Provider REASON FOR VISIT RF Medications Medication SIG (Take, Route, Frequency, Duration) Notes Start Date End Date Status Levothyroxine Sodium 88 MCG take one by mouth every morning Orally Once a day for 90 days Active Encounters Encounter Location Date Provider Diagnosis Sonny Llanes MD [address] [place] [phone] 04/01/2024 Sonny Llanes Acquired hypothyroidism E03.9 Assessments Encounter Date Diagnosis (ICD Code) Assessment Notes Treatment Notes Treatment Clinical Notes Section Notes 04/01/2024 Acquired hypothyroidism (ICD-10 - E03.9) Plan Of Treatment Medication Medication Name Sig Start Date Stop Date Notes Levothyroxine Sodium 88 MCG take one by mouth every morning Orally Once a day for 90 days Next Appt Details Provider Name:Sonny Hartman ier, 08/21/2025 07:30:00 AM, [address] [place] [address], [place] [address], [place], [place], [phone], Provider Name:Sonny Hartman ier, 08/28/2025 09:00:00 AM, [address] [place] [address], [place] [address], [place], [place], [phone], Provider Name:Sonny Hartman ier, 02/15/2026 07:15:00 AM, [address] [place] [address], [place] [address], [place], [place], [phone], Provider Name:Sonny Hartman ier, 02/22/2026 08:30:00 AM, [address] [place] [address], [place] [address], [place], [place], [phone], Progress Notes * Renetta WALTERS LDOB:[birth year] (73 yo F)Acc No.[id number]:04/01/2024 Patient: Victor Hugo Renetta geller :1950 A ge:73 Y S ex:Female Address:[address] [place] [address] , [place] [address] * Refills Refill Levothyroxine Sodium Tablet, 88 MCG, Orally, 90, take one by mouth every morning, Once a day, 90 days, Refills=3 * true * Date: Generated for Ramsey copeland/Abilio/Willsmitting on: 07/11/2024 12:11 PM EST
--- OUTSIDE RECORDS SUMMARY | 2024-04-05 03:02 | XMS_ITS ---
Author Organization Sonny Llanes MD Address [address] [place] [phone] Care Team Providers Care Cable Systems Installer Name Role Phone Sonny Llanes Primary Care Provider REASON FOR VISIT RF Levothyroxine Medications Medication SIG (Take, Route, Frequency, Duration) Notes Start Date End Date Status Levothyroxine Sodium 88 MCG take one by mouth every morning Orally Once a day for 90 days Active Encounters Encounter Location Date Provider Diagnosis Sonny Llanes MD [address] [place] [phone] 04/05/2024 Sonny Llanes Acquired hypothyroidism E03.9 Assessments Encounter Date Diagnosis (ICD Code) Assessment Notes Treatment Notes Treatment Clinical Notes Section Notes 04/05/2024 Acquired hypothyroidism (ICD-10 - E03.9) Plan Of Treatment Medication Medication Name Sig Start Date Stop Date Notes Levothyroxine Sodium 88 MCG take one by mouth every morning Orally Once a day for 90 days Next Appt Details Provider Name:Sonny Hartman ier, 08/21/2025 07:30:00 AM, [address] [place] [address], [place] [address], [place], [place], [phone], Provider Name:Sonny Hartman ier, 08/28/2025 09:00:00 AM, [address] [place] [address], [place] [address], [place], [place], [phone], Provider Name:Sonny Hartman ier, 02/15/2026 07:15:00 AM, [address] [place] [address], [place] [address], [place], [place], [phone], Provider Name:Sonny Hartman ier, 02/22/2026 08:30:00 AM, [address] [place] [address], [place] [address], [place], [place], [phone], Progress Notes * Renetta WALTERS LDOB:[birth year] (73 yo F)Acc No.[id number]:04/05/2024 Patient: Victor Hugo Renetta geller :1950 A ge:73 Y S ex:Female Address:[address] [place] [address] , [place] [address] * Refills Refill Levothyroxine Sodium Tablet, 88 MCG, Orally, 90, take one by mouth every morning, Once a day, 90 days, Refills=3 * true * Date: Generated for Ramsey copeland/Abilio/Willsmitting on: 07/11/2024 12:12 PM EST
--- OUTSIDE RECORDS SUMMARY | 2024-06-07 05:34 | XMS_ITS ---
Author Organization Sonny Llanes MD Address [address] [place] [phone] Care Team Providers Care Purchasing Expeditor Name Role Phone Sonny Llanes Primary Care Provider [phone] REASON FOR VISIT refill Medications Medication SIG (Take, Route, Frequency, Duration) Notes Start Date End Date Status Irbesartan-hydroCHLOROthia zide 300-12.5 MG 1 tablet Orally Once a day for 90 days Active Encounters Encounter Location Date Provider Diagnosis Sonny Llanes MD [address] [place] [phone] 06/07/2024 Sonny Llanes Essential hypertension I10 Assessments Encounter Date Diagnosis (ICD Code) Assessment Notes Treatment Notes Treatment Clinical Notes Section Notes 06/07/2024 Essential hypertension (ICD-10 - I10) Plan Of Treatment Medication Medication Name Sig Start Date Stop Date Notes Irbesartan-hydroCHLOROthiazi de 300-12.5 MG 1 tablet Orally Once a day for 90 days Next Appt Details Provider Name:Sonny Hartman ier, 08/21/2025 07:30:00 AM, [address] [place] [address], Suite [facility], [place], [place], [phone], Provider Name:Sonny Hartman ier, 08/28/2025 09:00:00 AM, [address] [place] [address], [place] [address], [place], [place], [phone], Provider Name:Sonny Hartman ier, 02/15/2026 07:15:00 AM, [address] [place] [address], [place] [address], [place], [place], [phone], Provider Name:Sonny Hartman ier, 02/22/2026 08:30:00 AM, [address] [place] [address], [place] [address], [place], [place], [phone], Progress Notes * Renetta WALTERS LDOB:[birth year] (73 yo F)Acc No.[id number]:06/07/2024 Patient: Victor Hugo Renetta geller :1950 A ge:73 Y S ex:Female Address:[address] [place] [address] , [place] [address] * Refills Refill Irbesartan-hydroCHLOROthiazide Tablet, 300-12.5 MG, Orally, 90 Tablet, 1 tablet, Once a day, 90 days, Refills=3 * true * Date: Generated for Ramsey copeland/Abilio/Justineitting on: 1 07/11/2024 12:12 PM EST
--- OUTSIDE RECORDS SUMMARY | 2024-08-12 04:00 | XMS_ITS ---
Author Organization Sonny Llanes MD Address [address] [place] [phone] Care Team Providers Care Wicker Worker Name Role Phone Sonny Llanes Primary Care Provider Results Component Value Reference Range Notes TSH reflex Free T4 Reviewed date:08/12/2024 12:55:39 PM Interpretation: Performing Lab:[facility], [address] [place] [phone] Notes/Report: TSH reflex Free T4 0.91 0.32-4.0 uIU/mL REASON FOR VISIT TSH Encounters Encounter Location Date Provider Diagnosis Sonny Llanes MD [address] [place] [phone] 08/12/2024 Sonny Llanes Acquired hypothyroidism E03.9 Assessments Encounter Date Diagnosis (ICD Code) Assessment Notes Treatment Notes Treatment Clinical Notes Section Notes 08/12/2024 Acquired hypothyroidism (ICD-10 - E03.9) Plan Of Treatment Next Appt Details Provider Name:Sonny Hartman ier, 08/21/2025 07:30:00 AM, [address], Suite [facility], [place], [place], [phone], Provider Name:Sonny Hartman ier, 08/28/2025 09:00:00 AM, [address] [facility], Suite [facility], [place], [place], [phone], Provider Name:Sonny Hartman ier, 02/15/2026 07:15:00 AM, [address], Suite [facility], [place], [place], [phone], Provider Name:Sonny Hartman ier, 02/22/2026 08:30:00 AM, [address] [place] [address], Suite [facility], [place], [place], [phone], Progress Notes * BRITTANY Renetta LDOB:[birth year] (74 yo F)Acc No.[id number]:08/12/2024 Progress Note Patient: Renetta POTTER Provider: Cliff Llanes MD :1950 A ge:73 Y S ex:Female Date:08/12/2024 Address:[address] [place], [place] [phone] Subjective: * Chief Complaints: * 1 . TSH. * Medical History: Objective: * Vitals: Assessment: * Assessment: 1. A cquired hypothyroidism - E03.9 (Primary) Plan: * Treatment: * Procedure Codes: 3 6415 VENIPUNCT, ROUTINE* * * The named appointment provid er may or may not be the originator of this progress note, and it is not deemed complete until electronically signed by the appointment provider. Sign off status: Pending * Provider: Cliff Llanes MD Date: 0 08/12/2024 Generated for Ramsey copeland/Abilio/Willsmitting on: 1 07/11/2024 12:11 PM EST
--- OUTSIDE RECORDS SUMMARY | 2024-08-15 04:00 | XMS_ITS ---
Author Organization Sonny Llanes MD Address [address] [place] [phone] Care Team Providers Care Outsole Rounder Name Role Phone Sonny Llanes Primary Care Provider Allergies No Known Allergies REASON FOR VISIT 6 MO F/U Medications Medication SIG (Take, Route, Frequency, Duration) Notes Start Date End Date Status Gabapentin 100 MG 1 capsule Orally Onc e a day for 30 day(s) Active Calcium 500 MG 1 tablet with meals Orally Twice a day for 30 day(s) Active Centrum Silver Ultra Womens Orally Active Vitamin D 1000 UNIT 1 tablet Orally Once a day Active Irbesartan-hydroCHLOROthia zide 300-12.5 MG 1 tablet Orally Once a day Active Ciclopirox 0.77% as directed applied topically twice a day for 14 days 02/07/2021 Not-Taking ProAir RespiClick 108 (90 Base) MCG/ACT 1 puff as needed Inhalation every 4 hrs for 90 days 02/16/2017 Not-Taking ZyrTEC 10mg Once a day Not-Kyree ing amLODIPine Besylate 5 MG TAKE 1 TABLET B Y MOUTH EVERY DAY Active Levothyroxine Sodium 88 MCG take one by mouth every morning Orally Once a day Active traMADol HCl 50 MG 1 tablet as needed Orally 3 times a day as needed for 10 days 10/01/2021 Not-Taking Imitrex 100 MG 1 tablet Orally once a day for 30 days Not-Taking Ativan 0.5 MG 1 tablet Orally as needed for 10 days 08/18/2022 Not-Taking dexAMETHasone 4 MG 1 tablet Orally Thre e times a day for 7 days 10/01/2021 Not-Takin g traMADol HCl 50 MG 1 tablet as needed Orally 3 times a day as needed for 10 days 10/01/2021 Not-Taking Anastrozole 1 MG 1 tablet Orally Once a day Not-Taking Vital Signs Blood pressure systolic 142 mm Hg 08/16/19 25 Blood pressure diastolic 80 mm Hg 025 Height 65 in 08/15/2024 Weight 200 lbs 08/15/2024 BMI 33.28 kg/m2 08/15/2024 weight is up 3 pounds since 02-15-24 Encounters Encounter Location Date Provider Diagnosis Sonny Llanes MD [address] [place] [address] [place] [phone] 08/15/2024 Sonny Llanes Essential hypertensi on I10 and Acquired hypothyroidism E03.9 Assessments Encounter Date Diagnosis (ICD Code) Assessment Notes Treatment Notes Treatment Clinical Notes Section Notes 08/15/2024 Essential hypertension (ICD-10 - I10) doing well on meds, will continue current regiment 08/15/2024 Acquired hypothyroidism (ICD-10 - E03.9) good tsh.will continue current regiment 08/15/2024 Other depression well controlled Plan Of Treatment Medication Medication Name Sig Start Date Stop Date Notes Irbesartan-hydroCHLOROthiazi de 300-12.5 MG 1 tablet Orally Once a day amLODIPine Besylate 5 MG TAKE 1 TABLET B Y MOUTH EVERY DAY Levothyroxine Sodium 88 MCG take one by mouth every morning Orally Once a day Treatment Notes Assessment Notes Essential hypertension doing well on med s, will continue current regiment Acquired hypothyroidism good tsh.will co ntinue current regiment Other depression well cont rolled Next Appt Details Provider Name:Sonny Hartman ier, 08/21/2025 07:30:00 AM, [address], Suite [facility], [place], [place], [phone], Provider Name:Sonny Hartman ier, 08/28/2025 09:00:00 AM, 10 [facility], Suite [facility], [place], [place], [phone], Provider Name:Sonny Hartman ier, 02/15/2026 07:15:00 AM, [address], [address], [place], [place], [phone], Provider Name:Sonny Hartman ier, 02/22/2026 08:30:00 AM, [address], Suite [facility], [place], [place], [phone], Progress Notes * JONASHARIRenetta RAMON LDOB:[birth year] (73 yo F)Acc No.[id number]:08/15/2024 Progress Notes Patient: Renetta POTTER Provider: Cliff Llanes MD :1950 A ge:73 Y S ex:Female Date:08/15/2024 Address:[address] [place], [place] [phone] Subjective: * Chief Complaints: * 6 MO F/U * HPI: S ymptom(s): patient is a here for 6 month f ollow up. * ROS: G eneral/Constitutional: Denies C hills. D enies F atigue. D enies F ever. D enies H eadache. E NT: Patient denies d ecreased sense of smell, any loss of taste, sore throat. D enies S ore throat. R espiratory: Denies C ough. D enies S hortness of breath at rest. D enies S hortness of breath with exertion. G astrointestinal: Denies D iarrhea. D enies N ausea. M usculoskeletal: Patient denies m uscle aches. P eripheral Vascular: Patient denies r ed and blue toes. * Medical History: * Surgical History: * Hospitalization/Major Diagno stic Procedure: * Medications: T akingGabapentin 100 MG Capsule 1 capsule Orally Once a day Calcium 500 MG Tablet 1 tablet with meals Orally Twice a day Centrum Silver Ultra Womens Tablet Orally Vitamin D 1000 UNIT Tablet 1 tablet Orally Once a day amLODIPine Besylate 5 MG Tablet TAKE 1 TABLET BY MOUTH EVERY DAY Levothyroxine Sodium 88 MCG Tablet take one by mouth every morning Orally Once a day Irbesartan-hydroCHLOROthiazide 300-12.5 MG Tablet 1 tablet Orally Once a day Taking Gabapentin 100 MG Capsule 1 capsule Orally Once a day Taking Calcium 500 MG Tablet 1 tablet with meals Orally Twice a day Taking Centrum Silver Ultra Womens Tablet Orally Taking Vitamin D 1000 UNIT Tablet 1 tablet Orally Once a day Taking amLODIPine Besylate 5 MG Tablet TAKE 1 TABLET BY MOUTH EVERY DAY Taking Levothyroxine Sodium 88 MCG Tablet take one by mouth every morning Orally Once a day Taking Irbesartan-hydroCHLOROthiazide 300-12.5 MG Tablet 1 tablet Orally Once a day Not-Taking/PRNAnastrozole 1 MG Tablet 1 tablet Orally Once a day Ativan 0.5 MG Tablet 1 tablet Orally as needed dexAMETHasone 4 MG Tablet 1 tablet Orally Three times a day traMADol HCl 50 MG Tablet 1 tablet as needed Orally 3 times a day as needed traMADol HCl 50 MG Tablet 1 tablet as needed Orally 3 times a day as needed Imitrex 100 MG Tablet 1 tablet Orally once a day Ciclopirox 0.77% cream as directed applied topically twice a day ProAir RespiClick 108 (90 Base) MCG/ACT Aerosol Powder Breath Activated 1 puff as needed Inhalation every 4 hrs ZyrTEC 10mg Once a day Medication List reviewed and reconciled with the patientNot-Taking/PRN Anastrozole 1 MG Tablet 1 tablet Orally Once a day Not-Taking/PRN Ativan 0.5 MG Tablet 1 tablet Orally as needed Not-Taking/PRN dexAMETHasone 4 MG Tablet 1 tablet Orally Three times a day Not-Taking/PRN traMADol HCl 50 MG Tablet 1 tablet as needed Orally 3 times a day as needed Not-Taking/PRN traMADol HCl 50 MG Tablet 1 tablet as needed Orally 3 times a day as needed Not-Taking/PRN Imitrex 100 MG Tablet 1 tablet Orally once a day Not-Taking/PRN Ciclopirox 0.77% cream as directed applied topically twice a day Not-Taking/PRN ProAir RespiClick 108 (90 Base) MCG/ACT Aerosol Powder Breath Activated 1 puff as needed Inhalation every 4 hrs Not-Taking/PRN ZyrTEC 10mg Once a day Medication List reviewed and reconciled with the patient * Allergies: N .K.D.A.yes[Allergies Verified] Objective: * Vitals: H t: 65, Wt: 200, BMI:33.28, BP:142/80, Repeat BP:120/82, Wt-k.72. weight is up 3 pounds since 02-15-24. * P ast Orders: L ab:TSH reflex Free T4 (Order Date - 08/12/2024) (Collection Date & Time - 08/12/2024 09:00 AM) Value Reference Range TSH reflex Free T4 0.91 0.32-4.0 - uIU/mL * Examination: G eneral Examination: GENERAL APPEARANCE: a lert, well hydrated, in no distress.? HEAD: n ormocephalic. SKIN: g ood turgor. HEART: n o murmurs, regular rate and rhythm. LUNGS: c lear to auscultation bilaterally, good air movement, no wheezes, rales, rhonchi. Assessment: * Assessment: 1. E ssential hypertension - I10 (Primary) 2 . A cquired hypothyroidism - E03.9 Plan: * Treatment: 2. A cquired hypothyroidism Continue Levothyroxine Sodium Tablet, 88 MCG, take one by mouth every morning, Orally, Once a day.? Notes: good tsh.will continue current regiment 3. O thers Notes: depression well controlled * Procedure Codes: * * Sign off status: Completed true * Provider: Cliff Llanes MD Date: 0 08/15/2024 Generated for Ramsey copeland/Abilio/Justineitting on: 1 07/11/2024 12:11 PM EST History and Physical Notes * HPI (History of Present Illness) Category Sub-Category Detail Notes Category Not es Symptom(s) patient is a he re for 6 month follow up Examination Category Sub-Category Detail Notes Category Not es General Examination GENERAL APPEARANCE: alert, w ell hydrated, in no distress HEAD: normocephalic HEART: no murmurs, regular rate and rhythm LUNGS: clear to auscultatio n bilaterally, good air movement, no wheezes, rales, rhonchi SKIN: good turgor
--- OUTSIDE RECORDS SUMMARY | 2025-02-13 03:30 | XMS_ITS ---
Author Organization Sonny Llanes MD Address [address] [place] [phone] Care Team Providers Care Financial Services Rep Name Role Phone Sonny Llanes Primary Care Provider [phone] Results Component Value Reference Range Notes Complete Blood Count Auto Di ff Reviewed date:02/13/2025 05:08:04 PM Interpretation: Performing Lab:[facility], [address] [place] [phone] Notes/Report: White Blood Count 6.1 4.8-10.8 X10*3/uL Red Blood Count 5.10 4.20-5.50 X10*6/uL Hemoglobin 15.4 12.0-16.0 g/dl Hematocrit 44.6 37.0-47.0 % Mean Corpuscular Volume 87.5 80.0-98.0 fL Mean Corpuscular Hemoglobin 30.2 27.0-33.0 pg Mean Corpuscular HGB Conc 34.5 31.0-35.0 g/dl Red Cell Distribution Width 12.5 11.0-16.0 % Platelet Count 254 160-400 X10*3/uL Mean Platelet Volume 10.3 9.4-12.3 fL Neutrophils Percent Auto 47.5 45-73 % Imm Gran Pct Auto 0.2 0.0-0.4 % Lymphocytes Percent Auto 34.7 20-40 % Monocytes Percent Auto 11.7 2-11 % Eosinophils Percent Auto 5.1 0-4 % Basophils Percent Auto 0.8 0-2 % NRBC Pct Auto 0.0 0.0-0.2 /100WBC Neutrophils Absolute Auto 2.9 2.0-8.3 x10*3/u L Imm Gran Abs Auto 0.01 0.00-0.03 X10*3/uL Lymphocytes Absolute Auto 2.1 1.2-4.9 X10*3/u L Monocytes Absolute Auto 0.7 0.1-1.2 X10*3/uL Eosinophils Absolute Auto 0.3 0.0-0.4 X10*3/u L Basophils Absolute Auto 0.1 0.0-0.2 X10*3/uL NRBC Abs Auto 0.000 0.0-0.012 X10*3/uL Comprehensive [place]. Panel Fa st Reviewed date:02/13/2025 05:07:38 PM Interpretation: Performing Lab:[facility], [address] [place] [phone] Notes/Report: Sodium 140 135-145 mmol/L Potassium 3.8 3.3-5.1 mmol/L Chloride 107 96-108 mmol/L Carbon Dioxide 25 22-29 mmol/L Anion Gap 12 12-20 Blood Urea Nitrogen 16 9-16 mg/dL Creatinine 1.00 0.5-1.4 mg/dL Estimated Glomerular Filt Rate 54 Chronic Kidney Disease: Estimated GFR < 60 mL/min/1.73m2 Severe Kidney Disease: Estimated GFR < 15 mL/min/1.73m2 Glucose Fasting 108 60-99 mg/dL A fasting glucose from 100-125 mg/dl is considered impaired (pre-diabetes). Calcium 9.0 8.4-10.2 mg/dL Bilirubin Total 0.7 0.0-1.0 mg/dL Aspartate Amino Transferase 30 5-31 U/L Alanine Aminotransferase 25 0-31 U/L Total Protein 6.7 6.5-8.0 g/dL Albumin Level 4.2 3.5-5.0 g/dL Alkaline Phosphatase 42 39-117 U/L Lipid Panel Reviewed date:02/13/2025 12:32:26 PM Interpretation: Performing Lab:[facility], [address] [place] [phone] Notes/Report: Triglycerides 163 <150 mg/dL Desirable Triglyceride: less than 150 mg/dL Borderline High Triglyceride 150-199 mg/dL High Triglyceride: 200-499 mg/dL Very High Triglyceride: greater than or equal to 5OO mg/dL Cholesterol 218 <200 mg/dL Desirable Cholesterol: less than 200 mg/dL Borderline High Cholesterol: 200-239 mg/dL High Cholesterol: greater than 239 mg/dL LDL Cholesterol Calculated 124 <100 mg/dL Desirable LDL: less than 100 mg/dL Near Optimal/Above Optimal LDL: 110-129 mg/dL Borderline High LDL: 130-159 mg/dL High LDL: 160-189 mg/dL Very High LDL: greater than or equal to 190 mg/dL HDL Cholesterol 62 >40 mg/dL Desirable HDL: greater than 40 mg/dL Note: This HDL assay may give artificially low results in patients with liver disease. TSH reflex Free T4 Reviewed date:02/13/2025 12:32:16 PM Interpretation: Performing Lab:[facility], [address] [place] [phone] Notes/Report: TSH reflex Free T4 0.73 0.32-4.0 uIU/mL Microalbumin, Random Reviewed date:02/13/2025 12:35:23 PM Interpretation: Performing Lab:[facility], [address] [place] [phone] Notes/Report: Creatinine Urine 95.53 Microalbumin Urine < 5.0 Microalbum/Creatinine Ratio Ur TNP <30 ug/mg cr Unable to calculate albumin/creatinine ratio due to low microalbumin or creatinine result. Hemoglobin A1c Reviewed date:02/13/2025 10:53:20 AM Interpretation: Performing Lab:[facility], [address] [place] [phone] Notes/Report: Hemoglobin A1c % 5.6 <6.0 % Hemoglobin A1C Reference Range Adults: 4.8 - 6.0 % Non diabetic: < 6.0 % Goal: < 7.0 % Additional Action Suggested: > 8.0 % Note: Hemoglobin A1c results are invalid for patients with abnormal amounts of HbF. Blood transfusions may impact the HbA1c concentration in the patient sample. Estimated Average Glucose 114 eAG = Estimated average glucose which is %A1C expressed as average glucose, using the formula of the W5H-[place] Average Glucose study (ADAG), Diabetes Care, Vol.31,#8, Dec. 2007 UA ClnCatch+Micro w/rflx Cul t Reviewed date:02/13/2025 05:14:02 PM Interpretation: Performing Lab:[facility], [address] [place] [phone] Notes/Report: Urine, Clean Catch Color Urine Yellow Appearance Urine Clear PH 5.5 5.0-9.0 Glucose Urine UA Negative Negative mg/dL Urine Blood Negative Negative Specific [place] - Urine 1.015 1.005-1.025 Urine Protein Negative Neg-Trace mg/dL Urine Ketones Negative Negative mg/dL Nitrite Urine Negative Negative Leukocyte Esterase Urine Trace Negative RBC Urine 0-2 0-2 /HPF WBC Urine 0-5 0-5 /HPF Squamous Epithelial Cell Urine 11-20 0-2 /HPF Bacteria Urine None Seen None Seen Hyaline Casts Urine 0-2 0-2 /LPF REASON FOR VISIT FASTING LABS Immunizations Vaccine Route Administration Date Status Comme nts Influenza High Dose IM Intramuscular 02/13/2025 Administer ed Encounters Encounter Location Date Provider Diagnosis Sonny Llanes MD [address] [place], [place] [phone] 02/13/2025 Sonny Llanes Blood tests for routine general physical examination Z00.00 ; Encounter for administration of vaccine Z23 ; Essential hypertension I10 ; Acquired hypothyroidism E03.9 ; Prediabetes R73.09 and Lymphocytosis D72.820 Assessments Encounter Date Diagnosis (ICD Code) Assessment Notes Treatment Notes Treatment Clinical Notes Section Notes 02/13/2025 Blood tests for routine general physical examination (ICD-10 - Z00.00) oo 02/13/2025 Encounter for administration of vaccine (ICD-10 - Z23) oo 02/13/2025 Essential hypertension (ICD-10 - I10) oo 02/13/2025 Acquired hypothyroidism (ICD-10 - E03.9) oo 02/13/2025 Prediabetes (ICD-10 - R73.09) oo 02/13/2025 Lymphocytosis (ICD-10 - D72.820) oo Plan Of Treatment Next Appt Details Provider Name:Sonny Hartman ier, 08/21/2025 07:30:00 AM, [address] [place] [address], [address] [place] [address], [phone], Provider Name:Sonny Hartman ier, 08/28/2025 09:00:00 AM, [address] [place] [address], [address], [phone], Provider Name:Sonny Hartman ier, 02/15/2026 07:15:00 AM, [address] [place] [address], [address] [place] [address], [phone], Provider Name:Sonny Hartman ier, 02/22/2026 08:30:00 AM, [address] [place] [address], [address], [phone], Progress Notes * Renetta WALTERS LDOB:[birth year] (74 yo F)Acc No.[id number]:02/13/2025 Progress Note Patient: Renetta POTTER Provider: Cliff Llanes MD :1950 A ge:74 Y S ex:Female Date:02/13/2025 Address:[address] [place], [place] [phone] Subjective: * Chief Complaints: * 1 . FASTING LABS. * Medical History: Objective: * Vitals: Assessment: * Assessment: 1. E ncounter for administration of vaccine - Z23 (Primary) 2 . B lood tests for routine general physical examination - Z00.00 3 . E ssential hypertension - I10 4 . A cquired hypothyroidism - E03.9 5 . P rediabetes - R73.09 6 . L ymphocytosis - D72.820 oo Plan: * Treatment: 2. E ssential hypertension L AB: Complete Blood Count Auto Diff (Collection Date & Time - 02/13/2025 08:30 AM) L AB: Comprehensive [place]. Panel Fast (Collection Date & Time - 02/13/2025 08:30 AM) L AB: Lipid Panel (Collection Date & Time - 02/13/2025 08:30 AM) L AB: TSH reflex Free T4 (Collection Date & Time - 02/13/2025 08:30 AM) L AB: Microalbumin, Random (Collection Date & Time - 02/13/2025 08:30 AM) L AB: Hemoglobin A1c (Collection Date & Time - 02/13/2025 08:30 AM) L AB: UA ClnCatch+Micro w/rflx Cult (Collection Date & Time - 02/13/2025 08:30 AM) 3. A cquired hypothyroidism L AB: Complete Blood Count Auto Diff (Collection Date & Time - 02/13/2025 08:30 AM) L AB: Comprehensive [place]. Panel Fast (Collection Date & Time - 02/13/2025 08:30 AM) L AB: Lipid Panel (Collection Date & Time - 02/13/2025 08:30 AM) L AB: TSH reflex Free T4 (Collection Date & Time - 02/13/2025 08:30 AM) L AB: Microalbumin, Random (Collection Date & Time - 02/13/2025 08:30 AM) L AB: Hemoglobin A1c (Collection Date & Time - 02/13/2025 08:30 AM) L AB: UA ClnCatch+Micro w/rflx Cult (Collection Date & Time - 02/13/2025 08:30 AM) 4. P rediabetes L AB: Complete Blood Count Auto Diff (Collection Date & Time - 02/13/2025 08:30 AM) L AB: Comprehensive [place]. Panel Fast (Collection Date & Time - 02/13/2025 08:30 AM) L AB: Lipid Panel (Collection Date & Time - 02/13/2025 08:30 AM) L AB: TSH reflex Free T4 (Collection Date & Time - 02/13/2025 08:30 AM) L AB: Microalbumin, Random (Collection Date & Time - 02/13/2025 08:30 AM) L AB: Hemoglobin A1c (Collection Date & Time - 02/13/2025 08:30 AM) L AB: UA ClnCatch+Micro w/rflx Cult (Collection Date & Time - 02/13/2025 08:30 AM) 5. L ymphocytosis L AB: Complete Blood Count Auto Diff (Collection Date & Time - 02/13/2025 08:30 AM) L AB: Comprehensive [place]. Panel Fast (Collection Date & Time - 02/13/2025 08:30 AM) L AB: Lipid Panel (Collection Date & Time - 02/13/2025 08:30 AM) L AB: TSH reflex Free T4 (Collection Date & Time - 02/13/2025 08:30 AM) L AB: Microalbumin, Random (Collection Date & Time - 02/13/2025 08:30 AM) L AB: Hemoglobin A1c (Collection Date & Time - 02/13/2025 08:30 AM) L AB: UA ClnCatch+Micro w/rflx Cult (Collection Date & Time - 02/13/2025 08:30 AM) * Immunizations: Influenza High Dose : 0.5 mg (Dose No:1) (Route: Intramuscular) given by Carleen Bowman , Office Staff on Right Deltoid * Procedure Codes: 3 6415 VENIPUNCT, ROUTINE*, 31821 FLU VACC PRSV FREE INC ANTIG, 78492 IMMUNIZATION ADMIN * * The named appointment provid er may or may not be the originator of this progress note, and it is not deemed complete until electronically signed by the appointment provider. Sign off status: Pending * Provider: Cliff Llanes MD Date: 0 02/13/2025 Generated for Ramsey copeland/Abilio/Justineitting on: 07/11/2024 12:12 PM EST
--- OUTSIDE RECORDS SUMMARY | 2025-02-20 03:30 | XMS_ITS ---
Author Organization Sonny Llanes MD Address [address] [place] [phone] Care Team Providers Care Job Press Operator Name Role Phone Sonny Llanes Primary Care Provider Allergies No Known Allergies REASON FOR VISIT review labs Medications Medication SIG (Take, Route, Frequency, Duration) Notes Start Date End Date Status Calcium 500 MG 1 tablet with meals Orally Twice a day for 30 day(s) Active ZyrTEC 10mg Once a day Not-Kyree ing Vitamin D 1000 UNIT 1 tablet Orally Once a day Active ProAir RespiClick 108 (90 Base) MCG/ACT 1 puff as needed Inhalation every 4 hrs for 90 days 02/16/2017 Not-Taking Centrum Silver Ultra Womens Orally Active traMADol HCl 50 MG 1 tablet as needed Orally 3 times a day as needed for 10 days 10/01/2021 Not-Taking Imitrex 100 MG 1 tablet Orally once a day for 30 days Not-Taking Irbesartan-hydroCHLOROthia zide 300-12.5 MG 1 tablet Orally Once a day Active Ciclopirox 0.77% as directed applied topically twice a day for 14 days 02/07/2021 Not-Taking Levothyroxine Sodium 88 MCG TAKE ONE BY MOUTH EVERY MORNING Active traMADol HCl 50 MG 1 tablet as needed Orally 3 times a day as needed for 10 days 10/01/2021 Not-Taking amLODIPine Besylate 5 MG TAKE 1 TABLET B Y MOUTH EVERY DAY Active Gabapentin 100 MG 1 capsule Orally Onc e a day Active dexAMETHasone 4 MG 1 tablet Orally Thre e times a day for 7 days 10/01/2021 Not-Takin g Ativan 0.5 MG 1 tablet Orally as needed for 10 days 08/18/2022 Not-Taking Anastrozole 1 MG 1 tablet Orally Once a day Not-Taking Social History Tobacco Use: Social History Observation [...] Never (0 point) Points 1 Interpretation Negative Vital Signs Blood pressure systolic 132 mm Hg 02/21/20 25 Blood pressure diastolic 80 mm Hg 025 Height 65 in 02/20/2025 Weight 198 lbs 02/20/2025 BMI 32.95 kg/m2 02/20/2025 weight is down 2 pounds reading hospital [facility] 08-15-24 Encounters Encounter Location Date Provider Diagnosis Sonny Llanes MD [address] [place] [address] [address] [place], [place] [id number] 02/20/2025 Sonny Llanes Essential hypertensi on I10 ; Encounter for general adult medical examination with abnormal findings Z00.01 ; Prediabetes R73.09 ; Acquired hypothyroidism E03.9 ; Lumbar disc disease M51.9 ; Depression screening Z13.31 and Colon cancer screening Z12.11 Assessments Encounter Date Diagnosis (ICD Code) Assessment Notes Treatment Notes Treatment Clinical Notes Section Notes 02/20/2025 Essential hypertension (ICD-10 - I10) stable, will continue current regiment and will continue to monitor 02/20/2025 Encounter for general adult medical examination with abnormal findings (ICD-10 - Z00.01) Labs reviewed and discussed with patient 02/20/2025 Prediabetes (ICD-10 - R73.09) advised diet and exercise, will cntinue to monitor 02/20/2025 Acquired hypothyroidism (ICD-10 - E03.9) stable, will continue current regiment 02/20/2025 Lumbar disc disease (ICD-10 - M51.9) stable, will continue current regiment 02/20/2025 Depression screening (ICD-10 - Z13.31) negative screen 02/20/2025 Colon cancer screening (ICD-10 - Z12.11) guaiac negative Plan Of Treatment Medication Medication Name Sig Start Date Stop Date Notes Irbesartan-hydroCHLOROthiazi de 300-12.5 MG 1 tablet Orally Once a day Levothyroxine Sodium 88 MCG TAKE ONE BY MOUTH EVERY MORNING amLODIPine Besylate 5 MG TAKE 1 TABLET B Y MOUTH EVERY DAY Gabapentin 100 MG 1 capsule Orally Onc e a day Treatment Notes Assessment Notes Essential hypertension stable, will cont inue current regiment and will continue to monitor Encounter for general adult medical examination with abnormal findings Labs reviewed and discussed with patient Prediabetes advised diet and exe rcise, will cntinue to monitor Acquired hypothyroidism stable, will con tinue current regiment Lumbar disc disease stable, will continu e current regiment Depression screening negative screen Colon cancer screening guaiac negative Future Test Test Name Order Date TSH reflex Free T4 08/20/2025 Next Appt Details Follow Up: 6 Months, Reason: Provider Name:Sonny ross, 08/21/2025 07:30:00 AM, [address] [place] [address], [address], [place], [place], [phone], Provider Name:Sonny ross, 08/28/2025 09:00:00 AM, [address] [place] [address], [address], [place], [place], [phone], Provider Name:Sonny Hartman ier, 02/15/2026 07:15:00 AM, [address], [address], [place], [place], [phone], Provider Name:Sonny Hartman ier, 02/22/2026 08:30:00 AM, [address], [address], [place], [place], [phone], Progress Notes * Renetta WALTERS LDOB:[birth year] (74 yo F)Acc No.[id number]:02/20/2025 Patient: Renetta POTTER Provider: Cliff Llanes MD :1950 A ge:74 Y S ex:Female Date:02/20/2025 Address:[address] [place] [address] , [id number] Subjective: * Chief Complaints: * R eview labs * HPI: D epression Screening: PHQ-9 L ittle interest or pleasure in doing things N ot at all, F eeling down, depressed, or hopeless N ot at all, T rouble falling or staying asleep, or sleeping too much N ot at all, F eeling tired or having little energy N ot at all, P oor appetite or overeating N ot at all, F eeling bad about yourself or that you are a failure, or have let yourself or your family down N ot at all, T rouble concentrating on things, such as reading the newspaper or watching television N ot at all, M oving or speaking so slowly that other people could have noticed; or the opposite, being so fidgety or restless that you have been moving around a lot more than usual N ot at all, T houghts that you would be better off or of hurting yourself in some way N ot at all, T otal Score 0 . I nterpretation and Intervention D epression Screening Findings N egative, F ollow-Up for Depression : review of PHQ-9 found negative result, no follow-up needed. C ommunication Needs: Communication Needs D oes the patient have a hearing impairment N o, D oes the patient have a vision impairment? Y es, I f yes, what is the vision impairment? G lasses, D oes the patient have a cognition impairment? N o. F all Risk: History H ave you had any falls with injury in the past year? N o, H ave you had two or more falls in the past year? N o. S MAURICIO Questions: SDOH Questions I n the past year have you been worried about losing housing? N o, I n the past year have you or any family members you live with been unable to get any of the following when it was really needed? Check all that apply: N one. S ymptom(s): patient is a 74 yo female here for annual visit with review of recent labs and follow up of chronic issues. * ROS: G eneral/Constitutional: Change in appetite d enies. C hills d enies. F ever d enies. O phthalmologic: Blurred vision d enies. D ischarge d enies. P ain d enies. E NT: Decreased hearing d enies. S ore throat d enies.?Swollen glands d enies. E ndocrine: Cold intolerance d enies. E xcessive thirst d enies. H eat intolerance d enies. W eight loss d enies. R espiratory: Cough d enies. S hortness of breath at rest d enies. S hortness of breath with exertion d enies. W heezing d enies. C ardiovascular: Chest pain at rest d enies. C hest pain with exertion?denies. I rregular heartbeat d enies. S hortness of breath d enies. ? G astrointestinal: Abdominal pain d enies. C hange in bowel habits d enies. D iarrhea d enies. N ausea d enies. R ectal bleeding d enies. V omiting d enies . G enitourinary: Blood in urine d enies. D ifficulty urinating d enies. F requent urination d enies. U rinary incontinence D enies. M usculoskeletal: Painful joints d enies. W eakness d enies. ? S kin: Dry skin d enies. I tching d enies. D enies?Mole(s), changes in moles, new moles or any lesions of concern. D enies P hotosensitivity. R leon d enies. N eurologic: Dizziness d enies. F ainting d enies. H eadache?denies. * Medical History: * Surgical History: * Hospitalization/Major Diagno stic Procedure: * Family History: F ather: 98 yrs, diagnosed with COPD, Hypertension. M other: 78 yrs, diagnosed with Asthma. 1 brother(s) , 1 sister(s) . 1 son(s) , 1 daughter(s) . . Denies mental health/substance abuse family history, Denies mental health/substance abuse family history, Denies mental health/substance abuse family history. * Social History: T obacco Use: T obacco Use/Smoking P atient is a f ormer smoker, H ow long has it been since you last smoked? > 10 years, A dditional Findings: Tobacco Non-User F ormer smoker, currently using no form of tobacco. D rugs/Alcohol: A lcohol Screen D id you have a drink containing alcohol in the past year? Y es, H ow often did you have a drink containing alcohol in the past year? M onthly or less (1 point), H ow many drinks did you have on a typical day when you were drinking in the past year? 1 or 2 drinks (0 point), H ow often did you have 6 or more drinks on one occasion in the past year? N ever (0 point), P oints 1 , I nterpretation N egative. M iscellaneous: C affeine: yes, frequency: 3 cups of decaff for 5 mths. Children: yes. Community involvements: none. Exercise: no. Housing: owning. Living with: spouse. Marital status: . Occupation: retired. Pets: none. * Medications: T akingGabapentin 100 MG Capsule 1 capsule Orally Once a day Calcium 500 MG Tablet 1 tablet with meals Orally Twice a day Centrum Silver Ultra Womens Tablet Orally Vitamin D 1000 UNIT Tablet 1 tablet Orally Once a day amLODIPine Besylate 5 MG Tablet TAKE 1 TABLET BY MOUTH EVERY DAY Irbesartan-hydroCHLOROthiazide 300-12.5 MG Tablet 1 tablet Orally Once a day Levothyroxine Sodium 88 MCG Tablet TAKE ONE BY MOUTH EVERY MORNING Taking Gabapentin 100 MG Capsule 1 capsule Orally Once a day Taking Calcium 500 MG Tablet 1 tablet with meals Orally Twice a day Taking Centrum Silver Ultra Womens Tablet Orally Taking Vitamin D 1000 UNIT Tablet 1 tablet Orally Once a day Taking amLODIPine Besylate 5 MG Tablet TAKE 1 TABLET BY MOUTH EVERY DAY Taking Irbesartan-hydroCHLOROthiazide 300-12.5 MG Tablet 1 tablet Orally Once a day Taking Levothyroxine Sodium 88 MCG Tablet TAKE ONE BY MOUTH EVERY MORNING Not-Taking/PRNAnastrozole 1 MG Tablet 1 tablet Orally [...] Objective: * Vitals: H t: 65, Wt: 198, BMI:32.95, BP:132/80, Wt-k.81. weight is down 2 pounds since 3-24-25. * P ast Orders: L ab:Microalbumin, Random (Order Date - 02/13/2025) (Collection Date & Time - 02/13/2025 08:30 AM) Value Reference Range Creatinine Urine 95.53 - mg/dL Microalbumin Urine < 5.0 - mg/L Microalbum Creatinine Ratio Ur TNP <30 - ug/ mg cr L ab:Hemoglobin A1c (Order Date - 02/13/2025) (Collection Date & Time - 02/13/2025 08:30 AM) Value Reference Range Hemoglobin A1c % 5.6 <6.0 - % Estimated Average Glucose 114 - mg/dL L ab:Complete Blood Count Auto Diff (Order Date - 02/13/2025) (Collection Date & Time - 02/13/2025 08:30 AM) Value Reference Range White Blood Count 6.1 4.8-10.8 - X10*3/uL Red Blood Count 5.10 4.20-5.50 - X10*6/uL Hemoglobin 15.4 12.0-16.0 - g/dl Hematocrit 44.6 37.0-47.0 - % Mean Corpuscular Volume 87.5 80.0-98.0 - fL Mean Corpuscular Hemoglobin 30.2 27.0-33.0 - pg Mean Corpuscular HGB Conc 34.5 31.0-35.0 - g/ dl Red Cell Distribution Width 12.5 11.0-16.0 - % Platelet Count 254 160-400 - X10*3/uL Mean Platelet Volume 10.3 9.4-12.3 - fL Neutrophils Percent Auto 47.5 45-73 - % Imm Gran Pct Auto 0.2 0.0-0.4 - % Lymphocytes Percent Auto 34.7 20-40 - % Monocytes Percent Auto 11.7 H 2-11 - % Eosinophils Percent Auto 5.1 H 0-4 - % Basophils Percent Auto 0.8 0-2 - % NRBC Pct Auto 0.0 0.0-0.2 - /100WBC Neutrophils Absolute Auto 2.9 2.0-8.3 - x10* 3/uL Imm Gran Abs Auto 0.01 0.00-0.03 - X10*3/uL Lymphocytes Absolute Auto 2.1 1.2-4.9 - X10* 3/uL Monocytes Absolute Auto 0.7 0.1-1.2 - X10*3/ uL Eosinophils Absolute Auto 0.3 0.0-0.4 - X10* 3/uL Basophils Absolute Auto 0.1 0.0-0.2 - X10*3/ uL NRBC Abs Auto 0.000 0.0-0.012 - X10*3/uL L ab:UA ClnCatch+Micro w/rflx Cult (Order Date - 02/13/2025) (Collection Date & Time - 02/13/2025 08:30 AM) Value Reference Range Color Urine Yellow - Appearance Urine Clear - PH 5.5 5.0-9.0 - Glucose Urine UA Negative Negative - mg/dL Urine Blood Negative Negative - Specific [place] - Urine 1.015 1.005-1.025 - Urine Protein Negative Neg-Trace - mg/dL Urine Ketones Negative Negative - mg/dL Nitrite Urine Negative Negative - Leukocyte Esterase Urine Trace A Negative - RBC Urine 0-2 0-2 - /HPF WBC Urine 0-5 0-5 - /HPF Squamous Epithelial Cell Urine 11-20 0-2 - /HP F Bacteria Urine None Seen None Seen - Hyaline Casts Urine 0-2 0-2 - /LPF L ab:Comprehensive [place]. Panel Fast (Order Date - 02/13/2025) (Collection Date & Time - 02/13/2025 08:30 AM) Value Reference Range Sodium 140 135-145 - mmol/L Bilirubin Total 0.7 0.0-1.0 - mg/dL Aspartate Amino Transferase 30 5-31 - U/L Alanine Aminotransferase 25 0-31 - U/L Total Protein 6.7 6.5-8.0 - g/dL Albumin Level 4.2 3.5-5.0 - g/dL Alkaline Phosphatase 42 39-117 - U/L Potassium 3.8 3.3-5.1 - mmol/L Chloride 107 96-108 - mmol/L Carbon Dioxide 25 22-29 - mmol/L Anion Gap 12 12-20 - Blood Urea Nitrogen 16 9-16 - mg/dL Creatinine 1.00 0.5-1.4 - mg/dL Estimated Glomerular Filt Rate 54 - Glucose Fasting 108 H 60-99 - mg/dL Calcium 9.0 8.4-10.2 - mg/dL L ab:Lipid Panel (Order Date - 02/13/2025) (Collection Date & Time - 02/13/2025 08:30 AM) Value Reference Range Triglycerides 163 H <150 - mg/dL Cholesterol 218 H <200 - mg/dL LDL Cholesterol Calculated 124 H <100 - mg/dL HDL Cholesterol 62 >40 - mg/dL L ab:TSH reflex Free T4 (Order Date - 02/13/2025) (Collection Date & Time - 02/13/2025 08:30 AM) Value Reference Range TSH reflex Free T4 0.73 0.32-4.0 - uIU/mL * Examination: G eneral Examination: GENERAL APPEARANCE: w ell developed, well nourished, in no acute distress. HEAD: n ormocephalic, atraumatic. EYES: p upils equal, round, reactive to light and accommodation, sclera non-icteric. EARS: n ormal. ORAL CAVITY: m ucosa moist. THROAT: c lear. NECK/THYROID: n irene supple, full range of motion, no cervical lymphadenopathy, no bruits. SKIN: w arm and dry, no suspicious lesions. HEART: r egular rate and rhythm, S1, S2 normal, no murmurs.? LUNGS: c lear to auscultation bilaterally. BREASTS: N o mass, no lump. ABDOMEN: s oft, nontender, nondistended, bowel sounds present, normal, no organomegaly , no masses palpable. RECTAL EXAM: d eclined. FEMALE GENITOURINARY: d one by stores despatch hand. EXTREMITIES: n o clubbing, cyanosis, or edema. NEUROLOGIC: n onfocal, motor strength normal upper and lower extremities, sensory exam intact. Assessment: * Assessment: 1. E ncounter for general adult medical examination with abnormal findings - Z00.01 (Primary)? 2. E ssential hypertension - I10 3 . P rediabetes - R73.09? 4. A cquired hypothyroidism - E03.9 5 . L umbar disc disease - M51.9 6 . D epression screening - Z13.31 7 . C olon cancer screening - Z12.11 Plan: * Treatment: 2. E ssential hypertension Continue amLODIPine Besylate Tablet, 5 MG, TAKE 1 TABLET BY MOUTH EVERY DAY; C ontinue Irbesartan-hydroCHLOROthiazide Tablet, 300-12.5 MG, 1 tablet, Orally, Once a day. Notes: stable, will continue current regiment and will continue to monitor 3. P rediabetes Notes: advised diet and exercise, will cntinue to monitor 4. A cquired hypothyroidism Continue Levothyroxine Sodium Tablet, 88 MCG, TAKE ONE BY MOUTH EVERY MORNING. Notes: stable, will continue current regiment 5. L umbar disc disease Continue Gabapentin Capsule, 100 MG, 1 capsule, Orally, Once a day. Notes: stable, will continue current regiment 6. D epression screening Notes: negative screen 7. C olon cancer screening L AB: TSH reflex Free T4 (Ordered for 08/20/2025) Notes: guaiac negative * Procedure Codes: * Follow Up: 6 Months * * Sign off status: Completed true * Provider: Cliff Llanes MD Date: 0 02/20/2025 Generated for Ramsey copeland/Abilio/Justineitting on: 1 07/11/2024 12:12 PM EST History and Physical Notes * HPI (History of Present Illness) Category Sub-Category Detail Notes Category Not es Symptom(s) patient is a 74 yo female here for annual visit with review of recent labs and follow up of chronic issues. Depression Screening PHQ-9 Little inte rest or pleasure in doing things: Not at all Feeling down, depressed, or hopeless: No t at all Trouble falling or staying asleep, or sl eeping too much: Not at all Feeling tired or having little energy: N ot at all Poor appetite or overeating: Not at all Feeling bad about yourself o r that you are a failure, or have let yourself or your family down: Not at all Trouble concentrating on thi ngs, such as reading the newspaper or watching television: Not at all Moving or speaking so slowly that other people could have noticed; or the opposite, being so fidgety or restless that you have been moving around a lot more than usual: Not at all Thoughts that you would be b lubna off or of hurting yourself in some way: Not at all Total Score: 0 Interpretation and Intervention Depression Callie marian Findings: Negative Follow-Up for Depression: : review of PH Q-9 found negative result, no follow-up needed SDOH Questions SDOH Questions In the past year have you been worried about losing housing?: No In the past year have you or any family members you live with been unable to get any of the following when it was really needed? Check all that apply:: None Fall Risk History Have you had any falls with injury i n the past year?: No Have you had two or more falls in the year?: No Communication Needs Communication Needs Does the patient have a hearing impairment: No Does the patient have a vision impairmen t?: Yes If yes, what is the vision impairment?: Glasses Does the patient have a cognition impair ment?: No Examination Category Sub-Category Detail Notes Category Not es General Examination GENERAL APPEARANCE: well dev eloped, well nourished, in no acute distress HEAD: normocephalic, atrau matic EYES: pupils equal, round, reactive to light and accommodation, sclera non-icteric EARS: normal THROAT: clear NECK/THYROID: neck supple, full ra nge of motion, no cervical lymphadenopathy, no bruits HEART: regular rate and rhy thm, S1, S2 normal, no murmurs LUNGS: clear to auscultatio n bilaterally ABDOMEN: soft, nontender, non distended, bowel sounds present, normal, no organomegaly , no masses palpable NEUROLOGIC: nonfocal, motor stre ngth normal upper and lower extremities, sensory exam intact SKIN: warm and dry, no melba picious lesions EXTREMITIES: no clubbing, cyanosi s, or edema BREASTS: No mass, no lump RECTAL EXAM: declined FEMALE GENITOURINARY: done by stores despatch hand ORAL CAVITY: mucosa moist
--- OUTSIDE RECORDS SUMMARY | 2025-03-31 04:55 | XMS_ITS ---
Author Organization Sonny Llanes MD Address [address] [place] [phone] Care Team Providers Care Packaging Machine Operator Name Role Phone Sonny Llanes Primary Care Provider Medications Medication SIG (Take, Route, Frequency, Duration) Notes Start Date End Date Status Levothyroxine Sodium 88 MCG TAKE ONE BY MOUTH EVERY MORNING for 90 days Active Encounters Encounter Location Date Provider Diagnosis Sonny Llanes MD [address] [place] [phone] 03/31/2025 Sonny Llanes Acquired hypothyroidism E03.9 Assessments Encounter Date Diagnosis (ICD Code) Assessment Notes Treatment Notes Treatment Clinical Notes Section Notes 03/31/2025 Acquired hypothyroidism (ICD-10 - E03.9) Plan Of Treatment Medication Medication Name Sig Start Date Stop Date Notes Levothyroxine Sodium 88 MCG TAKE ONE BY MOUTH EVERY MORNING for 90 days Next Appt Details Provider Name:Sonny Hartman ier, 08/21/2025 07:30:00 AM, [address] [place] [address], [address], [place], [place], [phone], Provider Name:Sonny Hartman ier, 08/28/2025 09:00:00 AM, [address] [place] [address], [address], [place], [place], [phone], Provider Name:Sonny Hartman ier, 02/15/2026 07:15:00 AM, [address] [place] [address], [address], [place], [place], [phone], Provider Name:Sonny Hartman ier, 02/22/2026 08:30:00 AM, [address] [place] [address], Suite [facility], [place], [place], [phone], Progress Notes * Renetta WALTERS LDOB:[birth year] (74 yo F)Acc No.[id number]:03/31/2025 Patient: Renetta POTTER :1950 A ge:74 Y S ex:Female Address:[address] [place] [address] , [place] [address] * Refills Refill Levothyroxine Sodium Tablet, 88 MCG, 90, TAKE ONE BY MOUTH EVERY MORNING, 90 days, Refills=3 * true * Date: Generated for Ramsey copeland/Abilio/Justineitting on: 07/11/2024 12:12 PM EST
--- OUTSIDE RECORDS SUMMARY | 2025-05-10 12:11 | XMS_ITS | Encounter Summary ---
Author Organization [facility] Address [address] [facility] [address] [place] [address] Phone Care Team Providers Care Wafer Abrading Machine Tender Name Role Phone Sonny Llanes MD Primary Care Provider Encounter Details Date Type Department Care Team (Latest Contact Info) Description 03/29/2024 Ancillary Orders [facility], X-Ray - [address] [address] Mary Pressley, RETORT FIREMAN [address] [place] [phone] [email or web address] Bilateral primary osteoarthritis of knee (Primary Dx) [...] clinician's provided indication for this examination in [facility]: Pain COMPARISON: None FINDINGS: Left knee: [...] the lateral femoral tibialcompartments us Mary Pressley RETORT FIREMAN IMG XR LOWER EXTREMITY Final Res ult documented in this encounter Visit Diagnoses Diagnosis Bilateral primary osteoarthritis of knee- Primary Bilateral primary osteoarthritis of knee documented in this encounter Care Teams Wafer Abrading Machine Tender Relationship Specialty Start Date End Date Sonny Llanes MD [address] [place] [address] Dr [place], [place] [address] PCP - General 05/28/17 documented as of this encounter Additional Source Comments The information contained in this document represents components of the legal health record. It is not the complete legal health record.[facility]
--- OUTSIDE RECORDS SUMMARY | 2025-05-10 12:11 | XMS_ITS | Clinical Summary ---
Author Organization [facility] Address [address] [facility] [address] [place] [address] Phone Care Team Providers Care Field Service Specialist Name Role Phone Sonny Llanes MD Primary [...] file Insurance MEDICARE PART A & B [facility] MEDICARE PART A & B [facility] MEDICARE PART A & B MEDICARE PART A & B MEDICARE PART A & [place] [address] [place] [address] MEDICARE PART A & B MEDICARE PART A & B Member Subscriber Plan / Payer (Ef fective 2013-Present) Name:Renetta Walters Member ID:[id number] Relation to Subscriber:Self Name:Renetta Walters Subscriber ID:[id number] Payer ID:[id number] Group ID:Not on file Type:Medicare Address: [facility] [employer] [facility] [address] [place] [address] [place] [address] MEDICARE PART A & B Member Subscriber Plan / Payer (Ef fective 2013-Present) Name:Renetta Walters Member ID:[id number] Relation to Subscriber:Self Name:Renetta Walters Subscriber ID:[id number] Payer ID:[id number] Group ID:Not on file Type:Medicare Address: [facility].[address] [address] [facility] MEDICARE PART A & B [facility] Care Teams Field Service Specialist Relationship Specialty Start Date End Date Sonny Llanes MD [address] [place] [address] [place] [address] PCP - General 05/28/17 Additional Source Comments The information contained in this document represents components of the legal health record. It is not the complete legal health record.[facility]
--- OUTSIDE RECORDS SUMMARY | 2025-05-10 12:11 | XMS_ITS | Patient Health Record ---
Author Organization Sonny Llanes MD Address [address] [place] [phone] Care Team Providers Care Manager Dish Name Role Phone Sonny Llanes Primary Care Provider Allergies No Known Allergies Results Component Value Reference Range Notes TSH reflex Free T4 Reviewed date:08/12/2024 12:55:39 PM Interpretation: Performing Lab:[facility], [address] [place] [phone] Notes/Report: TSH reflex Free T4 0.91 0.32-4.0 uIU/mL Complete Blood Count Auto Di ff Reviewed date:02/13/2025 05:08:04 PM Interpretation: Performing Lab:[facility], [address] [place] [phone] Notes/Report: White Blood Count 6.1 4.8-10.8 X10*3/uL [...] NRBC Abs Auto 0.000 0.0-0.012 X10*3/uL Comprehensive [place]. Panel Fa st Reviewed date:02/13/2025 05:07:38 PM Interpretation: Performing Lab:[facility], [address] [place] [phone] Notes/Report: Sodium 140 135-145 mmol/L Potassium 3.8 [...] Panel Reviewed date:02/13/2025 12:32:26 PM Interpretation: Performing Lab:[facility], [address] [place] [phone] Notes/Report: Triglycerides 163 <150 mg/dL Desirable Triglyceride: [...] T4 Reviewed date:02/13/2025 12:32:16 PM Interpretation: Performing Lab:[facility], [address] [place] [phone] Notes/Report: TSH reflex Free T4 0.73 0.32-4.0 uIU/mL Microalbumin, Random Reviewed date:02/13/2025 12:35:23 PM Interpretation: Performing Lab:[facility], [address] [place] [phone] Notes/Report: Creatinine Urine 95.53 Microalbumin Urine < 5.0 Microalbum/Creatinine Ratio Ur TNP <30 ug/mg cr Unable to calculate albumin/creatinine ratio due to low microalbumin or creatinine result. Hemoglobin A1c Reviewed date:02/13/2025 10:53:20 AM Interpretation: Performing Lab:[address] [address] Notes/Report: Hemoglobin A1c % 5.6 <6.0 % [...] average glucose, using the formula of the I2R-Wijwvkr Average Glucose study (ADAG), Diabetes Care, Vol.31,#8, Dec. 2007 UA ClnCatch+Micro w/rflx Cul t Reviewed date:02/13/2025 05:14:02 PM Interpretation: Performing Lab:[address] [phone] Notes/Report: Urine, Clean Catch Color Urine Yellow Appearance Urine Clear PH 5.5 5.0-9.0 Glucose Urine UA Negative Negative mg/dL Urine Blood Negative Negative Specific Pike - Urine 1.015 1.005-1.025 Urine Protein Negative Neg-Trace mg/dL Urine Ketones Negative Negative mg/dL Nitrite Urine Negative Negative Leukocyte Esterase Urine Trace Negative RBC Urine 0-2 0-2 /HPF WBC Urine 0-5 0-5 /HPF Squamous Epithelial Cell Urine 11-20 0-2 /HPF Bacteria Urine None Seen None Seen Hyaline Casts Urine 0-2 0-2 /LPF Hold Gold Reviewed date:08/12/2024 12:23:17 PM Interpretation: Performing Lab:[address] [address] Notes/Report: Jimena Treviño See Note Specimen held untested for 24 hours; Call to request Chemistry testing. MM tomosynthesis screening B I Reviewed date:10/31/2024 05:04:11 PM Interpretation: Performing Lab: Notes/Report: [facility] [address] [place] [address] Mammography Report Signed Patient: Renetta Walters MR#: [id number] : 1950 Acct:[id number] Age/Sex: 74 / F ADM Date: 10/24/24 Loc: HO.MAMMO Attending Dr: Sonny lLanes MD Ordering Physician: Ivan Sanders MD Results: 2Beni gn Findings Date of Service: 10/24/24 Follow Up: 1 Year From Orig inal Mammogram Procedure(s): MM tomosynthesis screening BI Accession Number(s): [id number] cc: Sonny Llanes MD; CHERY SILVA MD; [...] OV> 10/29/24 1607 DD/ 0815 TD/TT: 10/24/24 08 Service Greeter: [facility] [address] [place], [place] [address] Mammography Report Signed Patient: Renetta Walters MR#: [id number] : 1950 Acct:[id number] Age/Sex: 74 / F ADM Date: 10/24/24 Loc: HO.MAMMO Attending Dr: Sonny Llanes MD Ordering Physician: Ivan Sanders MD Results: 2Beni gn Findings Date of Service: 10/24/24 Follow Up: 1 Year From Orig ina Mammogram Procedure(s): MM tomosynthesis screening BI Accession Number(s): [id number] cc: Sonny Llanes MD; CHERY SILVA MD; [...] 10/29/24 1607 DD/ 0815 TD/TT: 10/24/24 0830 Service Greeter: Jimena Treviño Reviewed date:02/13/2025 10:53:03 AM Interpretation: Performing Lab:[facility], [address] [place] [phone] Notes/Report: Jimena Treviño See Note Specimen held untested for 24 hours; Call to request Chemistry testing. Reason For Referral No Information Medications Medication SIG (Take, Route, Frequency, Duration) Notes Start Date End Date Status Levothyroxine Sodium 88 MCG TAKE ONE BY MOUTH EVERY MORNING for 90 days Active Imitrex 100 MG 1 tablet Orally once a day for 30 days Not-Taking Calcium 500 MG 1 tablet with meals Orally Twice a day for 30 day(s) Active traMADol HCl 50 MG 1 tablet as needed Orally 3 times a day as needed for 10 days 10/01/2021 Not-Taking traMADol HCl 50 MG 1 tablet as needed Orally 3 times a day as needed for 10 days 10/01/2021 Not-Taking Irbesartan-hydroCHLOROthia zide 300-12.5 MG 1 tablet Orally Once a day Active amLODIPine Besylate 5 MG TAKE 1 TABLET B Y MOUTH EVERY DAY Active ZyrTEC 10mg Once a day Not-Kyree ing Gabapentin 100 MG 1 capsule Orally Onc e a day Active Vitamin D 1000 UNIT 1 tablet Orally Once a day Active ProAir RespiClick 108 (90 Base) MCG/ACT 1 puff as needed Inhalation every 4 hrs for 90 days 02/16/2017 Not-Taking Centrum Silver Ultra Womens Orally Active Ciclopirox 0.77% as directed applied topically twice a day for 14 days 02/07/2021 Not-Taking dexAMETHasone 4 MG 1 tablet Orally Thre e times a day for 7 days 10/01/2021 Not-Takin g Ativan 0.5 MG 1 tablet Orally as needed for 10 days 08/18/2022 Not-Taking Anastrozole 1 MG 1 tablet Orally Once a day Not-Taking Immunizations Vaccine Route Administration Date Status Comme [...] red Influenza High Dose Unknown 02/07/2020 Administered Elijah chang Covid Vaccine Unknown 07/21/2020 Administered Moderna Covid [...] Problem Status W/U Status Risk Notes Problem 75930465 Lymphocytosis (D72.820) Active confirmed Problem 669332860 Tubular adenoma (D36.9) Active confirmed Problem 362137292 Other specified menopausal and perimenopausal disorders (N95.8) Active confirmed Problem Disorder of lumbar disc (725594831) Lumbar disc disease (M51.9) Active confirmed Problem 344898137 Gastroesophageal reflux disease without esophagitis (K21.9) Active confirmed Problem 17544637 Essential hypertension (I10) Active confirmed Problem 508367603 Acquired hypothyroidism (E03.9) Active confirmed Problem 7272155 Prediabetes (R73.09) Active confirmed Problem 842095329 History of breas t cancer (Z85.3) Active confirmed Problem 7763299 Migraine with au ra and without status migrainosus, not intractable (G43.109) Active confirmed Problem 064720934 Lymphocele (I89.8) Active confirmed Problem Grief (649885764) Grief (F43.20) Active confirmed Problem 206397769 Arthritis of kne e (M17.10) Active confirmed Problem 5043979869342 Wrist arthritis (M19.039) Active confirmed Problem 112962387 Age-related incipient cataract, unspecified laterality (H25.099) Active confirmed Vital Signs Blood pressure diastolic 80 mm Hg 02/20/2025 juan jose ght is down 2 pounds since 08-15-24 Height 65 in 02/20/2025 weight is down 2 pounds since 08-15-24 Blood pressure systolic 132 mm Hg 02/20/2025 weig ht is down 2 pounds since 08-15-24 Weight 198 lbs 02/20/2025 weight is down 2 pounds since 08-15-24 BMI 32.95 kg/m2 02/20/2025 weight is down 2 pounds since 08-15-24 Encounters Encounter Location Date Provider Diagnosis Sonny Llanes MD [address] [place] [phone] 08/12/2024 Sonny Llanes Acquired hypothyroidism E03.9 Sonny Llanes MD [address] [place] [address] [id number] 02/13/2025 Sonny Llanes Blood tests for routine general physical examination Z00.00 ; Encounter for administration of vaccine Z23 ; Essential hypertension I10 ; Acquired hypothyroidism E03.9 ; Prediabetes R73.09 and Lymphocytosis D72.820 Sonny Llanes MD [address] [place] [address] [address] [place] [id number] 08/15/2024 oSnny Llanes Essential hypertensi on I10 and Acquired hypothyroidism E03.9 Sonny Llanes MD [address] [place] [address] [id number] 02/20/2025 Sonny Llanes Essential hypertensi on I10 ; Encounter for general adult medical examination with abnormal findings Z00.01 ; Prediabetes R73.09 ; Acquired hypothyroidism E03.9 ; Lumbar disc disease M51.9 ; Depression screening Z13.31 and Colon cancer screening Z12.11 Sonny Llanes MD [address] [place] [address] [id number] 06/07/2024 Sonny Llanes Essential hypertensi on I10 Sonny Llanes MD [address] [place], [place] [phone] 03/31/2025 Sonny Llanes Acquired hypothyroidism E03.9 Assessments Encounter Date Diagnosis (ICD Code) Assessment Notes Treatment Notes Treatment Clinical Notes Section Notes 08/12/2024 Acquired hypothyroidism (ICD-10 - E03.9) 02/13/2025 Blood tests for routine general physical examination (ICD-10 - Z00.00) oo 02/13/2025 Encounter for administration of vaccine (ICD-10 - Z23) oo 08/15/2024 Essential hypertension (ICD-10 - I10) doing well on meds, will continue current regiment 02/20/2025 Essential hypertension (ICD-10 - I10) stable, will continue current regiment and will continue to monitor 02/20/2025 Encounter for general adult medical examination with abnormal findings (ICD-10 - Z00.01) Labs reviewed and discussed with patient 06/07/2024 Essential hypertension (ICD-10 - I10) 03/31/2025 Acquired hypothyroidism (ICD-10 - E03.9) 02/13/2025 Essential hypertension (ICD-10 - I10) oo 08/15/2024 Acquired hypothyroidism (ICD-10 - E03.9) good tsh.will continue current regiment 02/20/2025 Prediabetes (ICD-10 - R73.09) advised diet and exercise, will cntinue to monitor 02/13/2025 Acquired hypothyroidism (ICD-10 - E03.9) oo 02/20/2025 Acquired hypothyroidism (ICD-10 - E03.9) stable, will continue current regiment 02/13/2025 Prediabetes (ICD-10 - R73.09) oo 02/20/2025 Lumbar disc disease (ICD-10 - M51.9) stable, will continue current regiment 02/13/2025 Lymphocytosis (ICD-10 - D72.820) oo 02/20/2025 Depression screening (ICD-10 - Z13.31) negative screen 02/20/2025 Colon cancer screening (ICD-10 - Z12.11) guaiac negative 08/15/2024 Other depression well controlled Plan Of Treatment Pending Test Test Name Order Date Electrocardiogram (EKG) 11/22/2015 Electrocardiogram (EKG) 12/09/2016 Electrocardiogram (EKG) 01/06/2019 BONE DENSITY DEXA 10/14/2012 US ABD 01/13/2022 Stress Test 02/15/2024 US BREAST LEFT 08/21/2016 Next Appt Details Provider Name:Sonny Hartman ier, 08/21/2025 07:30:00 AM, [address] [place] [address], [address], [place], [place], [phone], Provider Name:Sonny Hartman ier, 08/28/2025 09:00:00 AM, [address] [place] [address], Suite [facility], [place], [place], [phone], Provider Name:Sonny Hartman ier, 02/15/2026 07:15:00 AM, [address] [place] [address], Suite [facility], [place], [place], [phone], Provider Name:Sonny Hartman ier, 02/22/2026 08:30:00 AM, [address] [place] [address], [address], [place], [place], [phone], Insurance Providers Payer Name Payer Address Payer Phone Subscriber Number Group Number Insured Name Patient Relationship to Insured Coverage Start Date Coverage End Date [employer] [address] [place], [place] [id number] Renetta Walters Self - patient is the insured Medical (General) History Medical History History ICD Code herpes zoster 2009 colonoscopy 02/2008 hyperpla stic due in 2017 Dr. Romero; 01/28/18 colonoscopy w/Dr. 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 Brink Endo 01/28/18 - Dr. Romero fecal occult blood 2024 negative repeat colonoscopy in Surgical History Surgery Date(Month/Year) cholecystectomy hysterectomy, total with bilateral salpi fallon-oophorectomy (BSO) partial lt breast mastectomy 08/2016
--- OUTSIDE RECORDS SUMMARY | 2025-05-10 12:11 | XMS_ITS | Clinical Summary ---
Author Organization [facility] Prior to 10/22/[address] [place] [address] Care Team Providers Care Anesthesia Director Name Role Phone Sonny Llanes MD Primary Care Provider [phone] Allergies No known active allergies Medications Medication [...] age to complete this topic Care Teams Anesthesia Director Relationship Specialty Start Date End Date Sonny Llanes MD [address] [place] [phone] PCP - General Internal Medicine 12/24/16
--- OUTSIDE RECORDS SUMMARY | 2025-05-10 12:12 | XMS_ITS | Patient Health Record ---
Author Organization [facility] Address [address] [place] [address] Care Team Providers Care Subcontract Manager Name Role Phone Sonny Llanes MD Primary Care Provider Shikha Chapman Unavailable [phone] Allergies No Known Allergies Reason For Referral No Information Medications Medication SIG (Take, Route, Frequency, Duration) Notes Start Date End Date Status Calcium Active Centrum Silver 50+Women - Tablet one tablet Orally once a day Active Imitrex 100 MG Tablet 1 tablet as needed Orally Once a day Active Vitamin D3 25 MCG (1000 UT) Tablet 1 capsule Orally Once a day Active Anastrozole 1 MG Tablet 1 tablet Orally Once a day Active Irbesartan-hydroCHLOROthiazi de 150-12.5 MG Tablet 1 tablet Orally Once a day Active Levothyroxine Sodium 88 MCG Tablet 1 tablet on an empty stomach in the morning Orally Once a day Active Immunizations Vaccine Route Administration Date Status Comme nts Influenza Unknown 04/24/2017 Administered Influenza Unknown 01/23/2021 Administered Social History Tobacco Use: Social History Observation Description Date Details (start date - stop date) Never Smoker NA - NA Social History Drugs/Alcohol: Social Info Question Answer Notes Alcohol Screen Did you have a drink containing alcohol in the past year? Yes How often did you have a drink containing alcohol in the past year? 2 to 4 times a month (2 points) How many drinks did you have on a typical day when you were drinking in the past year? 1 or 2 drinks (0 point) How often did you have 6 or more drinks on one occasion in the past year? Never (0 point) Points 2 Interpretation Negative Tobacco Use: Social Info Question Answer Notes Tobacco Use/Smoking Patient is a nonsmoker Additional Details Category Social Info Options Details Miscellaneous: Marital status: Occupation: Retired October Section Notes: Nonsmoker; no sig alcohol Nonsmoker; no sig alcohol Problems Problem Type SNOMED Code ICD Code Onset Dates Problem Status W/U Status Risk Notes Problem Screening for malignant neoplasm of colon (404488702) Encounter for screening for malignant neoplasm of colon (Z12.11) Active confirmed Problem History of adenomatous polyp of colon (974962002) History of adenomatous polyp of colon (Z86.010) Active confirmed Problem Preprocedural examination (483836572170841) Preprocedural examination (Z01.818) Active confirmed Problem Gastroesophageal reflux disease (206013194) Gastroesophageal reflux disease, esophagitis presence not specified (K21.9) Active confirmed Problem Diverticulosis of colon (577616861) Diverticulosis of colon (K57.30) Active confirmed Plan Of Treatment Future Test Test Name Order Date UPPER GI ENDOSCOPY 12/16/2017 COLONOSCOPY 12/16/2017 COLONOSCOPY 02/21/2021 Insurance Providers Payer Name Payer Address Payer Phone Subscriber Number Group Number Insured Name Patient Relationship to Insured Coverage Start Date Coverage End Date MEDICARE OF [place] [address] [place] [address] [phone] [id number] KENDRA SOTO Self - patient is the insured [employer] [address] [place] [address] [id number] KENDRA SOTO Self - patient is the insured Medical (General) History Medical History History ICD Code Breast cancer 07/2016--left--surgery as b elow Pneumonia 2016 Denies [place],DM,CVA,Lung disease,renal dise ase Seasonal allergies HTN GERD--EGD [...] XRT for nitesh st cancer 08/2016 Cholecystectomy 2000 HEVER Bunionectomy left foot
--- OUTSIDE RECORDS SUMMARY | 2025-05-10 12:13 | XMS_ITS | Patient Health Record ---
Author Organization [facility] Address [address] [place] [address] Care Team Providers Care Oilseed Meat Presser Name Role Phone Sonny Llanes MD Primary Care Provider Mai Garcia Unavailable [phone] Allergies No Known Allergies Reason For Referral [...] Status Risk Notes Problem Acquired hallux valgus (30165436) Hallux valgus (acquired), left foot (M20.12) Active confirmed Problem Acquired hallux valgus (47386379) Hallux valgus (acquired), right foot (M20.11) Active confirmed Plan Of Treatment Pending Test Test Name Order Date X ray : Foot, left 3V 11/28/2022 X ray : Foot, right 3V 11/28/2022 Insurance Providers Payer Name Payer Address Payer Phone Subscriber Number Group Number Insured Name Patient Relationship to Insured Coverage Start Date Coverage End Date Octavio [facility] [address] [place] [address] [id number] Contreras Self - patient is the insured Medical (General) History Medical History History ICD Code Back,Hip,and Knee pain Cancer covid-19 Gall bladder Headaches/Migraines High blood pressure Reflux ( GERD) Sciatica chronic sinusitis thyroid Measles Chicken pox Surgical History Surgery Date(Month/Year) tonsillectomy 1969 hysterectomy 1999 gall bladder 2000 bunionectomy L foot 2015
--- OUTSIDE RECORDS SUMMARY | 2025-05-10 12:13 | XMS_ITS | Clinical Summary ---
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 Name Role Phone Sonny Llanes MD Primary Care Provider [phone] Allergies No known active allergies Medications amLODIPine [...] outer quadrant of left female breast 12/31/2016 Surgical History Surgery Date Site/Laterality Comments CHOLECYSTECTOMY PROCEDURE:CHOLECYSTECTOMY TONSILLECTOMY PROCEDURE:TONSILLECTOMY HYSTERECTOMY PROCEDURE:HYSTERECTOMY OOPHORECTOMY PROCEDURE:OOPHORECTOMY BUNIONECTOMY PROCEDURE:BUNIONECTOMY Medical History Medical History Date Comments Hypertension DX:Hypertension GERD (gastroesophageal reflux disease) DX:GERD (gastroesophageal reflux disease) Disease of thyroid gland DX:Dise ase of thyroid gland Breast cancer ([facility]/HCC V24, CMS/[facility] V28) DX:Breast cancer (HCC) Heart murmur DX:Heart [...] Description 11/07/2025 9:00 AM EDT Office Visit Hematology Oncology [address] [place] [id number] Cadence Capone DO [address] [place] [address] Health Maintenance Due Date Last Done Comments DTaP,Tdap,and Td Vaccines (1 - Tdap) 09/01/1967 Zoster Vaccines (1 of 2) 09/01/1967 Pneumococcal Vaccine: 50+ Years (2 of 2 - PCV) 01/04/2020 01/03/2019 Cholesterol Screening (Lipid Panel) 05/01/2022 Falls Risk Assessment 05/01/2022 Hepatitis C Screening 05/01/2022 Social Influencers of Health Screening 05/01/2022 Depression Screening 05/25/2024 Hypertension/CHF/CAD Annual BMP Blood Test 11/07/2024 COVID-19 Vaccine ( season) 2025 02/24/2024, 02/24/2023, 03/17/2022, Additional history [...] Procedure Name Priority Date/Time Associated Diagnosis Comments [facility] DEXA AXIAL SKELETON Routine 03/04/2023 10:03 AM EDT Other specified disorders of bone density and structure, multiple sites from Last 3 Months or Most Recently Relevant to Health Maintenance Results * [facility] DEXA AXIAL SKELETON (03/04/2023 10:03 AM EDT) Anatomical Region Laterality Modality Mammography 03/04/2023 8:47 AM EDT Narrative 03/04/2023 10:03 AM EDT [facility] Diagnostic Imaging Department [address] [place] [id number] Patient: YAWYENNYRENETTA/Age/Sex: 1950 - 72 - F Unit#: [id number] [facility] Mnemonic[facility] Ordering Physician: ELIER SILVA MD [facility] Dexa Axial Skeleton - 03/04/23922 [...] probability of hip fracture of 1.7%. Code 43119 Dictating Physician: VAIBHAV MUIR MD Electronically Signed by: VAIBHAV MUIR MD Dic Date/Time: 03/04/23 100 Sign date/Time: 03/04/23 100 Procedure Note Vaibhav Muir MD - 06/30/2023 [facility] Diagnostic Imaging Department [address] [place] [address] Patient: FRANKLYN WALTERSCANDELARIO Moreno./Age/Sex: 1950 - 72 - F Unit#: [id number] Location/Status: [facility] Mnemonic[facility] Ordering Physician: ELIER SILVA MD Suzanne Dexa Axial Skeleton - 10/11/23 - 0923 [...] density of the femurs bilaterally is 0.917 gm/cc8csvie is 91% of that of young normals [...] probability of hip fracture of 1.7%. Code 81743 Dictating Physician: VAIBHAV MUIR MD Electronically Signed by: VAIBHAV MUIR MD Dic Date/Time: 03/04/23 1001 Sign date/Time: 03/04/23 1003 Elier Silva MD IMG BI PROCEDURES Final Result from Last 3 Months or Most Recently Relevant to Health Maintenance Insurance [employer] [place] ([employer]) Care Teams Door Repairman Relationship Specialty Start Date End Date Sonny Llanes MD [address] [place] [address] [place] [id number] PCP - General Internal Medicine 12/24/16
== END 2025-05-10 10:02 | disposition home or self-care (01) ==
LOC: HO.HMGAL 10:02
PROVIDERS: PCP Internal Medicine; Visit Provider Registered Nurse Emergency
DX: J30.89 Other allergic rhinitis (principal)
CPT/HCPCS: 95117; 95165